=== PATIENT | female | born 1940 | race African-American/Black ===

== ENCOUNTER → 2020-04-16 09:32 | Outpatient (BNVA) | payer MEDICARE, SELFPAY | PROVIDERS: PCP Internal Medicine; Referring Provider Internal Medicine; Visit Provider Internal Medicine | DX: E89.0 Postprocedural hypothyroidism (principal); Z85.850 Personal history of malignant neoplasm of thyroid; E55.9 Vitamin D deficiency, unspecified; R91.8 Other nonspecific abnormal finding of lung field; M81.0 Age-related osteoporosis without current pathological fracture; E21.3 Hyperparathyroidism, unspecified; Z79.899 Other long term (current) drug therapy | CPT/HCPCS: Q3014 ==

== ENCOUNTER 2020-04-18 09:51 | Outpatient (REF) | payer MEDICARE, SELFPAY ==
[2020-04-18 16:31] LABS: Albumin Level 3.8 g/dL (3.5-5.0); Blood Urea Nitrogen 23 mg/dL (9-16); Calcium 8.8 mg/dL (8.4-10.2); Estimated Glomerular Filt Rate 50
[2020-04-18 16:47] LABS: Free T4 (Free Thyroxine) 0.92 ng/dL (0.71-1.85); Thyroid Stimulating Hormone 25.01 uIU/mL (0.32-4.0); Vitamin D 25-OH Total 23.3 ng/mL (>30)
[2020-04-20 11:26] LABS: Calcium (PTHI) 9.1 mg/dL (8.6-10.4); PTHI 83 pg/mL (14-64)
== END 2020-04-18 09:52 | disposition home or self-care (01) ==
LOC: HO.LAB 09:51
PROVIDERS: PCP Internal Medicine; Referring Provider Internal Medicine; Visit Provider Hospitalist
DX: E55.9 Vitamin D deficiency, unspecified (principal); E89.0 Postprocedural hypothyroidism; E21.3 Hyperparathyroidism, unspecified; M81.0 Age-related osteoporosis without current pathological fracture; J44.9 Chronic obstructive pulmonary disease, unspecified; R91.8 Other nonspecific abnormal finding of lung field; Z85.850 Personal history of malignant neoplasm of thyroid
CPT/HCPCS: 82040; 82306; 82310; 82565; 83970; 84439; 84443; 84520; Q3014

== ENCOUNTER 2020-04-19 14:12 | Outpatient (REF) | payer MEDICARE, SELFPAY ==
--- NOTE | 2020-04-19 14:12 | CT_ITS ---
EXAMINATION: CT HEAD WITHOUT CONTRAST CLINICAL INFORMATION: History of malignant neoplasm of the thyroid. COMPARISON: None. TECHNIQUE: Contiguous axial imaging was performed from the skull base to vertex without intravenous contrast. This CT examination was performed using dose optimization techniques as appropriate, variously including the following: * Automated exposure control * Adjustment of mA and/or kV according to patient size (this includes techniques or standardized protocols for targeted exams where dose is matched to indication/reason for exam; i.e. extremities or head) Use of iterative reconstruction technique DLP: 650 mGy-cm. FINDINGS: There is no evidence of acute intracranial hemorrhage or territorial infarction. No abnormal mass effect or midline shift is seen. Woodruff to white matter differentiation is well preserved. No extra-axial fluid collections are identified. No hydrocephalus. Proportional prominence of the ventricles and sulcal spaces is consistent with moderate volume loss. There is no abnormal attenuation within the brain parenchyma. The osseous structures and soft tissues are normal. Near complete opacification of the right maxillary sinus. Prominent left maxillary mucous retention cyst. The mastoid air cells and visualized portions of the paranasal sinuses are otherwise well aerated. CT/CT head/brain wo con IMPRESSION: No acute intracranial pathology. Cerebral volume loss. Bilateral maxillary sinus opacification.
== END 2020-04-19 14:13 | disposition home or self-care (01) ==
LOC: HO.CT 14:12
PROVIDERS: PCP Internal Medicine; Visit Provider Internal Medicine
DX: Z85.850 Personal history of malignant neoplasm of thyroid (principal)
CPT/HCPCS: 70450

== ENCOUNTER 2020-05-10 09:12 | Outpatient (REF) | payer MEDICARE, SELFPAY ==
--- NOTE | 2020-05-10 09:20 | CT_ITS ---
EXAMINATION: CT CHEST WITHOUT CONTRAST CLINICAL INFORMATION: 80-year-old female with history of pulmonary nodules. Other nonspecific abnormal finding of lung nesbitt. COMPARISON: PET-CT imaging from 05/12/2019. TECHNIQUE: Multidetector volumetric CT imaging of the chest was done. Axial MIP volume rendering provided. Sagittal and coronal reformatted images were obtained. This CT examination was performed using dose optimization techniques as appropriate, variously including the following: *Automated exposure control *Adjustment of mA and/or kV according to patient size (this includes techniques or standardized protocols for targeted exams where dose is matched to indication/reason for exam; i.e. extremities or head) *Use of iterative reconstruction technique DLP: 98 mGy-cm FINDINGS: LUNGS AND PLEURA: Mild centrilobular and paraseptal emphysema. Chronic subpleural reticular opacity of scarring at lung apices. Again noted are multiple bilateral groundglass and solid pulmonary nodules, better shown on the current thin slice 0.75 mm images than on the 2.5 mm thick images from the PET-CT imaging exam of 05/12/2019. Findings include a groundglass opacity in the posteromedial right upper lobe that currently measures approximately 1.1 x 1.4 cm (image 102, series 7), compared to 0.9 x 1.2 cm on 05/12/2019. Again, precise comparison with 05/12/2019 is limited by the differences in image slice thickness. A pleural-based nodule measuring up to 0.5 cm AP of the lateral right lower lobe is unchanged (image 292, series 7). The findings in the right middle lobe include a stable 0.3 cm solid, noncalcified nodule in the lateral segment (image 349, series 7). A spiculated left upper lobe nodule of 1.4 cm average diameter that causes retraction of the adjacent major fissure has a stable appearance compared to 05/12/2019. Immediately anterior to the spiculated nodule, there is a old irregular focus of mixed attenuation containing a 0.5 cm sized irregular solid component and surrounding groundglass component. Other groundglass and nodular opacities in the left lung remain similar in appearance compared to 05/12/2019, as well. No pleural effusion. CARDIOVASCULAR: The heart size is normal. Mild atherosclerotic calcification of the thoracic aorta without aneurysm. Pulmonary arteries are normal in size. No pericardial effusion. MEDIASTINUM AND LOWER NECK: Thyroid gland is surgically absent. The esophagus is unremarkable. No mediastinal mass. LYMPHATICS: No axillary or internal mammary lymphadenopathy. No pathologic sized mediastinal or hilar lymph nodes. UPPER ABDOMEN: The evaluation of solid and hollow viscera of the upper abdomen is limited on this noncontrast examination. There is atherosclerotic calcification of the visualized abdominal aorta. Gallbladder is surgically absent. Adrenal glands are unremarkable. There are a few bilateral renal calculi, largest on the right measuring 0.4 cm. No hydronephrosis. A 3.5 cm cortical cyst of the left kidney has a simple appearance on these noncontrast images. An old, stable fat-containing right-sided lumbar hernia is noted inferolateral to the right 12th rib. SKELETAL AND CHEST WALL: Bones are diffusely osteoporotic. Chronic, severe hyperkyphosis (and dextroscoliosis) of the thoracic spine. No aggressive osseous lesions. CT/CT chest wo con IMPRESSION: * Mild pulmonary emphysema. * Multiple solid, subsolid and groundglass nodular opacities are scattered throughout both lungs, and, overall, these have not significantly changed compared to 05/12/2019. The spiculated nodule of 1.4 cm average diameter in the posterior left upper lobe remains stable in size compared to 05/12/2019. Although the size and morphology of the nodule raise suspicion for malignancy, the 12 month stability suggests possibility of a benign lesion. * No lymphadenopathy within the chest. No pleural effusion. * There are a few small nonobstructing renal calculi. * There is an old fat-containing right lumbar hernia.
== END 2020-05-10 09:13 | disposition home or self-care (01) ==
LOC: HO.CT 09:12
PROVIDERS: PCP Internal Medicine; Visit Provider Hospitalist
DX: R91.8 Other nonspecific abnormal finding of lung field (principal)
CPT/HCPCS: 71250

== ENCOUNTER → 2020-06-07 11:54 | Outpatient (BNVA) | payer MEDICARE, SELFPAY | PROVIDERS: PCP Internal Medicine; Visit Provider Internal Medicine | DX: Z13.89 Encounter for screening for other disorder (principal) | CPT/HCPCS: Q3014 ==

== ENCOUNTER → 2020-06-19 14:53 | Outpatient (BNVA) | payer MEDICARE, SELFPAY | PROVIDERS: PCP Internal Medicine; Visit Provider Internal Medicine Cardiovascular Disease | DX: I50.30 Unspecified diastolic (congestive) heart failure (principal); I48.0 Paroxysmal atrial fibrillation | CPT/HCPCS: 93005; 99212 ==

== ENCOUNTER → 2020-06-25 13:22 | Outpatient (BNVA) | payer MEDICARE, SELFPAY | PROVIDERS: PCP Internal Medicine; Visit Provider Hospitalist | DX: R91.8 Other nonspecific abnormal finding of lung field (principal); J41.0 Simple chronic bronchitis | CPT/HCPCS: 99212 ==

== ENCOUNTER → 2020-08-30 12:21 | Outpatient (BNVA) | payer MEDICARE, SELFPAY | PROVIDERS: PCP Internal Medicine; Visit Provider Internal Medicine | DX: E89.0 Postprocedural hypothyroidism (principal); Z85.850 Personal history of malignant neoplasm of thyroid; E55.9 Vitamin D deficiency, unspecified; R91.8 Other nonspecific abnormal finding of lung field; M81.0 Age-related osteoporosis without current pathological fracture; E21.3 Hyperparathyroidism, unspecified | CPT/HCPCS: 99212 ==

== ENCOUNTER 2020-09-07 13:56 | Outpatient (REF) | payer MEDICARE, SELFPAY ==
[2020-09-07 15:17] LABS: Albumin Level 3.7 g/dL (3.5-5.0); Calcium 8.9 mg/dL (8.4-10.2); Phosphorus 3.8 mg/dL (2.7-4.5)
[2020-09-07 15:42] LABS: Free T4 (Free Thyroxine) 1.51 ng/dL (0.71-1.85); Thyroid Stimulating Hormone 0.09 uIU/mL (0.32-4.0)
[2020-09-10 13:43] LABS: Calcium (PTHI) 9.2 mg/dL (8.6-10.4); PTHI 78 pg/mL (14-64)
== END 2020-09-07 13:57 | disposition home or self-care (01) ==
LOC: HO.LAB 13:56
PROVIDERS: PCP Internal Medicine; Visit Provider Internal Medicine
DX: E21.3 Hyperparathyroidism, unspecified (principal); E55.9 Vitamin D deficiency, unspecified; E89.0 Postprocedural hypothyroidism
CPT/HCPCS: 36415; 82040; 82306; 82310; 83970; 84100; 84439; 84443

== ENCOUNTER → 2020-10-24 11:46 | Outpatient (BNVA) | payer MEDICARE, SELFPAY | PROVIDERS: PCP Internal Medicine; Visit Provider Internal Medicine | DX: E89.0 Postprocedural hypothyroidism (principal); E55.9 Vitamin D deficiency, unspecified; M81.0 Age-related osteoporosis without current pathological fracture; E21.3 Hyperparathyroidism, unspecified | CPT/HCPCS: Q3014 ==

== ENCOUNTER 2020-11-06 11:33 | Outpatient (REF) | payer MEDICARE, SELFPAY ==
[2020-11-06 13:20] LABS: Free T4 (Free Thyroxine) 1.48 ng/dL (0.71-1.85); Thyroid Stimulating Hormone 0.25 uIU/mL (0.32-4.0)
[2020-11-06 13:57] LABS: Alanine Aminotransferase 9 U/L (0-31); Albumin Level 3.5 g/dL (3.5-5.0); Alkaline Phosphatase 61 U/L (39-117); Anion Gap 11 (12-20); Aspartate Amino Transferase 18 U/L (5-31); Bilirubin Total 0.5 mg/dL (0.0-1.0); Blood Urea Nitrogen 20 mg/dL (9-16); Carbon Dioxide 26 mmol/L (22-29); Chloride 108 mmol/L (96-108); Estimated Glomerular Filt Rate 48; Glucose Random 76 mg/dL (60-115); Phosphorus 3.8 mg/dL (2.7-4.5); Potassium 4.4 mmol/L (3.3-5.1); Sodium 141 mmol/L (135-145); Total Protein 6.4 g/dL (6.5-8.0)
[2020-11-08 13:06] LABS: Calcium (PTHI) 8.8 mg/dL (8.6-10.4); PTHI 60 pg/mL (14-64)
== END 2020-11-06 11:34 | disposition home or self-care (01) ==
LOC: HO.LAB 11:33
PROVIDERS: PCP Internal Medicine; Visit Provider Internal Medicine
DX: E21.3 Hyperparathyroidism, unspecified (principal); E89.0 Postprocedural hypothyroidism; E55.9 Vitamin D deficiency, unspecified
CPT/HCPCS: 36415; 80053; 82306; 83970; 84100; 84439; 84443

== ENCOUNTER 2020-12-06 12:46 | Outpatient (REF) | payer MEDICARE, SELFPAY ==
--- NOTE | ~2020-12-06 | MM_ITS ---
EXAMINATION: BONE DENSITOMETRY CLINICAL INDICATION: Age-related osteoporosis without current pathological fracture. COMPARISON: Previous BD dated 12/10/2018 and baseline BD dated 10/13/2014. TECHNIQUE: Using a [employer] DXA System (software version: 13.1) manufactured by [employer], dual-energy x-ray absorptiometry was performed of the lumbar spine and left hip. The images are of good technical quality. Summary results are attached. FINDINGS: AP SPINE L1-L4: Current: BMD 0.451 g/cm2, Z-score -3.8, T-score -6.1, osteoporosis, 2.8% decrease from previous, 0.2% increase from baseline (<5% change is not significant). Prior: BMD 0.464 g/cm2. Baseline: BMD 0.450 g/cm2. LEFT FEMUR, NECK: Current: BMD 0.586 g/cm2, Z-score -0.8, T-score -3.2, osteoporosis. Prior: BMD 0.591 g/cm2. Baseline: BMD 0.626 g/cm2. LEFT FEMUR, TOTAL: Current: BMD 0.559 g/cm2, Z-score -1.2, T-score -3.6, osteoporosis, 4.0% decrease from previous, 10.6% decrease from baseline (<5% change is not significant). Prior: BMD 0.582 g/cm2. Baseline: BMD 0.625 g/cm2. IDENTIFIED RISK FACTORS: Menopause, height loss, osteoporosis. HISTORY OF FRACTURE: None listed. MEDICATIONS: Calcium supplements or multivitamin, vitamin D. MM/XR DEXA axial skeleton IMPRESSION: 1. DIAGNOSIS: Osteoporosis based on the lowest T-score value of -6.1 in the lumbar spine applying World Health Organization criteria. 2. 10-YEAR FRACTURE RISK PREDICTION, FRAX: Major osteoporotic fracture (clinical spine, forearm, hip or shoulder) 17.7%. Hip fracture 7.6%. 3. Treatment Recommendations: NOF guidelines recommend consideration for treatment in postmenopausal women and men age 50 and older presenting with the following: -A hip or vertebral (clinical or morphometric) fracture. -T-score less than or equal to -2.5 at the femoral neck or spine after appropriate evaluation to exclude secondary causes. -Low bone mass at the hip or spine and a 10-year fracture probability by FRAX of greater than or equal to 3% for hip fracture or greater than or equal to 20% for major osteoporotic fracture based on the [place] adapted WHO algorithm. 4. Other Recommendations: All treatment decisions require clinical judgment and consideration of individual patient factors, including patient preferences, comorbidities, previous drug use, risk factors not captured in the FRAX model (e.g. frailty, falls, vitamin D deficiency, increased bone turnover, interval significant decline in bone density) and possible under or overestimation of fracture risk by FRAX. Additional medical evaluation for secondary cause of low bone mineral density may be appropriate. FUTURE SCAN RECOMMENDATION: People with diagnosed cases of osteoporosis or at high risk for fracture should have regular bone mineral density tests. For patients eligible for Medicare, routine testing is allowed once every 2 years. The testing frequency can be increased to one year for patients who have rapidly progressing disease, those who are receiving or discontinuing medical therapy to restore bone mass, or have additional risk factors.
== END 2020-12-06 12:47 | disposition home or self-care (01) ==
LOC: HO.MAMMO 12:46
PROVIDERS: Visit Provider Internal Medicine
DX: Z13.820 Encounter for screening for osteoporosis (principal); M81.0 Age-related osteoporosis without current pathological fracture; Z79.899 Other long term (current) drug therapy
CPT/HCPCS: 77080

== ENCOUNTER 2020-12-26 | Outpatient (REF) | payer MEDICARE, SELFPAY | END 2020-12-26 00:01 | LOC: CF | PROVIDERS: Visit Provider Internal Medicine Cardiovascular Disease | DX: R91.8 Other nonspecific abnormal finding of lung field (principal); I48.91 Unspecified atrial fibrillation; I50.30 Unspecified diastolic (congestive) heart failure; Z79.899 Other long term (current) drug therapy; Z87.891 Personal history of nicotine dependence | CPT/HCPCS: 93005; 99212 ==

== ENCOUNTER → 2020-12-27 11:10 | Outpatient (BNVA) | payer MEDICARE, SELFPAY | PROVIDERS: PCP Internal Medicine; Visit Provider Internal Medicine | DX: Z13.89 Encounter for screening for other disorder (principal) | CPT/HCPCS: Q3014 ==

== ENCOUNTER 2021-01-04 11:36 | Outpatient (REF) | payer MEDICARE, SELFPAY ==
--- NOTE | ~2021-01-04 | CT_ITS ---
EXAMINATION: CT CHEST WITHOUT CONTRAST CLINICAL INFORMATION: Follow-up pulmonary nodules COMPARISON: Previous chest CT May 2020 and PET/CT May 2019 TECHNIQUE: Multidetector volumetric CT imaging of the chest was done. Axial MIP volume rendering provided. Sagittal and coronal reformatted images were obtained. This CT examination was performed using dose optimization techniques as appropriate, variously including the following: *Automated exposure control *Adjustment of mA and/or kV according to patient size (this includes techniques or standardized protocols for targeted exams where dose is matched to indication/reason for exam; i.e. extremities or head) *Use of iterative reconstruction technique DLP: 94 mGy-cm FINDINGS: LUNGS: There is biapical pleural parenchymal scarring. There is evidence of emphysema. The 1.5 cm spiculated apical posterior segment, left upper lobe nodule, axial image 157 series 6, does not appear appreciably changed. There is slight retraction of the adjacent left pleural fissure that is unchanged. There are innumerable bilateral upper lobe ground-glass nodules and solid small nodules. These do not appear appreciably changed. Largest ground-glass attenuation nodules measure approximately 1 cm. Largest more solid-appearing nodules measure 5 mm. MEDIASTINUM: The thyroid gland has been removed. There are small mediastinal lymph nodes that are stable. No enlarged lymph nodes are seen. The heart is upper normal in size. There is coronary artery calcification. The thoracic aorta is upper normal in size and calcified and tortuous. PLEURA: There is no pleural effusion. No pleural mass or thickening. AXILLA: No lymphadenopathy. UPPER ABDOMEN: There is a lumbar hernia that is partially visualized, probably unchanged from previous PET/CT scan. There is a small right renal cyst. OSSEOUS STRUCTURES: There is scoliosis and increased thoracic kyphosis. There are degenerative changes of the spine. CT/CT chest wo con IMPRESSION: Stable 1.5 cm spiculated left upper lobe nodule. Stable upper lung ground-glass attenuation and solid nodules. Emphysema.
== END 2021-01-04 11:37 | disposition home or self-care (01) ==
LOC: HO.CT 11:36
PROVIDERS: Visit Provider Hospitalist
DX: R91.8 Other nonspecific abnormal finding of lung field (principal)
CPT/HCPCS: 71250

== ENCOUNTER 2021-08-05 12:47 | Outpatient (REF) | payer MEDICARE, SELFPAY ==
[2021-08-05 13:48] LABS: Alanine Aminotransferase 12 U/L (0-31); Albumin Level 3.5 g/dL (3.5-5.0); Alkaline Phosphatase 64 U/L (39-117); Anion Gap 13 (12-20); Aspartate Amino Transferase 22 U/L (5-31); Bilirubin Total 0.3 mg/dL (0.0-1.0); Blood Urea Nitrogen 25 mg/dL (9-16); Calcium 9.1 mg/dL (8.4-10.2); Carbon Dioxide 24 mmol/L (22-29); Chloride 108 mmol/L (96-108); Estimated Glomerular Filt Rate 44; Glucose Random 92 mg/dL (60-115); Phosphorus 3.3 mg/dL (2.7-4.5); Potassium 4.3 mmol/L (3.3-5.1); Sodium 141 mmol/L (135-145); Total Protein 6.5 g/dL (6.5-8.0)
[2021-08-05 14:08] LABS: Free T4 (Free Thyroxine) 0.92 ng/dL (0.71-1.85); Thyroid Stimulating Hormone 10.25 uIU/mL (0.32-4.0); Vitamin D 25-OH Total 26.8 ng/mL (>30)
[2021-08-06 17:47] LABS: Calcium (PTHI) 8.8 mg/dL (8.6-10.4); PTHI 97 pg/mL (14-64)
[2021-08-08 15:25] LABS: Alkaline Phosphatase Bone 11.2 mcg/L (see note)
[2021-08-09 20:31] LABS: Triiodothyronine T3 Total 72 ng/dL (76-181)
== END 2021-08-05 12:48 | disposition home or self-care (01) ==
LOC: HO.LAB 12:47
PROVIDERS: PCP Internal Medicine; Visit Provider Internal Medicine
DX: M81.0 Age-related osteoporosis without current pathological fracture (principal); E55.9 Vitamin D deficiency, unspecified; Z85.850 Personal history of malignant neoplasm of thyroid
CPT/HCPCS: 36415; 80053; 82306; 83970; 84075; 84100; 84439; 84443; 84480

== ENCOUNTER → 2021-08-07 08:48 | Outpatient (BNVA) | payer MEDICARE, SELFPAY | PROVIDERS: PCP Internal Medicine; Visit Provider Internal Medicine | DX: M81.0 Age-related osteoporosis without current pathological fracture (principal); E55.9 Vitamin D deficiency, unspecified; E89.0 Postprocedural hypothyroidism; E21.3 Hyperparathyroidism, unspecified; Z85.850 Personal history of malignant neoplasm of thyroid | CPT/HCPCS: Q3014 ==

== ENCOUNTER → 2021-08-12 15:22 | Outpatient (BNVA) | payer MEDICARE, SELFPAY | PROVIDERS: PCP Internal Medicine; Visit Provider Hospitalist | DX: J41.0 Simple chronic bronchitis (principal); R91.8 Other nonspecific abnormal finding of lung field; Z85.850 Personal history of malignant neoplasm of thyroid; Z79.899 Other long term (current) drug therapy | CPT/HCPCS: 99212 ==

== ENCOUNTER → 2021-09-05 15:17 | Outpatient (BNVA) | payer OTHER, SELFPAY | PROVIDERS: PCP Internal Medicine; Referring Provider Internal Medicine; Visit Provider Nurse Practitioner Family | DX: I13.0 Hypertensive heart and chronic kidney disease with heart failure and stage 1 through stage 4 chronic kidney disease, or unspecified chronic kidney disease (principal); I50.30 Unspecified diastolic (congestive) heart failure; N18.9 Chronic kidney disease, unspecified; I48.0 Paroxysmal atrial fibrillation; E78.5 Hyperlipidemia, unspecified; E89.0 Postprocedural hypothyroidism; E55.9 Vitamin D deficiency, unspecified; M81.0 Age-related osteoporosis without current pathological fracture; Z87.891 Personal history of nicotine dependence; Z88.6 Allergy status to analgesic agent; Z88.8 Allergy status to other drugs, medicaments and biological substances; Z91.041 Radiographic dye allergy status; Z79.899 Other long term (current) drug therapy | CPT/HCPCS: 99212 ==

== ENCOUNTER 2021-09-29 01:01 | Emergency (ER) | payer OTHER, SELFPAY ==
--- NOTE | ~2021-09-29 | XR_ITS ---
EXAMINATION: XR ABDOMEN KUB CLINICAL INDICATION: Abdominal pain. Assess for constipation. COMPARISON: PET/CT 05/12/2019. TECHNIQUE: AP view of the abdomen. FINDINGS: Scattered bowel gas is noted in nondistended small and large bowel segments. A qualitative moderate colonic stool borderline is noted. Right upper quadrant cholecystectomy clips are visualized. No gross free intraperitoneal gas noted. No findings suspicious for urolithiasis. Dense abdominal aortic calcific atherosclerotic plaques. XR/XR KUB IMPRESSION: Moderate colonic stool burden. No specific evidence of intestinal obstruction.
[2021-09-29 01:21] VITALS: BP 184/96; PULSE 73; RESP 20; TEMP 37.1; O2SAT 95; BMI 21.5
[2021-09-29 02:29] VITALS: BP 176/84; PULSE 70; RESP 16; O2SAT 97
[2021-09-29 02:32] LABS: Basophils Absolute Auto 0.1 X10*3/uL (0.0-0.2); Basophils Percent Auto 0.7 % (0-2); Eosinophils Absolute Auto 0.8 X10*3/uL (0.0-0.4); Eosinophils Percent Auto 9.3 % (0-4); Hematocrit 42.1 % (37.0-47.0); Hemoglobin 13.7 g/dl (12.0-16.0); Imm Gran Abs Auto 0.02 X10*3/uL (0.00-0.03); Imm Gran Pct Auto 0.2 % (0.0-0.4); Lymphocytes Absolute Auto 2.5 X10*3/uL (1.2-4.9); Lymphocytes Percent Auto 29.9 % (20-40); Mean Corpuscular HGB Conc 32.5 g/dl (31.0-35.0); Mean Corpuscular Hemoglobin 28.9 pg (27.0-33.0); Mean Corpuscular Volume 88.8 fL (80.0-98.0); Mean Platelet Volume 10.9 fL (9.4-12.3); Monocytes Absolute Auto 0.8 X10*3/uL (0.1-1.2); Monocytes Percent Auto 9.1 % (2-11); Neutrophils Absolute Auto 4.2 x10*3/uL (2.0-8.3); Neutrophils Percent Auto 50.8 % (45-73); Platelet Count 197 X10*3/uL (160-400); Red Blood Count 4.74 X10*6/uL (4.20-5.50); Red Cell Distribution Width 13.6 % (11.0-16.0); White Blood Count 8.3 X10*3/uL (4.8-10.8)
[2021-09-29 02:33] LABS: MANUAL DIFF FLAG NO
--- NOTE | 2021-09-29 02:34 | PC.NURSE ---
art glass designerViky at bedside with MD for assessment.
--- NOTE | 2021-09-29 02:46 | PC.NURSE ---
Patient bladder scan: 74ml, MD aware.
[2021-09-29 02:53] LABS: Alanine Aminotransferase 10 U/L (0-31); Albumin Level 4.1 g/dL (3.5-5.0); Alkaline Phosphatase 70 U/L (39-117); Anion Gap 15 (12-20); Aspartate Amino Transferase 19 U/L (5-31); Bilirubin Total 0.5 mg/dL (0.0-1.0); Blood Urea Nitrogen 23 mg/dL (9-16); Calcium 9.7 mg/dL (8.4-10.2); Carbon Dioxide 26 mmol/L (22-29); Chloride 104 mmol/L (96-108); Creatinine Clr Calc Pharmacy 25.8; Estimated Glomerular Filt Rate 42; Glucose Random 99 mg/dL (60-115); Lipase 41 U/L (8-78); Potassium 4.6 mmol/L (3.3-5.1); Sodium 140 mmol/L (135-145); Total Protein 7.4 g/dL (6.5-8.0)
[2021-09-29 03:58] VITALS: BP 156/85; PULSE 70; RESP 20; O2SAT 97
--- NOTE | 2021-09-29 04:29 | ED.ABDPAIN ---
HPI - Abdominal Pain General Chief Complaint: Abdominal Pain Stated Complaint: abdominal pain Time Seen by Provider: 09/29/21 02:04 Source: patient, family (Son) and dean of [employer] services Mode of arrival: ambulatory History of Present Illness HPI narrative: 81-year-old female is brought in by her son with complaints mid lower abdominal discomfort that is sharp in nature and worsens with attempting to stand up straight and has not been associated with fever, chills, nausea, vomiting and patient states she has continued to pass flatus and have bowel movements. She does describe urinary pain and burning. Patient otherwise denies any shortness of breath, chest pain/palpitations. Related Data Home Medications Medication Instructions Recorded Confirmed albuterol sulfate 90 mcg/actuation 2 puff INHALATION Q6H PRN 03/08/20 09/06/21 aerosol inhaler albuterol sulfate mg INHALATION Q8H PRN 04/16/20 09/06/21 cholecalciferol (vitamin D3) 25 50 mcg PO DAILY tab 09/13/21 mcg (1,000 unit) tablet Previous Rx's Medication Instructions Recorded cetirizine 10 mg tablet (Zyrtec) 10 mg PO DAILY PRN 30 Days #30 tab 06/27/20 flecainide 50 mg tablet 50 mg PO Q12H 90 Days #180 tab 07/12/21 apixaban 2.5 mg tablet (Eliquis) 2.5 mg PO BID 90 Days #180 tab 08/06/21 furosemide 20 mg tablet 20 mg PO DAILY 90 Days #90 tab 08/06/21 metoprolol tartrate 50 mg tablet 50 mg PO BID 90 Days #180 tab 08/06/21 mirtazapine 15 mg tablet 15 mg PO BEDTIME 90 Days #90 tab 08/06/21 pravastatin 20 mg tablet 20 mg PO DAILY 90 Days #90 tab 08/06/21 calcium citrate 315 mg 2 tab PO BID 30 Days #120 tab 08/07/21 calcium-vitamin D3 6.25 mcg (250 unit) tablet levothyroxine 75 mcg tablet 75 mcg PO DAILY 30 Days #30 tab 08/07/21 fluticasone fur. 100 mcg-umeclid 1 ea INHALATION DAILY #60 ea 09/19/21 62.5 mcg-vilant 25 mcg inhalat.powder (Trelegy Ellipta) cephalexin 500 mg capsule 500 mg PO Q12H 5 Days #10 cap 09/29/21 Allergies Allergy/AdvReac Type Severity Reaction Status Date / Time aspirin Allergy Mild Rash Verified 08/12/21 15:33 Persantine Allergy Mild rash Verified 08/12/21 15:33 IV contrast Allergy Unknown Unknown Uncoded 09/05/21 15:40 Review of Systems Review of Systems Pertinent positives and negatives as stated in HPI 10 point review of systems is otherwise negative. [facility] Past Medical History Source: nursing notes reviewed Medical History (HFpEF) heart failure with preserved ejection fraction Afib Bite from dog CHF (congestive heart failure) CKD (chronic kidney disease) COPD (chronic obstructive pulmonary disease) History of thyroid cancer HLD (hyperlipidemia) HTN (hypertension) Hyperparathyroidism Osteoporosis Paroxysmal atrial fibrillation Postoperative hypothyroidism Pulmonary nodules Vitamin D deficiency Surgical History History of bladder surgery History of parathyroidectomy History of total thyroidectomy Family History Family History Father Hypertension Mother No problems noted. Social History Social History Alcohol intake: never Patient Tobacco Use Status: Former Tobacco user Years Smoked: 40 e-Cigarette/Vaping Use: Never Used Advance Directives: No service: No Current occupational status: retired and disabled Physical Exam ED Vital Signs: Vital Signs - 24 hr 09/29/21 01:21 09/29/21 02:29 09/29/21 03:58 Temperature 98.7 F Pulse Rate 73 70 70 Respiratory Rate 20 16 20 Blood Pressure 184/96 H 176/84 H 156/85 H Pulse Oximetry 95 97 97 09/29/21 05:49 Temperature 98.0 F Pulse Rate 70 Respiratory Rate 16 Blood Pressure 154/81 H Pulse Oximetry 97 BMI result Body Mass Index 21.5 VITAL SIGNS: Reviewed. GENERAL: Well developed, well nourished, in no acute distress. HEAD: Normocephalic/atraumatic EYES: PERRLA, EOMI EARS: Ext canals without abnormality OROPHARYNX: no oral lesions noted, posterior pharynx clear LUNGS: Normal breath sounds. No adventitious sounds or accessory muscle use. SpO2<95> CARDIOVASCULAR: Regular rate and rhythm without noted murmurs, no JVD or lower extremity edema. ABDOMEN: Soft, mid lower abdominal pain without rebound non-distended with bowel sounds. MUSCULOSKELETAL: No tenderness, deformities, or effusions noted on gross inspection. EXTREMITIES: No cyanosis, clubbing or edema. SKIN: Inspection of the skin reveals no rashes NEUROLOGIC: Alert and strength and sensation to light touch were grossly intact x 4. Course Course Course Narrative: 81-year-old female with history and clinical presentation suspicious for cystitis/UTI and felt to be less likely renal colic or diverticulitis. Review of all investigations without acute findings other than obvious UTI, patient received antibiotics as well as Tylenol and then discharged home in stable condition. MDM - Abdominal Pain Lab Data Result diagrams: 09/29/21 02:24 09/29/21 02:24 Labs: Lab Results 09/29/21 09/29/21 09/29/21 Range/Units 02:24 02:24 06:24 WBC 8.3 (4.8-10.8) X10*3/uL RBC 4.74 (4.20-5.50) X10*6/uL Hgb 13.7 (12.0-16.0) g/dl Hct 42.1 (37.0-47.0) % MCV 88.8 (80.0-98.0) fL MCH 28.9 (27.0-33.0) pg MCHC 32.5 (31.0-35.0) g/dl RDW 13.6 (11.0-16.0) % Plt Count 197 (160-400) X10*3/uL MPV 10.9 (9.4-12.3) fL Immature Gran % (Auto) 0.2 (0.0-0.4) % Neut % (Auto) 50.8 (45-73) % Lymph % (Auto) 29.9 (20-40) % [place] % (Auto) 9.1 (2-11) % Eos % (Auto) 9.3 H (0-4) % Baso % (Auto) 0.7 (0-2) % Lymph # (Auto) 2.5 (1.2-4.9) X10*3/uL [place] # (Auto) 0.8 (0.1-1.2) X10*3/uL Eos # (Auto) 0.8 H (0.0-0.4) X10*3/uL Baso # (Auto) 0.1 (0.0-0.2) X10*3/uL Abs Immat Gran (auto) 0.02 (0.00-0.03) X10*3/uL Absolute Neuts (auto) 4.2 (2.0-8.3) x10*3/uL Absolute Nucleated RBC 0.000 (0.0-0.012) X10*3/uL Nucleated RBC % (auto) 0.0 (0.0-0.2) /100WBC Sodium 140 (135-145) mmol/L Potassium 4.6 (3.3-5.1) mmol/L Chloride 104 (96-108) mmol/L Carbon Dioxide 26 (22-29) mmol/L Anion Gap 15 (12-20) BUN 23 H (9-16) mg/dL Creatinine 1.23 (0.5-1.4) mg/dL Estim Creat Clear Calc 25.8 Estimated GFR 42 Random Glucose 99 (60-115) mg/dL Calcium 9.7 D (8.4-10.2) mg/dL Total Bilirubin 0.5 (0.0-1.0) mg/dL AST 19 (5-31) U/L ALT 10 (0-31) U/L Alkaline Phosphatase 70 (39-117) U/L Total Protein 7.4 (6.5-8.0) g/dL Albumin 4.1 (3.5-5.0) g/dL Lipase 41 (8-78) U/L Urine Color YELLOW Urine Appearance CLEAR Urine pH 7.0 (5.0-8.0) Ur Specific Colp 1.015 (1.005-1.025) Urine Protein NEG (NEG-TRACE) MG/DL Urine Glucose (UA) NEG (NEG) MG/DL Urine Ketones NEG (NEG) MG/DL Urine Blood 3+ H (NEG) Urine Nitrite NEG (NEG) Ur Leukocyte Esterase 2+ H (NEG) Urine RBC 15-29 H (0) /HPF Urine WBC 10-14 H (0-4) /HPF Ur Squamous Epith Cells 1+ /LPF Calcium Phosphate Cryst TRACE /LPF Urine Bacteria 1+ /LPF Urine Mucus TRACE /LPF Discharge Plan Discharge Clinical Impression: Acute UTI Patient Disposition: Home, Self-Care Instructions: Urinary Tract Infection in Women (ED) Additional Instructions: 1. Reanude todos denilson medicamentos caseros seg?n lo prescrito. 2. Complete todo el curso de denilson antibi?ticos. 3. Seguimiento con wilson proveedor de atenci?n primaria el lunes por la ma?laura para alok reevaluaci?n y seguimiento del cultivo de orina. Regrese a la fred de emergencias si los s?ntomas empeoran. Prescriptions: New cephalexin 500 mg capsule 500 mg PO Q12H 5 Days Qty: 10 0RF No Action flecainide 50 mg tablet 50 mg PO Q12H 90 Days Qty: 180 0RF Rx Instructions: Please call and schedule cardiology follow-up for refills cholecalciferol (vitamin D3) 25 mcg (1,000 unit) tablet 50 mcg PO DAILY 0RF Trelegy Ellipta 100-62.5-25 mcg blister with device 1 ea inhalation DAILY Qty: 60 2RF cetirizine [Zyrtec] 10 mg tablet 10 mg PO DAILY PRN (Reason: allergy symptoms) 30 Days Qty: 30 0RF Eliquis 2.5 mg tablet 2.5 mg PO BID 90 Days Qty: 180 3RF furosemide 20 mg tablet 20 mg PO DAILY 90 Days Qty: 90 6RF metoprolol tartrate 50 mg tablet 50 mg PO BID 90 Days Qty: 180 1RF mirtazapine 15 mg tablet 15 mg PO BEDTIME 90 Days Qty: 90 0RF pravastatin 20 mg tablet 20 mg PO DAILY 90 Days Qty: 90 3RF albuterol sulfate 90 mcg/actuation HFA aerosol inhaler 2 puff inhalation Q6H PRN0RF levothyroxine 75 mcg tablet 75 mcg PO DAILY 30 Days Qty: 30 4RF calcium citrate-vitamin D3 315 mg-6.25 mcg (250 unit) tablet 2 tab PO BID 30 Days Qty: 120 11RF albuterol sulfate 2.5 mg /3 mL (0.083 %) solution for nebulization inhalation Q8H PRN0RF Referrals: Laura Hood MD [Primary Care Provider] - Print Language: [place]se
[2021-09-29] MEDS: 0.9 % Sodium Chloride 500 ML 999 ML IV (05:29)
[2021-09-29 05:49] VITALS: BP 154/81; PULSE 70; RESP 16; TEMP 36.7; O2SAT 97
[2021-09-29 06:30] LABS: Appearance Urine CLEAR; Color Urine YELLOW; Glucose Urine UA NEG (NEG); Leukocyte Esterase Urine 2+ (NEG); Nitrite Urine NEG (NEG); Specific Gravity - Urine 1.015 (1.005-1.025); UACC Culture Trigger YES; Urine Blood 3+ (NEG); Urine Ketones NEG (NEG); Urine Protein NEG (NEG-TRACE)
[2021-09-29 06:38] LABS: Bacteria Urine 1+ /LPF; Calcium Phosphate Crystals Ur TRACE /LPF; Mucus Urine TRACE /LPF; Squamous Epithelial Cell Urine 1+ /LPF
[2021-09-29 07:15] VITALS: BP 127/101; PULSE 62; RESP 12; O2SAT 100
[2021-09-29] MEDS: Acetaminophen 325 MG TABLET 975 MG PO (07:23)
[2021-09-29] MEDS: cephALEXin 500 MG CAPSULE PO (07:24)
== END 2021-09-29 08:32 | disposition home or self-care (01) ==
PROVIDERS: Emergency Provider Student in an Organized Health Care Education/Training Program; PCP Internal Medicine
DX: N39.0 Urinary tract infection, site not specified (principal); I11.0 Hypertensive heart disease with heart failure; I50.30 Unspecified diastolic (congestive) heart failure; I48.0 Paroxysmal atrial fibrillation; J44.9 Chronic obstructive pulmonary disease, unspecified
CPT/HCPCS: 36415; 74018; 80053; 81001; 83690; 85025; 87086; 96365; 99284; 99285

== ENCOUNTER 2021-11-11 11:49 | Outpatient (REF) | payer OTHER, SELFPAY ==
[2021-11-11 12:42] LABS: Alanine Aminotransferase 14 U/L (0-31); Albumin Level 3.9 g/dL (3.5-5.0); Alkaline Phosphatase 64 U/L (39-117); Anion Gap 13 (12-20); Aspartate Amino Transferase 19 U/L (5-31); Bilirubin Total 0.4 mg/dL (0.0-1.0); Blood Urea Nitrogen 24 mg/dL (9-16); Calcium 9.1 mg/dL (8.4-10.2); Carbon Dioxide 26 mmol/L (22-29); Chloride 106 mmol/L (96-108); Estimated Glomerular Filt Rate 44; Glucose Random 74 mg/dL (60-115); Phosphorus 4.2 mg/dL (2.7-4.5); Potassium 4.1 mmol/L (3.3-5.1); Sodium 141 mmol/L (135-145); Total Protein 7.1 g/dL (6.5-8.0)
[2021-11-11 13:03] LABS: Free T4 (Free Thyroxine) 1.41 ng/dL (0.71-1.85); Thyroid Stimulating Hormone 2.16 uIU/mL (0.32-4.0); Vitamin D 25-OH Total 28.2 ng/mL (>30)
[2021-11-12 14:16] LABS: Calcium (PTHI) 9.4 mg/dL (8.6-10.4); PTHI 80 pg/mL (16-77)
[2021-11-12 19:32] LABS: Thyroglobulin <0.1 ng/mL; Thyroglobulin Antibodies <1 IU/mL (< or = 1)
== END 2021-11-11 11:50 | disposition home or self-care (01) ==
LOC: HO.LAB 11:49
PROVIDERS: PCP Internal Medicine; Visit Provider Internal Medicine
DX: E21.3 Hyperparathyroidism, unspecified (principal); E55.9 Vitamin D deficiency, unspecified; Z85.850 Personal history of malignant neoplasm of thyroid
CPT/HCPCS: 36415; 80053; 82306; 83970; 84100; 84432; 84439; 84443; 86800

== ENCOUNTER → 2021-11-13 12:21 | Outpatient (BNVA) | payer OTHER, SELFPAY | PROVIDERS: PCP Internal Medicine; Visit Provider Internal Medicine | DX: E89.0 Postprocedural hypothyroidism (principal); M81.0 Age-related osteoporosis without current pathological fracture; E55.9 Vitamin D deficiency, unspecified; E21.3 Hyperparathyroidism, unspecified; Z85.850 Personal history of malignant neoplasm of thyroid; Z79.899 Other long term (current) drug therapy | CPT/HCPCS: Q3014 ==

== ENCOUNTER 2022-01-07 13:01 | Outpatient (REF) | payer OTHER, SELFPAY ==
--- NOTE | ~2022-01-07 | CT_ITS ---
EXAMINATION: CT CHEST WITHOUT CONTRAST CLINICAL INFORMATION: Other nonspecific abnormal findings of lung nesbitt. Follow-up pulmonary nodules. COMPARISON: CT chest 01/04/2021. TECHNIQUE: Multidetector volumetric CT imaging of the chest was done. Axial MIP volume rendering provided. Sagittal and coronal reformatted images were obtained. This CT examination was performed using dose optimization techniques as appropriate, variously including the following: *Automated exposure control *Adjustment of mA and/or kV according to patient size (this includes techniques or standardized protocols for targeted exams where dose is matched to indication/reason for exam; i.e. extremities or head) *Use of iterative reconstruction technique DLP: 103 mGy-cm FINDINGS: HEATER ROOM HELPER: Hyperinflated lungs. LUNGS: There is a barrel-shaped chest with hypoinflated lungs. There is minimal bilateral apical pleural thickening and parenchymal scarring. There is a spiculated nodule in the right lung apex with tenting of the superior major fissure. It measures 1.5 x 1.1 cm on axial image 109/9, suspicious. There is an adjacent ill-defined ground-glass opacity anterior to the dominant nodule measuring approximately 1 cm, similar to the previous study. There are several additional ill-defined opacities in the right upper lobe measuring 7 mm and less on axial image 136/9, 2 mm nodules right upper lobe subpleural and adjacent to the major fissure on axial image 134/9, 144/9 superior segment left lower lobe (axial image 181/9), anteriorly in the right upper lobe (axial image 207/9), new. There is no consolidation, bronchiectasis or bronchial wall thickening. Several subpleural-based nodular thickening right lower lobe, right upper lobe better visualized on 8 mm thickness are new. MEDIASTINUM: Heart size and the great vessels are normal caliber. There are coronary artery and aortic mitral valve calcifications. No pericardial effusion. The central trachea and the bronchi are widely patent. No abnormal-sized mediastinal or hilar lymph nodes are seen. Thyroid lobes are not visualized. Incidental finding of bilateral chronic maxillary sinus inflammatory changes/polyps or retention cyst. PLEURA AND CHEST WALL: There is no pleural effusion. No pleural mass or thickening. There is posterior upper abdominal/lumbar wall hernia containing intraperitoneal fat, unchanged to the previous study. AXILLAE: No lymphadenopathy. UPPER ABDOMEN: The visualized liver, spleen, pancreas and bilateral adrenal glands are unremarkable. The gallbladder has been surgically removed. OSSEOUS STRUCTURES: There is an exaggerated thoracic kyphosis, scoliosis with calcification of the anterior longitudinal ligament. No compressive fracture or lytic process is seen. There is diffuse osteopenia. CT/CT chest wo con IMPRESSION: Hyperinflated lungs with a barrel-shaped chest, likely COPD. There are several bilateral pulmonary nodules, most suspicious in the left upper lobe, but stable. There are small, new pulmonary nodules visualized. No change in the ground-glass density in the left upper lobe. No abnormal mediastinal or axillary adenopathy. No change in the right posterior abdominal/lumbar hernia. Fleischner guidelines were followed.
== END 2022-01-07 13:02 | disposition home or self-care (01) ==
LOC: HO.CT 13:01
PROVIDERS: PCP Internal Medicine; Visit Provider Hospitalist
DX: R91.8 Other nonspecific abnormal finding of lung field (principal)
CPT/HCPCS: 71250

== ENCOUNTER 2022-03-21 17:09 | Outpatient (REF) | payer OTHER, SELFPAY ==
[2022-03-21 18:02] LABS: Alanine Aminotransferase 11 U/L (0-31); Albumin Level 3.9 g/dL (3.5-5.0); Alkaline Phosphatase 68 U/L (39-117); Anion Gap 17 (12-20); Aspartate Amino Transferase 21 U/L (5-31); Bilirubin Total 0.4 mg/dL (0.0-1.0); Blood Urea Nitrogen 13 mg/dL (9-16); Calcium 8.9 mg/dL (8.4-10.2); Carbon Dioxide 24 mmol/L (22-29); Chloride 103 mmol/L (96-108); Estimated Glomerular Filt Rate 50; Glucose Random 117 mg/dL (60-115); Phosphorus 3.3 mg/dL (2.7-4.5); Potassium 3.8 mmol/L (3.3-5.1); Sodium 140 mmol/L (135-145); Total Protein 7.3 g/dL (6.5-8.0)
[2022-03-21 18:22] LABS: Free T4 (Free Thyroxine) 1.28 ng/dL (0.71-1.85); Thyroid Stimulating Hormone 2.05 uIU/mL (0.32-4.0); Vitamin D 25-OH Total 39.7 ng/mL (>30)
[2022-03-24 15:02] LABS: Calcium (PTHI) 8.7 mg/dL (8.6-10.4); PTHI 82 pg/mL (16-77)
[2022-03-24 17:11] LABS: Thyroglobulin <0.1 ng/mL; Thyroglobulin Antibodies <1 IU/mL (< or = 1)
[2022-03-26 20:31] LABS: Alkaline Phosphatase Bone 13.1 mcg/L (see note)
== END 2022-03-21 17:10 | disposition home or self-care (01) ==
LOC: HO.LAB 17:09
PROVIDERS: PCP Internal Medicine; Visit Provider Internal Medicine
DX: M81.0 Age-related osteoporosis without current pathological fracture (principal); E89.0 Postprocedural hypothyroidism; E55.9 Vitamin D deficiency, unspecified
CPT/HCPCS: 36415; 80053; 82306; 83970; 84075; 84100; 84432; 84439; 84443; 86800

== ENCOUNTER 2022-04-08 17:35 | Outpatient (REF) | payer OTHER, SELFPAY ==
[2022-04-15 05:07] LABS: N-Telopeptide 52 (see note); NTXCreaRU 147 mg/dL (20-275)
== END 2022-04-08 17:36 | disposition home or self-care (01) ==
LOC: HO.LNP 17:35
PROVIDERS: Visit Provider Internal Medicine
DX: M81.0 Age-related osteoporosis without current pathological fracture (principal)
CPT/HCPCS: 82523

== ENCOUNTER → 2022-04-30 10:00 | Outpatient (BNVA) | payer OTHER, SELFPAY | PROVIDERS: PCP Internal Medicine; Visit Provider Hospitalist | DX: Z23 Encounter for immunization (principal); J41.0 Simple chronic bronchitis; R91.8 Other nonspecific abnormal finding of lung field; Z85.850 Personal history of malignant neoplasm of thyroid | CPT/HCPCS: 90471; 90686; 99212 ==

== ENCOUNTER 2023-01-05 08:23 | Outpatient (AMB) | payer OTHER, SELFPAY ==
--- NOTE | 2023-01-05 08:24 | MHC.OFFVIS ---
Intake Intake Visit Reasons: Thyroid cancer Intake Note: Thyroid cancer follow up visit. Allergies aspirin Allergy (Mild, Verified 01/05/23 08:34) Rash dipyridamole [From Persantine] Allergy (Mild, Verified 01/05/23 08:34) Rash Iodinated Contrast Media [IV Contrast Dye] Allergy (Unknown, Verified 01/05/23 08:34) Unknown Medication List - Last Reconciled 01/05/23 by Ann Rojas, albuterol sulfate 90 mcg/actuation 2 puffs inhalation Q6H PRN albuterol sulfate 2.5 mg (3 mL) inhalation Q8H PRN albuterol sulfate 90 mcg/actuation 2 inhalations inhalation Q6H PRN 30 days apixaban (Eliquis) 2.5 mg PO BID 90 days calcium citrate-vitamin D3 315 mg-6.25 mcg (250 unit) 2 tabs PO BID 30 days cetirizine (Zyrtec) 10 mg PO DAILY PRN 30 days cholecalciferol (vitamin D3) 50 mcg PO DAILY cholecalciferol (vitamin D3) 50 mcg PO DAILY 30 days flecainide 50 mg PO Q12H furosemide 20 mg PO DAILY 90 days levothyroxine 75 mcg PO DAILY 30 days metoprolol tartrate 50 mg PO BID 90 days mirtazapine 15 mg PO BEDTIME 90 days pravastatin 20 mg PO DAILY 90 days Trelegy Ellipta 100-62.5-25 mcg ([id number]) 1 ea PO DAILY NS HPI HPI Comments History of Present Illness Details 82 YO Female with an extensive PMHx who is seen in F/U for NTMNG, Hyperparathyroidism and Osteoporosis. Of note, she is a very poor historian and the majority of history is gathered from chart review and from her Son in Law. They have been consistently poorly compliant with my recommendations. She was previously followed by Dr. Marquez, but was lost to F/U after 07/13/15. 1) NTMNG: She initially presented to see me due to Severe Osteoporosis and Hyperparathyroidism. I checked an US of the neck to assess for a parathyroid adenoma. This revealed a large 3.5 cm R sided thyroid nodule as well as multiple enlarged R cervical lymph nodes. She subsequently underwent a PET CT due to a pulmonary nodule. This revealed the R sided thyroid nodule to be intensely FDG avid with max SUV 11.6. She was also found to have multiple FDG avid cervical lymph nodes, most notably a 1.6 cm L cervical level 2 lymph node. She had multiple bilateral pulmonary nodules that were FDG avid as well as a bladder lesion. 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 She also underwent FNA biopsy at that time of the L cervical level 2 lymph node with cytology revealing just lymphocytes. Flow cytometry revealed normal appearing lymphocytes. She underwent a total thyroidectomy 11/09/2019 with removal of a hyperplastic L inferior parathyroid as well. Official surgical path revealed 0.1 cm focus of PTC. 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 No lymph nodes were excised. This was staged as [id number]. She was started on Levothyroxine 50 mcg PO daily, which was increased to 75 mcg PO daily. She was confused and began taking the 50 mcg dose again, and labs now show hypothyroidism. She takes this correctly and denies any symptoms of hyper or hypothyroidism. TSH checked 01/12/2020 was 16.38. She also had TG level of 0.6 and TG antibodies negative at that time. Her hospital course was complicated by AFib with RVR. She did have a prolonged hospital course due to this. She subsequently underwent a thyrogen stimulated I-131 whole body scan 02/24/2020. Labs 02/22/2020 with TSH 377, negative TG antibodies, and TG level of 0.3. The scan revealed faint uptake within the neck, as well as an intense focus of uptake within the face to the right of midline corresponding to likely the sphenoid or ethmoid sinus. CT of the head revealed this to be a mucus retention cyst. 2) Osteoporosis and Hyperparathyroidism: She has a known history of severe Osteoporosis, and had been on Fosamax for many years. This was stopped at an unknown date. It does appear she was diagnosed with Primary Hyperparathyroidism years ago, but did not complete her workup and was not referred for surgery. She did have labs completed 03/15/15 with Total Calcium of 10.2, no albumin checked, Ionized Calcium of 5.9, PTH 97 with Vitamin D 40.2. She was lost to F/U and then was referred to Rheumatology for her Osteoporosis. Labs were repeated 11/10/18 with Cr of 0.93, GFR of 58, Total Calcium 10.3 with Albumin 4.0, Vitamin D 42.7. No PTH was assessed. DEXA was checked 12/10/2018 which revealed severe Osteoporosis of the spine with T score of -6.0. Hips were in Osteoporotic range with T score of -3.4. No forearm BMD was checked. She was subsequently referred to Endocrinology. We repeated labs after her initial visit with results 05/04/19 PTH 63, Total Calcium 9.9, Albumin 3.7, Vitamin D 36.3, Ionized Calcium 5.8. Her 24 hour urine calcium and creatnine were WNL, and not consistent with FHH. She was referred for Parathyroidectomy and also underwent this 11/09/2019. She had removal of a L inferior hyperplastic parathyroid gland. Labs checked 01/12/2020 reveal Calcium WNL at 9.0 but PTH remains elevated at 86 with Vitamin D of 28.4. She is taking Vitamin D 1000 IU daily. She did remain on Fosamax, which was prescribed by her PCP. She stopped this as of April 2020. It is unclear if she is using daily prednisone currently, but it does appear she has used prednisone frequently in the past. She is also on full AC with Eliquis due to pAFib. Repeat labs reveal PTH is elevated, with low normal calcium. She presents today to review. She walks throughout the day, but does no scheduled exercise. Fracture history: Denies. Height loss: Does report height loss, but is unable to quantify. 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 , she did not breastfeed. She is unsure of when menopause was. History of Kidney stones: Denies. Denies family history of Osteoporosis or hip fracture. She is not UTD on dental cleanings, and has not seen a dentist in many years. I-131 whole body scan 02/24/2020: Imaging shows a focus of increased metabolic activity in the midline of the lower neck just slightly to the left of midline. This could represent some residual thyroid tissue or disease. Also there is a fairly intense focus of increased metabolic activity in the face just to the right of the midline anteriorly. This could be within the maxillary sinus or ethmoid sinus. There is activity demonstrated in the region of the stomach, bowel and bladder which is certainly within normal limits for by a distribution. Impression: Activity in the neck which is likely the result of residual thyroid tissue/disease. Activity in the face which is suspicious for metastatic disease. Correlation with CT with IV contrast would be helpful. DXA dated 12/06/2020: AP SPINE L1-L4: Current: BMD 0.451 g/cm2, Z-score -3.8, T-score -6.1, osteoporosis, 2.8% decrease from previous, 0.2% increase from baseline (<5% change is not significant). Prior: BMD 0.464 g/cm2. Baseline: BMD 0.450 g/cm2. LEFT FEMUR, NECK: Current: BMD 0.586 g/cm2, Z-score -0.8, T-score -3.2, osteoporosis. Prior: BMD 0.591 g/cm2. Baseline: BMD 0.626 g/cm2. LEFT FEMUR, TOTAL: Current: BMD 0.559 g/cm2, Z-score -1.2, T-score -3.6, osteoporosis, 4.0% decrease from previous, 10.6% decrease from baseline (<5% change is not significant). Prior: BMD 0.582 g/cm2. Baseline: BMD 0.625 g/cm2 PET CT 05/12/19: There is intensely increased FDG activity bilaterally in the palatine tonsils, but these appear symmetrically enlarged bilaterally on the CT images. The FDG activity is very homogeneous bilaterally, showing SUV Max 13.8 and a focus in the left side, slice 20/223. Bilateral FDG avid cervical level IIa and IIb lymph nodes are present, and most of these are not enlarged, but the most prominent is a lymph node in the left to a level showing SUV Max 6.2, slice 23/223 corresponding to a lymph node on the CT images that measures 1.6 x 0.9 cm in largest transverse dimensions. There are additional bilateral FDG avid cervical level 3 and 4 lymph nodes present, and all of these appear normal in size. There is almost complete opacification of the right maxillary sinus and a mucosal retention cyst replaces approximately one half the volume of the left maxillary sinus. There is no abnormal FDG activity on the left, the diffuse FDG activity is present of mild intensity in the right maxillary sinus, predominantly peripherally. There is an intensely FDG avid right thyroid nodule, showing SUV Max 11.6, slice 37/223. This corresponds to a hypodense nodule on the CT images that measures 3.3 x 2.9 cm in largest transverse dimensions, and approximately 2.7 cm cephalocaudad. This contains some punctate central calcifications. No other foci of abnormal FDG activity are present in the neck or visualized head. All the other activity in this region appears physiological. THORAX: Multiple pulmonary nodules are present. Most of these are small subcentimeter nodules, there is a dominant nodule which abuts the interlobar fissure in the left upper lobe which is mild FDG activity, SUV Max 2.3, slice 55/292, corresponding to a nodule on the CT images that measures 1.5 x 1.1 cm in largest transverse dimensions. 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 All of these additional nodules are too small to be characterized on the FDG PET images. There is by lateral apical scarring with no associated abnormal FDG activity. There is no pleural or pericardial fluid, or pneumothorax. There is no mediastinal, supraclavicular, or axillary lymphadenopathy. ABDOMEN AND PELVIS: No foci of abnormal FDG activity are present in the abdomen or pelvis. There is mild diffuse FDG activity throughout the gastrointestinal tract without a suspicious focal component. There is diverticulosis without evidence of diverticulitis. The hollow viscera are otherwise unremarkable. The liver and spleen are unremarkable. The gallbladder has been resected and there are metallic surgical clips in the gallbladder bed. There is a hypodense cyst laterally in the mid left kidney, and this is markedly FDG photopenic. The kidneys are otherwise unremarkable. The adrenal glands and pancreas are unremarkable. There is no retroperitoneal, mesenteric, pelvic or inguinal lymphadenopathy. There is some calcified uterine fibroids. There is a possible soft tissue mass measuring 2.0 x 1.8 cm in the posterior bladder wall that is not well delineated on these nondiagnostic CT images and is difficult to evaluate for FDG accumulation because of the intense activity within the bladder due to physiological excreted FDG activity. The pelvic organs are otherwise unremarkable. MUSCULOSKELETAL: No foci of abnormal FDG activity are present in the osseous structures. There is a severe thoracic kyphosis and some degenerative changes are present in the spine but no suspicious sclerotic or lytic lesions are visualized. VASCULAR: Diffuse vascular calcifications including coronary are noted. Labs: Laboratory Tests 11/11/21 11/11/21 12:00 12:00 Albumin 3.9 25-OH Vitamin D To tank 28.2 TSH 2.16 Free T4 1.41 PTH Intact 80 H Calcium (PTH Intac t) 9.4 Laboratory Tests 11/11/21 12:00 Creatinine 1.18 Estimated GFR 44 PFSH Medical History (HFpEF) heart failure with preserved ejection fraction Afib Bite from dog CHF (congestive heart failure) CKD (chronic kidney disease) COPD (chronic obstructive pulmonary disease) History of thyroid cancer HLD (hyperlipidemia) HTN (hypertension) Hyperparathyroidism Osteoporosis Paroxysmal atrial fibrillation Postoperative hypothyroidism Pulmonary nodules Vitamin D deficiency Surgical History History of bladder surgery History of parathyroidectomy History of total thyroidectomy Family History Father Hypertension Mother No problems noted. Social History Alcohol intake: never Patient Tobacco Use Status: Former Tobacco user Years Smoked: 40 e-Cigarette/Vaping Use: Never Used service: No Current occupational status: retired and disabled Assessment & Plan Assessment & Plan (1) History of thyroid cancer: Code(s): Z85.850 - Personal history of malignant neoplasm of thyroid Plan: Patient with 0.1 cm focus of PTC within the thyroid, now s/p total thyroidectomy, [id number]. She does have multiple PET positive cervical lymph nodes, as well as pulmonary nodules. She has not undergone I131 remnant ablation at this point. Her I131 WBS did reveal uptake within the central neck, as well as within the face. Her stimulated TG levels remain low. I do not suspect recurrence of thyroid cancer, or mets at this time. CT revealed the uptake within the face to be a mucus retention cyst. I do not anticipate I131 remnant ablation will be necessary, given that this is JONATHAN low risk of recurrence, and remnant ablation is not recommended. TSH goal is 0.5-2.0. TSH is slightly above goal, but given the difficulties we have had controlling her TSH and also her AFIB we will continue with levothyroxine 75 mcg PO daily. She will repeat labs now to reassess. All of her questions were answered. She is in agreement with this plan of care. I spent 20 minutes in reviewing the record, seeing the patient and documenting in the medical record, including 5 minutes on the phone with the Patient. (2) Postoperative hypothyroidism: Code(s): E89.0 - Postprocedural hypothyroidism Plan: Will repeat levels now and adjust as indicated. (3) Osteoporosis: Code(s): M81.0 - Age-related osteoporosis without current pathological fracture Qualifiers: Osteoporosis type: unspecified Presence of current pathological fracture: unspecified Qualified Code(s): M81.0 - Age-related osteoporosis without current pathological fracture Plan: Patient with severe Osteoporosis secondary to hyperparathyroidism, AC and also prior steroid use. She does require treatment at this time. Her only option is Prolia given her CKD. Will repeat levels now and then start Prolia. Will also check DXA as she is due. We reviewed that she is high risk for a fracture and reviewed fall precautions. (4) Vitamin D deficiency: Code(s): E55.9 - Vitamin D deficiency, unspecified Plan: Will repeat levels now. (5) Hyperparathyroidism: Code(s): E21.3 - Hyperparathyroidism, unspecified Plan: Patient with hyperparathyroidism that has led to severe Osteoporosis. She did undergo a single gland parathyroidectomy. Will repeat levels now. Orders: Orders Free T4 (Free Thyroxine) Today Z85.850 - Personal history of malignant neoplasm of thyroid Thyroid Stimulating Hormone Today Z85.850 - Personal history of malignant neoplasm of thyroid Thyroglobulin Tumor Marker Today Z85.850 - Personal history of malignant neoplasm of thyroid Comprehensive Met. Panel Today M81.0 - Age-related osteoporosis without current pathological fracture Phosphorus Today M81.0 - Age-related osteoporosis without current pathological fracture PTHI Today M81.0 - Age-related osteoporosis without current pathological fracture Vitamin D 25-OH Total Today E55.9 - Vitamin D deficiency, unspecified Collagen Crosslinks NTX Today M81.0 - Age-related osteoporosis without current pathological fracture XR DEXA appendicular skeleton Today M81.0 - Age-related osteoporosis without current pathological fracture XR DEXA axial skeleton Today M81.0 - Age-related osteoporosis without current pathological fracture Telehealth Telehealth Location of provider rendering services: practice address Location of patient: address on file Patient Identification confirmed using: Name, : Yes Telehealth method: voice only Patient verbally consented to treatment: Yes Patient verbally consented to billing insurance company: Yes Patient informed of any privacy concerns related to visit: Yes Coding Level of Care Code Tele Est Pt Level 3 (25095) Diagnoses History of thyroid cancer Z85.850 Postoperative hypothyroidism E89.0 Osteoporosis M81.0 Osteoporosis type: unspecified Presence of current pathological fracture: unspecified Vitamin D deficiency E55.9 Hyperparathyroidism E21.3
== END 2023-01-05 09:45 | disposition home or self-care (01) ==
LOC: HO.ENCR 08:24
PROVIDERS: PCP Internal Medicine; Visit Provider Internal Medicine
DX: Z85.850 Personal history of malignant neoplasm of thyroid (principal); E89.0 Postprocedural hypothyroidism; M81.0 Age-related osteoporosis without current pathological fracture; E55.9 Vitamin D deficiency, unspecified; E21.3 Hyperparathyroidism, unspecified
CPT/HCPCS: 99443

== ENCOUNTER → 2023-01-05 08:23 | Outpatient (BNVA) | payer OTHER, SELFPAY | PROVIDERS: PCP Internal Medicine; Visit Provider Internal Medicine ==

== ENCOUNTER 2023-01-08 07:22 | Outpatient (AMB) | payer OTHER, SELFPAY ==
[2023-01-08 07:25] VITALS: PULSE 68; O2SAT 96; BMI 24.0
--- NOTE | 2023-01-08 07:25 | MHC.PC.OV ---
Vital Signs 01/08/23 07:25 Height 4 ft 10 in Weight 115 lb BMI 24.0 Blood Pressure Location Lt brachial Position Sitting Pulse 68 Pulse Source Pulse Oximeter Pulse Oximetry (%) 96 Oxygen Delivery Method Room Air Intake Visit Reasons: Annual PE Allergies aspirin Allergy (Mild, Verified 01/08/23 07:40) Rash dipyridamole [From Persantine] Allergy (Mild, Verified 01/08/23 07:40) Rash Iodinated Contrast Media [IV Contrast Dye] Allergy (Unknown, Verified 01/08/23 07:40) Unknown Medication List - Last Reconciled 01/08/23 by Qi Salinas, KIRSTIN albuterol sulfate 2.5 mg (3 mL) inhalation Q8H PRN albuterol sulfate 90 mcg/actuation 2 inhalations inhalation Q6H PRN 30 days apixaban (Eliquis) 2.5 mg PO BID 90 days calcium citrate-vitamin D3 315 mg-6.25 mcg (250 unit) 2 tabs PO BID 30 days cetirizine (Zyrtec) 10 mg PO DAILY PRN 30 days cholecalciferol (vitamin D3) 50 mcg PO DAILY 30 days flecainide 50 mg PO Q12H furosemide 20 mg PO DAILY 90 days levothyroxine 75 mcg PO DAILY 30 days metoprolol tartrate 50 mg PO BID 90 days mirtazapine 15 mg PO BEDTIME 90 days pravastatin 20 mg PO DAILY 90 days Trelegy Ellipta 100-62.5-25 mcg (swhsnfqeucg-kraavfdun-whkiwaib) 1 ea PO DAILY NS Tobacco use date assessed: 01/08/23 Fall risk assessment: 1 Fall in past year Last assessed Fall Risk: 01/08/23 Dental Screening Dental Screen Date: 01/08/23 Did you have a dental visit in the last 12 months?: No Did you have a dental problem in the last 6 months where you did not have access to dental care?: No Was dental information given to patient?: No HPI HPI Comments History of Present Illness Details 82-year-old female past history significant for COPD, paroxysmal AFib, failure with preserved EF, vitamin-D deficiency osteoporosis, hyperparathyroidism, history of thyroid cancer. Review of the notes patient currently following with Dr. Soto endocrinology, at this time is not believed patient has reoccurence of her thyroid CA and is to continue on 75mcg of levothyroxine and have repeat labs completed. Fasting lipid panel added to CMP, TSH labs ordered by Dr. Soto eye exam: recommended every couple of years. Patient up to date on recommended immunizations. [facility] Medical History (HFpEF) heart failure with preserved ejection fraction Afib Bite from dog CHF (congestive heart failure) CKD (chronic kidney disease) COPD (chronic obstructive pulmonary disease) History of thyroid cancer HLD (hyperlipidemia) HTN (hypertension) Hyperparathyroidism Osteoporosis Paroxysmal atrial fibrillation Postoperative hypothyroidism Pulmonary nodules Vitamin D deficiency Surgical History History of bladder surgery History of parathyroidectomy History of total thyroidectomy Family History Father Hypertension Mother No problems noted. Social History Housing: Apartment Alcohol intake: never Patient Tobacco Use Status: Former Tobacco user Tobacco use type: Cigarette Years Smoked: 40 e-Cigarette/Vaping Use: Never Used Second Hand Smoke Exposure: No service: No Current occupational status: retired and disabled Cognitive needs: No Hearing needs: No Vision needs: Yes Questionnaire PHQ-9 Over the last 2 weeks, how often have you been bothered by any of the following problems? 1. Little interest or pleasure in doing things: not at all 2. Feeling down, depressed, or hopeless: not at all 3. Trouble falling or staying asleep, or sleeping too much: not at all 4. Feeling tired or having little energy: not at all 5. Poor appetite or overeating: not at all 6. Feeling bad about yourself - or that you are a failure or have let yourself or your family down: not at all 7. Trouble concentrating on things, such as reading the newspaper or watching television: not at all 8. Moving or speaking so slowly that other people could have noticed. Or the opposite - being so fidgety or restless that you have been moving around a lot more than usual: not at all 9. Thoughts that you would be better off or of hurting yourself in some way: not at all Total score: 0 Depression Screening Interpretation: Negative Source: Developed by Drs. Tyler Dash, Germaine Núñez, Jean Paul Lopez and colleagues, with an educational stephanie from [email or web address]. Thrive Questionnaire Date Thrive assessed: 01/08/23 I am a: Parent/Caregiver What is your living situation today?: I have a steady place to live Within the past 12 months, did the food you bought not last and you didn't have the money to get more?: Never true Within the past 12 months, did you worry whether your food would run out before you got money to buy more?: Never true Do you have trouble paying for medicines?: No Do you have trouble getting transportation to medical appointments?: No Do you have trouble paying your heating and electricity bill?: No Do you have trouble taking care of your child, family member or friend?: No Do you have trouble with day-to-day activities such as bathing, preparing meals, shopping, managing finances, etc.?: No Are you currently unemployed and looking for a job?: No Are you interested in more education?: No Currently or been in a relationship where the following occur: no concerns reported AUDIT C Alcohol Use Questionnaire (AUDIT-C) 1. How often do you have a drink containing alcohol?: Never Total Score: 0 NIYAH-7 AMB Questionnaire NIYAH-7 Date NIYAH - 7 assessed: 01/08/23 Feeling nervous, anxious, or on edge: 0 = Not at all Not being able to stop or control worryin = Not at all Worrying too much about different things: 0 = Not at all Trouble relaxin = Not at all Being so restless that it is hard to sit still: 0 = Not at all Becoming easily annoyed or irritable: 0 = Not at all Feeling afraid as if something awful might happen: 0 = Not at all Total NIYAH-7 score (0-4 normal; 5-9 mild; 10-14 moderate; 15-21 severe): 0 Source: Developed by Germaine Blanco Kurt Kroenke and colleagues, with an educational stephanie from [email or web address]. NIYAH-7 Assessment Billing NIYAH-7 Assessment Tool: NIYAH-7 Assessment 20209 Review of Systems Const Denies chills, Denies fatigue, Denies fever(s) and Denies poor appetite Eyes Denies no additional complaints ENT Reports Normal hearing present Card Denies chest pain, Denies syncope, Denies rapid heart rate and Denies dyspnea Resp Denies cough and Denies dyspnea GI Denies change in stool character, Denies constipation, Denies diarrhea, Denies nausea and Denies vomiting Denies urinary frequency, Denies dysuria and Denies urinary urgency Neuro Reports Normal hearing present, Denies confusion and Denies syncope Psych Denies confusion Endo Denies fatigue Physical exam (Primary Care) Vital Signs: Last Vital Signs Pulse 68 01/08/23 07:25 Pulse Ox 96 01/08/23 07:25 Oxygen Delivery Method Room Air 01/08/23 07:25 BMI result Body Mass Index 24.0 Tobacco/Smoking Status: Tobacco use Status Tobacco use date assessed 01/08/23 01/08/23 07:32 Patient Tobacco Use Status Former Tobacco user 01/08/23 07:32 Tobacco use type Cigarette 01/08/23 07:32 e-Cigarette/Vaping Use Never Used 01/08/23 07:32 PHQ-9: PHQ-9 Score PHQ-9: Total score 0 01/08/23 07:32 Depression Screening Interpretation: Negative Thrive Assessment: Date of Thrive Assessment Date Thrive assessed 01/08/23 01/08/23 07:32 Currently or been in a relationship where the following occur: no concerns reported Const General: No confusion Orientation/consciousness: No confusion HENMT Head: Yes normocephalic and Yes atraumatic Ears: external ears normal and TM's normal bilaterally General nose exam: Normal external nose present and Normal nasal mucous membranes and turbinates present Face and sinus: Yes normal facial exam and Yes sinuses nontender Mouth: moist mucous membranes Throat: Yes tonsils normal Eyes Conjunctivae: conjunctivae normal Sclerae: sclerae normal Pupils: Equal, round and reactive pupils present and Pupils normal by confrontation EOM: EOMs intact bilaterally Direct Ophthalmoscopy: normal light reflex Neck Neck: Yes no lymphadenopathy and Yes supple Thyroid: Thyroid normal Chest Chest palpation & inspection: normal inspection of the chest Resp Effort & Inspection: normal respiratory effort Auscultation: clear to auscultation bilaterally, no crackles, no rhonchi and no wheezes Cardio Rate: regular rate Rhythm: regular rhythm Peripheral pulses: radial pulses present and dorsalis pedis present GI Inspection: Yes normal to inspection Palpation (GI): Soft to palpation, nontender and No hepatosplenomegaly present Auscultation: normoactive bowel sounds Skin General skin exam: no rashes or lesions noted Neuro General: No confusion Cranial nerves: Yes Equal, round and reactive pupils present and Yes Normal hearing present Cognition (Neuro): normal cognition Gait exam (Neuro): Normal gait present Motor exam (neuro): 5/5 motor strength present throughout Deep tendon reflexes (DTR's): Right brachioradialis reflex intensity grade: 2+, Left brachioradialis reflex intensity grade: 2+, Right patellar reflex intensity grade: 2+ and Left patellar reflex intensity grade: 2+ Extrem General: No edema Assessment and Plan Assessment & Plan (1) Physical exam, annual: Code(s): Z00.00 - Encounter for general adult medical examination without abnormal findings Plan: Follow up in 1 year (2) Postoperative hypothyroidism: Code(s): E89.0 - Postprocedural hypothyroidism Plan: Continue on levothyroxine 75mcg daily Continue to follow with endocrinology. (3) Hyperparathyroidism: Code(s): E21.3 - Hyperparathyroidism, unspecified (4) Paroxysmal atrial fibrillation: Code(s): I48.0 - Paroxysmal atrial fibrillation Plan: Continue on eliguis 2.5mg id bid for anticougulation and metoprolol 50mg bid for rate control. (5) COPD (chronic obstructive pulmonary disease): Code(s): J44.9 - Chronic obstructive pulmonary disease, unspecified Qualifiers: COPD type: chronic bronchitis Chronic bronchitis type: simple Qualified Code(s): J41.0 - Simple chronic bronchitis Plan: Continue on current inhalers. Plan Follow up in 6 months. Orders: Orders Lipid Panel Today Z13.220 - Encounter for screening for lipoid disorders Coding Level of Care Code Est Pt Prev Care >65y(28160) Diagnoses Physical exam, annual Z00.00 Postoperative hypothyroidism E89.0 Hyperparathyroidism E21.3 Paroxysmal atrial fibrillation I48.0 COPD (chronic obstructive pulmonary disease) J41.0 COPD type: chronic bronchitis Chronic bronchitis type: simple Additional Codes PHQ-9 - 18060 - PHQ-9 Billing: Y ([id number]) NIYAH-7 Assessment Billing - NIYAH-7 Assessment Tool: NIYAH-7 Assessment 29545 ([id number])
== END 2023-01-08 07:51 | disposition home or self-care (01) ==
PROVIDERS: PCP Internal Medicine; Visit Provider Nurse Practitioner Family
DX: Z00.00 Encounter for general adult medical examination without abnormal findings (principal); E21.3 Hyperparathyroidism, unspecified; I48.0 Paroxysmal atrial fibrillation; J41.0 Simple chronic bronchitis; E89.0 Postprocedural hypothyroidism
CPT/HCPCS: 99397

== ENCOUNTER 2023-01-08 07:59 | Outpatient (REF) | payer OTHER, SELFPAY ==
[2023-01-08 10:56] LABS: Alanine Aminotransferase 12 U/L (0-31); Albumin Level 3.5 g/dL (3.5-5.0); Alkaline Phosphatase 72 U/L (39-117); Anion Gap 13 (12-20); Aspartate Amino Transferase 21 U/L (5-31); Bilirubin Total 0.3 mg/dL (0.0-1.0); Blood Urea Nitrogen 17 mg/dL (9-16); Calcium 9.4 mg/dL (8.4-10.2); Carbon Dioxide 23 mmol/L (22-29); Chloride 109 mmol/L (96-108); Cholesterol 239 mg/dL; Estimated Glomerular Filt Rate 46; Glucose Random 74 mg/dL (60-115); HDL Cholesterol 73 mg/dL; LDL Cholesterol Calculated 145 mg/dl; Phosphorus 3.9 mg/dL (2.7-4.5); Potassium 4.3 mmol/L (3.3-5.1); Sodium 141 mmol/L (135-145); Total Protein 7.2 g/dL (6.5-8.0); Triglycerides 106 mg/dL
[2023-01-08 11:04] LABS: Thyroid Stimulating Hormone 2.45 uIU/mL (0.32-4.0); Vitamin D 25-OH Total 41.1 ng/mL (>30)
[2023-01-09 19:38] LABS: Calcium (PTHI) 8.9 mg/dL (8.6-10.4); PTHI 48 pg/mL (16-77)
== END 2023-01-08 08:00 | disposition home or self-care (01) ==
LOC: HO.LAB 07:59
PROVIDERS: Absent Provider Nurse Practitioner Family; PCP Internal Medicine; Visit Provider Internal Medicine
DX: Z13.220 Encounter for screening for lipoid disorders (principal); M81.0 Age-related osteoporosis without current pathological fracture; E55.9 Vitamin D deficiency, unspecified; Z85.850 Personal history of malignant neoplasm of thyroid; Z13.29 Encounter for screening for other suspected endocrine disorder
CPT/HCPCS: 36415; 80053; 80061; 82306; 83970; 84100; 84432; 84439; 84443; 86800

== ENCOUNTER 2023-01-30 07:58 | Outpatient (AMB) | payer OTHER, SELFPAY ==
--- NOTE | 2023-01-30 08:22 | AM.OFFVISNUR ---
Intake Intake Visit Reasons: Prolia Inj Allergies aspirin Allergy (Mild, Verified 01/08/23 07:40) Rash dipyridamole [From Persantine] Allergy (Mild, Verified 01/08/23 07:40) Rash Iodinated Contrast Media [IV Contrast Dye] Allergy (Unknown, Verified 01/08/23 07:40) Unknown Office Meds Prolia Performing Provider: Ann Rojas DO Administered by: Bhavin Dove RN on 01/30/23 08:23 Dose Route Admin Location Lot Number Expiration Date [facility] [employer] 60 mg subcut L arm [id number] 05/31/23 AMGEN Coding Diagnoses Assessment & Plan Assessment & Plan Orders: Orders AMB Denosumab Injection Patient Supplied Today M81.0 - Age-related osteoporosis without current pathological fracture
== END 2023-01-30 08:15 | disposition home or self-care (01) ==
PROVIDERS: PCP Internal Medicine; Visit Provider Internal Medicine
DX: M81.0 Age-related osteoporosis without current pathological fracture (principal)

== ENCOUNTER → 2023-01-30 07:58 | Outpatient (BNVA) | payer OTHER, SELFPAY | PROVIDERS: PCP Internal Medicine; Visit Provider Internal Medicine | DX: M81.0 Age-related osteoporosis without current pathological fracture (principal) | CPT/HCPCS: 96372; J0897 ==

== ENCOUNTER 2023-01-30 09:51 | Outpatient (REF) | payer OTHER, SELFPAY ==
[2023-02-05 15:48] LABS: N-Telopeptide 45 (see note); NTXCreaRU 52 mg/dL (20-275)
== END 2023-01-30 09:52 | disposition home or self-care (01) ==
LOC: HO.LNP 09:51
PROVIDERS: Visit Provider Internal Medicine
DX: M81.0 Age-related osteoporosis without current pathological fracture (principal)
CPT/HCPCS: 82523

== ENCOUNTER 2023-03-10 07:52 | Outpatient (REF) | payer SELFPAY | END 2023-03-10 07:53 | disposition home or self-care (01) | LOC: HO.MAMMO 07:52 | PROVIDERS: PCP Internal Medicine; Visit Provider Internal Medicine | DX: Z13.89 Encounter for screening for other disorder (principal) ==

== ENCOUNTER 2023-07-06 09:50 | Outpatient (AMB) | payer MEDICARE, SELFPAY ==
[2023-07-06 10:06] VITALS: BP 124/70; PULSE 67; O2SAT 95; BMI 21.9
--- NOTE | 2023-07-06 10:06 | MHC.OFFVIS ---
Intake Vital Signs 07/06/23 10:06 Height 4 ft 10 in Weight 105 lb BMI 21.9 BP 124/70 Blood Pressure Location Rt brachial Position Sitting Pulse 67 Pulse Source Pulse Oximeter Pulse Oximetry (%) 95 Oxygen Delivery Method Room Air Intake Visit Reasons: COPD Surgical Dental Assistant Required: No Allergies aspirin Allergy (Mild, Verified 07/06/23 10:09) Rash dipyridamole [From Persantine] Allergy (Mild, Verified 07/06/23 10:09) Rash Iodinated Contrast Media [IV Contrast Dye] Allergy (Unknown, Verified 07/06/23 10:09) Unknown HPI HPI Comments History of Present Illness Details The patient is a 83-year-old woman with a known history of COPD. She was a former smoker. She has been noticing worsening respiratory symptoms with ongoing shortness of breath and cough. She only has a short-acting beta agonist that she uses numerous times a day. Her family becomes concerned because they feel that she is over using her rescue medication. She also has a nebulizer machine although does not have any medicine for. She was admitted last time to [facility]. There she did have a CT scan of the chest demonstrating a spiculated nodular density of concern. She also had emphysematous changes. She did follow-up with thoracic surgery at some point in did have a PET scan ordered. Apparently the PET scan department has been trying to schedule them an appointment and [facility] have not been able to do so. Therefore, we given the numbers for them to call and make arrangements for the PET scan as if this is very important. She already had pulmonary function studies on August and she will be following up with thoracic surgery. She did have a PET scan demonstrating significant FDG activity in the thyroid gland in addition to cervical lymphadenopathy with avid activity. She also had multiple pulmonary nodules some smaller than the accuracy of the PET scan and others for larger with some it activity. Cannot rule out metastatic disease. The patient did have a biopsy of her thyroid gland was positive for malignancy. She will follow-up with her resource paraprofessional about this. She does not know the results. I did talk to her family about it. Explained to them that I am concerned that indeed the findings on the CT scan of the chest and PET scan could all be all related to the thyroid. At this point the patient will be following up with endocrinology and then subsequently Oncology. Will have to follow closely this pulmonary nodules. In the meantime the patient did not start her respiratory inhaler. Will have her start trerely. 01/06/2020 the patient has a telephone visit. Overall she is doing well from a respiratory status. She understands she also has pulmonary nodules over following. She continues use the trelegy inhaler. Has not required a short-acting beta agonist. She understands that will following the nodules but patient has not had her CT scan just yet. Initially she was not leaving the house because of the COVID-19 infections. At this point the patient needs to have her CT scan of the chest to make sure that the nodules are not getting any worse. Specially with a history of thyroid cancer. 04/18/2020 the patient has a telephone visit today. Overall the patient has been doing well. She denies any coughing or weight loss or night sweats. We did review her previous CT scans of the chest demonstrating multiple pulmonary nodules. Also had a PET scan demonstrating some mild FDG activity. We did discuss the imaging studies back in the spring and then again in the summer. The patient had not gotten a repeat CT scan. Partly because of the COVID-19 infections. However, she is finally scheduled to have a CT scan of the chest tomorrow. I did spe ak to her grandson. After the CT scan I will talk to them about the results. If the nodules have gotten bigger will need other concerning findings then went to talk about further interventions. Hopefully that is not the case. 06/25/2020 the patient is here for pulmonary follow-up visit. Overall she is doing better. She has been walking better and she is eating better and she is actually not using a wheelchair for the 1st time in well. She states she is feels better after her thyroid medication was changed. In the meantime will monitoring closely her pulmonary nodules. Her last CT scan of the chest was done recently and was personally by me. She does have a intermediate size pulmonary nodule in the left upper lobe which is concerning in appearance was as subsolid component. She has had a PET scan in the past. Demonstrating mild FDG activity. At this point the nodule has not significantly changed from last year. However, the appearance of it is indeed a little concerning. Therefore we had repeat a CT scan in 6 months. If they area still abnormal or any change in his appearance consider bronchoscopy to at least assess the airways and to potentially perform a diagnostic intervention. In the meantime she is going to continue with current respiratory therapy which appears to be effective for her. 08/12/2021 the patient is here for a pulmonary follow-up visit. Overall the patient has been doing better. Apparently she did get back from [place] and she left her medications there therefore she was without her respiratory medications for a week or more. Her respiratory status became significantly worse and she had to be taken to the hospital. Patient was given prednisone and ultimately she was able to get her Trelegy inhaler. He was also issues with her nebulizer. But apparently she does have a nebulizer available. I will make sure she has the medication available at home to be able to treat herself she develops any significant congestion. In the meantime the patient did have a CT scan of the chest lost over the summer of 2020 demonstrating a 1.5 cm spiculated nodule in addition to other subsolid nodular densities that need follow-up. The CT scan demonstrated stability of the nodular densities. Therefore will plan to repeat the CT scan a year from her last 1 which will be in December 2021. Will follow-up after the CT scan. If the patient develops any worsening symptoms prior to that she is to call the office because we may want to look at does density sooner rather than later if that is the case. She is following closely with Endocrinology. Seems to be doing well in remission from her thyroid cancer. Now has significant osteoporosis therefore needs to be very careful with systemic or even inhaled steroids. Currently she is taking a small dose of inhaled steroids with her Trelegy which will continue in view of her recent exacerbation. 04/30/2022 the patient is here for pulmonary follow-up visit. He has been lost to follow-up. She had a CT scan back in December that was supposed to follow-up then. She does have concerning findings including a 1.5 cm spiculated left upper lobe nodular density as well as the other changes stated previously. The patient is high risk with a history of smoking. We did review her CT scan from December 2021 demonstrating again the 1.5 cm spiculated lesion. With her history although this is not changing go ahead and presented at tumor conference. The patient has continued to use her respiratory therapy. she denies any significant shortness of breath or any worsening cough symptoms. Her appetite is good per the patient. She denies any night sweats or weight loss. 07/06/2023 the patient is here for a pulmonary follow-up visit. The patient overall has been doing well. No significant weight loss or night sweats. Her appetite continues to be well. She continues on the Trelegy inhaler that appears to be affecting beneficial. She also has a rescue inhaler that she is she does not require. She did have a CT scan of the chest back in December 2022 demonstrating a 1.5 spiculated lesion which appears to be concerning in appearance. However, has not really changed in size which is reassuring. Will go ahead and repeat the imaging study at this time based on the concerning appearance. I did talk to the family that if the nodule were to increase in size or worsening in appearance that they can consider a diagnostic intervention. I did talk to the patient as well about it. She seems to be interested in pursuing a diagnostic intervention if the nodule changes or becomes concerning. Currently she is living with her grandson. It appears that she is currently sleeping on a sofa because they only have a 1 bedroom apartment. I think it is reasonable specially if she is part of the least that she gets the room specially with her history of COPD and heart failure that she should have a bed that she can position to provide the most support.. [facility] Medical History (HFpEF) heart failure with preserved ejection fraction Afib Bite from dog CHF (congestive heart failure) CKD (chronic kidney disease) COPD (chronic obstructive pulmonary disease) History of thyroid cancer HLD (hyperlipidemia) HTN (hypertension) Hyperparathyroidism Osteoporosis Paroxysmal atrial fibrillation Postoperative hypothyroidism Pulmonary nodules Vitamin D deficiency Surgical History History of bladder surgery History of parathyroidectomy History of total thyroidectomy Family History Father Hypertension Mother No problems noted. Social History Housing: Apartment Alcohol intake: never Patient Tobacco Use Status: Former Tobacco user Tobacco use type: Cigarette Years Smoked: 40 e-Cigarette/Vaping Use: Never Used Second Hand Smoke Exposure: No service: No Current occupational status: retired and disabled Cognitive needs: No Hearing needs: No Vision needs: Yes Review of Systems Const Denies night sweats ENT Denies change in voice, Denies lip swelling, Denies mouth pain, Reports nasal congestion, Reports nasal discharge and Denies tongue swelling Card Denies chest pain and Reports dyspnea Resp Reports cough, Reports dyspnea and Reports wheezing GI Denies abdominal pain Musc Denies no additional complaints Neuro Denies Neuro-related abnormal movements Psych Denies no additional complaints Malcolm/Lymph Denies easy bleeding and Denies lymphadenopathy Aller/Immun Denies lip swelling, Denies tongue swelling and Reports wheezing Physical Exam Vital Signs: Last Vital Signs Pulse 67 07/06/23 10:06 BP 124/70 07/06/23 10:06 Pulse Ox 95 07/06/23 10:06 Oxygen Delivery Method Room Air 07/06/23 10:06 BMI result Body Mass Index 21.9 Const General: alert Neck Neck: Yes normal visual inspection, Yes full ROM and Yes no lymphadenopathy Chest Chest palpation & inspection: normal inspection of the chest Resp Auscultation: diminished lung sounds Cardio Rate: regular rate Rhythm: regular rhythm Heart sounds: S1 normal heart sound present and S2 normal heart sound present GI Palpation (GI): Soft to palpation and nontender Auscultation: normal bowel sounds Skin General skin exam: rashes and/or lesions noted Immunizations pneumoc 20-aliza conj-dip cr(PF) 0.5 mL IM syringe Performing Provider: Josh Colby MD Performing Location: [facility] Administered by: Josh Colby MD on 07/06/23 12:59 Dose Route Admin Location Dispensed Lot Number Expiration Date [facility] Loaders 0.5 mL IM Right Deltoid 0.5 mL [id number] 07/05/24 4488-0214-28 [employer] VIS Given Date VIS Provided VIS Publication Date 07/06/23 Single Vaccine 21 Eligibility Eligibility Date Funding Source Not [facility] Eligible 07/06/23 Private Assessment & Plan Assessment & Plan (1) History of thyroid cancer: Code(s): Z85.850 - Personal history of malignant neoplasm of thyroid (2) Pulmonary nodules: Comment: MOLLY subsolid nodule. Irregular appearance. 1.5 spiculated nodule MOLLY Code(s): R91.8 - Other nonspecific abnormal finding of lung field Plan: CT scan of the chest to be completed tomorrow. We will discuss the findings after I have a chance to review them. (3) COPD (chronic obstructive pulmonary disease): Code(s): J44.9 - Chronic obstructive pulmonary disease, unspecified Qualifiers: COPD type: chronic bronchitis Chronic bronchitis type: simple Qualified Code(s): J41.0 - Simple chronic bronchitis Plan Continue Trelegy short-acting beta agonist as needed repeat CT chest now nebulized therapy as needed follow-up in 6 months Orders: Orders Pneumococcal 20 Immunization Today R91.8 - Other nonspecific abnormal finding of lung field, Z23 - Encounter for immunization CT chest wo IV con Today R91.8 - Other nonspecific abnormal finding of lung field Coding Level of Care Code Est Pt Level 4 (59155) Diagnoses History of thyroid cancer Z85.850 Pulmonary nodules R91.8 Simple chronic bronchitis J41.0 COPD type: chronic bronchitis Chronic bronchitis type: simple Time Spent (min) 17
== END 2023-07-06 10:30 | disposition home or self-care (01) ==
PROVIDERS: PCP Internal Medicine; Visit Provider Hospitalist
DX: Z85.850 Personal history of malignant neoplasm of thyroid (principal); R91.8 Other nonspecific abnormal finding of lung field; J41.0 Simple chronic bronchitis; Z23 Encounter for immunization
CPT/HCPCS: 99214

== ENCOUNTER → 2023-07-06 09:50 | Outpatient (BNVA) | payer MEDICARE, MEDICAID, SELFPAY | PROVIDERS: PCP Internal Medicine; Visit Provider Hospitalist | DX: J41.0 Simple chronic bronchitis (principal); R91.8 Other nonspecific abnormal finding of lung field; Z85.850 Personal history of malignant neoplasm of thyroid; Z23 Encounter for immunization | CPT/HCPCS: 90471; 90677; 99212 ==

== ENCOUNTER 2023-07-24 10:14 | Outpatient (REF) | payer MEDICARE, MEDICAID, SELFPAY ==
[2023-07-24 11:48] LABS: Free T4 (Free Thyroxine) 1.21 ng/dL (0.71-1.85); Thyroid Stimulating Hormone 1.22 uIU/mL (0.32-4.0)
[2023-07-28 03:44] LABS: Thyroglobulin Antibody <1 IU/mL (<=1); Thyroglobulin Level <0.1 ng/mL
== END 2023-07-24 10:15 | disposition home or self-care (01) ==
LOC: HO.LAB 10:14
PROVIDERS: PCP Internal Medicine; Visit Provider Internal Medicine Endocrinology, Diabetes & Metabolism
DX: Z85.850 Personal history of malignant neoplasm of thyroid (principal)
CPT/HCPCS: 36415; 84432; 84439; 84443; 86800

== ENCOUNTER 2023-07-27 08:18 | Outpatient (AMB) | payer MEDICARE, MEDICAID, SELFPAY ==
[2023-07-27 08:20] VITALS: BP 144/82; PULSE 79; BMI 24.1
--- NOTE | 2023-07-27 08:20 | MHC.OFFVIS ---
Intake Vital Signs 07/27/23 08:20 Height 4 ft 10 in Weight 115 lb 8.356 oz BMI 24.1 BP 144/82 H Blood Pressure Location Lt brachial Position Sitting Pulse 79 Pulse Source Pulse Oximeter Intake Visit Reasons: Thyroid cancer-confirmed Intake Note: Patient presents today for Thyroid Cancer follow up, last seen by Dr. Soto on 01/05/2023. 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 Coordinator Required: No Accompanied by: Grand Child Allergies aspirin Allergy (Mild, Verified 07/27/23 08:25) Rash dipyridamole [From Persantine] Allergy (Mild, Verified 07/27/23 08:25) Rash Iodinated Contrast Media [IV Contrast Dye] Allergy (Unknown, Verified 07/27/23 08:25) Unknown Medication List - Last Reconciled 07/27/23 by Tyler Garcia MD albuterol sulfate 2.5 mg (3 mL) inhalation Q8H PRN albuterol sulfate 90 mcg/actuation 2 inhalations inhalation Q6H PRN 30 days apixaban (Eliquis) 2.5 mg PO BID 90 days calcium citrate-vitamin D3 315 mg-6.25 mcg (250 unit) 2 tabs PO BID 30 days cetirizine (Zyrtec) 10 mg PO DAILY PRN 30 days cholecalciferol (vitamin D3) 50 mcg PO DAILY 30 days denosumab 60 mg subcut [id number] flecainide 50 mg PO Q12H furosemide 20 mg PO DAILY 90 days levothyroxine 75 mcg PO DAILY metoprolol tartrate 50 mg PO BID 90 days mirtazapine 15 mg PO BEDTIME 90 days Trelegy Ellipta 100-62.5-25 mcg ([id number]) 1 ea PO DAILY NS HPI HPI Comments History of Present Illness Details 83 YO Female with an extensive PMHx who is 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 The patient last saw Dr. Soto on 01/05/2023 Of note, she is a very poor historian and the majority of history is gathered from chart review and from her Son in Law. They have been consistently poorly compliant with my recommendations. She was previously followed by Dr. Marquez, but was lost to F/U after 07/13/15. 1) NTMNG: She initially presented to see me due to Severe Osteoporosis and Hyperparathyroidism. I checked an US of the neck to assess for a parathyroid adenoma. This revealed a large 3.5 cm R sided thyroid nodule as well as multiple enlarged R cervical lymph nodes. She subsequently underwent a PET CT due to a pulmonary nodule. This revealed the R sided thyroid nodule to be intensely FDG avid with max SUV 11.6. She was also found to have multiple FDG avid cervical lymph nodes, most notably a 1.6 cm L cervical level 2 lymph node. She had multiple bilateral pulmonary nodules that were FDG avid as well as a bladder lesion. 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 She also underwent FNA biopsy at that time of the L cervical level 2 lymph node with cytology revealing just lymphocytes. Flow cytometry revealed normal appearing lymphocytes. She underwent a total thyroidectomy 11/09/2019 with removal of a hyperplastic L inferior parathyroid as well. Official surgical path revealed 0.1 cm focus of PTC. 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 No lymph nodes were excised. This was staged as [id number]. She was started on Levothyroxine 50 mcg PO daily, which was increased to 75 mcg PO daily. She was confused and began taking the 50 mcg dose again, and labs now show hypothyroidism. She takes this correctly and denies any symptoms of hyper or hypothyroidism. TSH checked 01/12/2020 was 16.38. She also had TG level of 0.6 and TG antibodies negative at that time. Her hospital course was complicated by AFib with RVR. She did have a prolonged hospital course due to this. She subsequently underwent a thyrogen stimulated I-131 whole body scan 02/24/2020. Labs 02/22/2020 with TSH 377, negative TG antibodies, and TG level of 0.3. The scan revealed faint uptake within the neck, as well as an intense focus of uptake within the face to the right of midline corresponding to likely the sphenoid or ethmoid sinus. CT of the head revealed this to be a mucus retention cyst. 2) Osteoporosis and Hyperparathyroidism: She has a known history of severe Osteoporosis, and had been on Fosamax for many years. This was stopped at an unknown date. It does appear she was diagnosed with Primary Hyperparathyroidism years ago, but did not complete her workup and was not referred for surgery. She did have labs completed 03/15/15 with Total Calcium of 10.2, no albumin checked, Ionized Calcium of 5.9, PTH 97 with Vitamin D 40.2. She was lost to F/U and then was referred to Rheumatology for her Osteoporosis. Labs were repeated 11/10/18 with Cr of 0.93, GFR of 58, Total Calcium 10.3 with Albumin 4.0, Vitamin D 42.7. No PTH was assessed. DEXA was checked 12/10/2018 which revealed severe Osteoporosis of the spine with T score of -6.0. Hips were in Osteoporotic range with T score of -3.4. No forearm BMD was checked. She was subsequently referred to Endocrinology. We repeated labs after her initial visit with results 05/04/19 PTH 63, Total Calcium 9.9, Albumin 3.7, Vitamin D 36.3, Ionized Calcium 5.8. Her 24 hour urine calcium and creatnine were WNL, and not consistent with FHH. She was referred for Parathyroidectomy and also underwent this 11/09/2019. She had removal of a L inferior hyperplastic parathyroid gland. Labs checked 01/12/2020 reveal Calcium WNL at 9.0 but PTH remains elevated at 86 with Vitamin D of 28.4. She is taking Vitamin D 1000 IU daily. She did remain on Fosamax, which was prescribed by her PCP. She stopped this as of April 2020. It is unclear if she is using daily prednisone currently, but it does appear she has used prednisone frequently in the past. She is also on full AC with Eliquis due to pAFib. Repeat labs reveal PTH is elevated, with low normal calcium. She presents today to review. She walks throughout the day, but does no scheduled exercise. Fracture history: Denies. Height loss: Does report height loss, but is unable to quantify. HIM CODER history: Menarche was age 15. , she did not breastfeed. She is unsure of when menopause was. History of Kidney stones: Denies. Denies family history of Osteoporosis or hip fracture. She is not UTD on dental cleanings, and has not seen a dentist in many years. I-131 whole body scan 02/24/2020: Imaging shows a focus of increased metabolic activity in the midline of the lower neck just slightly to the left of midline. This could represent some residual thyroid tissue or disease. Also there is a fairly intense focus of increased metabolic activity in the face just to the right of the midline anteriorly. This could be within the maxillary sinus or ethmoid sinus. There is activity demonstrated in the region of the stomach, bowel and bladder which is certainly within normal limits for by a distribution. Impression: Activity in the neck which is likely the result of residual thyroid tissue/disease. Activity in the face which is suspicious for metastatic disease. Correlation with CT with IV contrast would be helpful. DXA dated 12/06/2020: AP SPINE L1-L4: Current: BMD 0.451 g/cm2, Z-score -3.8, T-score -6.1, osteoporosis, 2.8% decrease from previous, 0.2% increase from baseline (<5% change is not significant). Prior: BMD 0.464 g/cm2. Baseline: BMD 0.450 g/cm2. LEFT FEMUR, NECK: Current: BMD 0.586 g/cm2, Z-score -0.8, T-score -3.2, osteoporosis. Prior: BMD 0.591 g/cm2. Baseline: BMD 0.626 g/cm2. LEFT FEMUR, TOTAL: Current: BMD 0.559 g/cm2, Z-score -1.2, T-score -3.6, osteoporosis, 4.0% decrease from previous, 10.6% decrease from baseline (<5% change is not significant). Prior: BMD 0.582 g/cm2. Baseline: BMD 0.625 g/cm2 PET CT 05/12/19: There is intensely increased FDG activity bilaterally in the palatine tonsils, but these appear symmetrically enlarged bilaterally on the CT images. The FDG activity is very homogeneous bilaterally, showing SUV Max 13.8 and a focus in the left side, slice 20/223. Bilateral FDG avid cervical level IIa and IIb lymph nodes are present, and most of these are not enlarged, but the most prominent is a lymph node in the left to a level showing SUV Max 6.2, slice 23/223 corresponding to a lymph node on the CT images that measures 1.6 x 0.9 cm in largest transverse dimensions. There are additional bilateral FDG avid cervical level 3 and 4 lymph nodes present, and all of these appear normal in size. There is almost complete opacification of the right maxillary sinus and a mucosal retention cyst replaces approximately one half the volume of the left maxillary sinus. There is no abnormal FDG activity on the left, the diffuse FDG activity is present of mild intensity in the right maxillary sinus, predominantly peripherally. There is an intensely FDG avid right thyroid nodule, showing SUV Max 11.6, slice 37/223. This corresponds to a hypodense nodule on the CT images that measures 3.3 x 2.9 cm in largest transverse dimensions, and approximately 2.7 cm cephalocaudad. This contains some punctate central calcifications. No other foci of abnormal FDG activity are present in the neck or visualized head. All the other activity in this region appears physiological. THORAX: Multiple pulmonary nodules are present. Most of these are small subcentimeter nodules, there is a dominant nodule which abuts the interlobar fissure in the left upper lobe which is mild FDG activity, SUV Max 2.3, slice 55/292, corresponding to a nodule on the CT images that measures 1.5 x 1.1 cm in largest transverse dimensions. Master Certified Rv Technician of additional small nodules visualized include: A 0.3 cm nodule laterally in the left upper lobe, slice 80/292; a pleural-based 0.5 cm lateral right lower lobe nodule, slice 86/292; a 0.3 cm nodule posteriorly in the left upper lobe abutting the major interlobar fissure, slice 60/292; a 0.3 cm nodule abutting the major interlobar fissure in the right upper lobe, slice 56/292; and to adjacent nodules posteriorly in the right upper lobe measuring 0.8 cm and 0.3 cm in slice 53/292 and an additional 0.3 cm nodule posteriorly in the right upper lobe, slice 51/292. All of these additional nodules are too small to be characterized on the FDG PET images. There is by lateral apical scarring with no associated abnormal FDG activity. There is no pleural or pericardial fluid, or pneumothorax. There is no mediastinal, supraclavicular, or axillary lymphadenopathy. ABDOMEN AND PELVIS: No foci of abnormal FDG activity are present in the abdomen or pelvis. There is mild diffuse FDG activity throughout the gastrointestinal tract without a suspicious focal component. There is diverticulosis without evidence of diverticulitis. The hollow viscera are otherwise unremarkable. The liver and spleen are unremarkable. The gallbladder has been resected and there are metallic surgical clips in the gallbladder bed. There is a hypodense cyst laterally in the mid left kidney, and this is markedly FDG photopenic. The kidneys are otherwise unremarkable. The adrenal glands and pancreas are unremarkable. There is no retroperitoneal, mesenteric, pelvic or inguinal lymphadenopathy. There is some calcified uterine fibroids. There is a possible soft tissue mass measuring 2.0 x 1.8 cm in the posterior bladder wall that is not well delineated on these nondiagnostic CT images and is difficult to evaluate for FDG accumulation because of the intense activity within the bladder due to physiological excreted FDG activity. The pelvic organs are otherwise unremarkable. MUSCULOSKELETAL: No foci of abnormal FDG activity are present in the osseous structures. There is a severe thoracic kyphosis and some degenerative changes are present in the spine but no suspicious sclerotic or lytic lesions are visualized. VASCULAR: Diffuse vascular calcifications including coronary are noted. Labs: Laboratory Tests 11/11/21 11/11/21 12:00 12:00 Albumin 3.9 25-OH Vitamin D To tank 28.2 TSH 2.16 Free T4 1.41 PTH Intact 80 H Calcium (PTH Intac t) 9.4 Laboratory Tests 11/11/21 12:00 Creatinine 1.18 Estimated GFR 44 PFSH Medical History (HFpEF) heart failure with preserved ejection fraction Afib Bite from dog CHF (congestive heart failure) CKD (chronic kidney disease) COPD (chronic obstructive pulmonary disease) History of thyroid cancer HLD (hyperlipidemia) HTN (hypertension) Hyperparathyroidism Osteoporosis Paroxysmal atrial fibrillation Postoperative hypothyroidism Pulmonary nodules Vitamin D deficiency Surgical History History of parathyroidectomy History of total thyroidectomy History of bladder surgery Family History Father Hypertension Mother No problems noted. Social History Housing: Apartment Alcohol intake: never Patient Tobacco Use Status: Former Tobacco user Tobacco use type: Cigarette Years Smoked: 40 e-Cigarette/Vaping Use: Never Used Second Hand Smoke Exposure: No service: No Current occupational status: retired and disabled Cognitive needs: No Hearing needs: No Vision needs: Yes Physical Exam Vital Signs: Last Vital Signs Pulse 79 07/27/23 08:20 BP 144/82 H 07/27/23 08:20 BMI result Body Mass Index 24.1 Const Other: Healed scar status post thyroidectomy. There is no cervical adenopathy palpated Assessment & Plan Assessment & Plan (1) History of thyroid cancer: Code(s): Z85.850 - Personal history of malignant neoplasm of thyroid Plan: This is a 83-year-old female with a history of 0.1 cm focus of PTC. 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 No lymph nodes were excised. This was staged as [id number]. She is currently being replaced on levothyroxine 75 mcg q.d.. She appears to be clinically biochemically euthyroid. Plan is to wait to thyroglobulin level and continue the current dose levothyroxine (2) Osteoporosis: Code(s): M81.0 - Age-related osteoporosis without current pathological fracture Qualifiers: Osteoporosis type: unspecified Presence of current pathological fracture: unspecified Qualified Code(s): M81.0 - Age-related osteoporosis without current pathological fracture Plan: Secondary workup was negative except for hyperparathyroidism status post parathyroidectomy. Patient is currently on calcium, vitamin-D and Prolia q.6 months Will check basic metabolic panel with calcium and then subsequently patient will receive Prolia injection in 1 week's time Orders: Orders Albumin Level Today M81.0 - Age-related osteoporosis without current pathological fracture Basic Metabolic Panel Today M81.0 - Age-related osteoporosis without current pathological fracture Calcium Today M81.0 - Age-related osteoporosis without current pathological fracture Coding Level of Care Code Est Pt Level 3 (72432) Diagnoses History of thyroid cancer Z85.850 Osteoporosis, unspecified osteoporosis type, unspecified pathological fracture presence M81.0 Osteoporosis type: unspecified Presence of current pathological fracture: unspecified
== END 2023-07-27 08:56 | disposition home or self-care (01) ==
PROVIDERS: PCP Internal Medicine; Visit Provider Internal Medicine Endocrinology, Diabetes & Metabolism
DX: Z85.850 Personal history of malignant neoplasm of thyroid (principal); M81.0 Age-related osteoporosis without current pathological fracture
CPT/HCPCS: 99213

== ENCOUNTER 2023-07-27 08:18 | Outpatient (REF) | payer MEDICARE, MEDICAID, SELFPAY ==
[2023-07-27 10:47] LABS: Albumin Level 3.6 g/dL (3.5-5.0); Anion Gap 11 (12-20); Blood Urea Nitrogen 23 mg/dL (9-16); Calcium 9.1 mg/dL (8.4-10.2); Carbon Dioxide 25 mmol/L (22-29); Chloride 109 mmol/L (96-108); Estimated Glomerular Filt Rate 51; Glucose Random 79 mg/dL (60-115); Potassium 4.3 mmol/L (3.3-5.1); Sodium 141 mmol/L (135-145)
== END 2023-07-27 08:19 | disposition home or self-care (01) ==
LOC: HO.LAB 08:18
PROVIDERS: PCP Internal Medicine; Visit Provider Internal Medicine Endocrinology, Diabetes & Metabolism
DX: M81.0 Age-related osteoporosis without current pathological fracture (principal)
CPT/HCPCS: 36415; 80048; 82040; 99212

== ENCOUNTER 2023-07-30 08:32 | Outpatient (AMB) | payer MEDICARE, SELFPAY ==
--- NOTE | 2023-07-30 09:30 | AM.OFFVISNUR ---
Intake Intake Visit Reasons: Prolia Inj Allergies aspirin Allergy (Mild, Verified 07/27/23 08:25) Rash dipyridamole [From Persantine] Allergy (Mild, Verified 07/27/23 08:25) Rash Iodinated Contrast Media [IV Contrast Dye] Allergy (Unknown, Verified 07/27/23 08:25) Unknown Office Meds Prolia 60 mg/mL subcutaneous syringe Performing Provider: Tyler Garcia MD Performing Location: [facility] [place] Endocrinology Administered by: Salma Colby LPN on 07/30/23 09:30 Dose Route Admin Location Dispensed Lot Number Expiration Date ND Sales Support Associate 60 mg subcut Left upper arm 1 mL [id number] 11/28/25 [facility] Coding Assessment & Plan Assessment & Plan Orders: Orders AMB Denosumab Injection Patient Supplied Today M81.0 - Age-related osteoporosis without current pathological fracture
== END 2023-07-30 09:10 | disposition home or self-care (01) ==
PROVIDERS: PCP Internal Medicine; Visit Provider Internal Medicine Endocrinology, Diabetes & Metabolism
DX: M81.0 Age-related osteoporosis without current pathological fracture (principal)

== ENCOUNTER → 2023-07-30 08:32 | Outpatient (BNVA) | payer MEDICARE, MEDICAID, SELFPAY | PROVIDERS: PCP Internal Medicine; Visit Provider Internal Medicine Endocrinology, Diabetes & Metabolism | DX: M81.0 Age-related osteoporosis without current pathological fracture (principal) | CPT/HCPCS: 96372; J0897 ==

== ENCOUNTER 2023-08-18 08:50 | Outpatient (REF) | payer MEDICARE, MEDICAID, SELFPAY ==
--- NOTE | ~2023-08-18 | CT_ITS ---
EXAMINATION: CT CHEST WITHOUT CONTRAST CLINICAL INFORMATION: Follow-up pulmonary nodules. COMPARISON: Prior chest CT examinations, most recently 01/07/2022. TECHNIQUE: Multidetector volumetric CT imaging of the chest was done. Axial MIP volume rendering provided. Sagittal and coronal reformatted images were obtained. This CT examination was performed using dose optimization techniques as appropriate, variously including the following: *Automated exposure control *Adjustment of mA and/or kV according to patient size (this includes techniques or standardized protocols for targeted exams where dose is matched to indication/reason for exam; i.e. extremities or head) *Use of iterative reconstruction technique DLP: 91 mGy-cm FINDINGS: ARMATURE WINDER: There is a marked upper thoracic dextroscoliosis. The lungs are well-expanded and grossly clear. LUNGS: There is biapical pleural and parenchymal scarring. Again, there are scattered groundglass opacities, with an upper lobe predominance. These are relatively stable from 01/07/2022. Multiple bilateral pulmonary solid and groundglass nodules are seen. One of the largest right upper lobe nodules is a 1.0 cm groundglass nodule situated within the posterior segment (7:145). This is increased from a maximal prior diameter of 8 mm on 01/07/2022 (7:126). Within the lateral segment of the right middle lobe, a dominant 5 mm noncalcified nodule is seen (7:326). This has increased from a diameter of 4 mm on 01/07/2022 (7:338). At the medial right base (7:351), a dominant 5 mm noncalcified nodule is seen, new or increased from prior. Within the apicoposterior segment of the left lower lobe, a 1.8 x 1.5 cm spiculated nodule is seen. This is increased from dimensions of 1.7 x 1.2 cm on 01/07/2022 (7:112). There are adjacent spiculated 1.4 cm and 0.7 cm satellite nodules, which are also more prominent than was seen previously. Within the anterior segment of the left upper lobe (7:201), an increased 6 cm groundglass nodule is seen. Within the lateral lingula (7:206), there are adjacent 4 mm and 3 mm subpleural nodules, which remain relatively stable from prior. There is no generalized small airway thickening. The central airways appear patent. MEDIASTINUM: The thyroid gland is not visualized with certainty. There is no thoracic aortic aneurysm. There are mild atherosclerotic calcifications of the great vessel origins and thoracic aorta. No mediastinal or hilar lymphadenopathy is seen. CORONARY ARTERY CALCIFICATION: Mild. PLEURA: There is no pleural effusion. No pleural mass or thickening. AXILLA: No lymphadenopathy. UPPER ABDOMEN: The adrenal glands are unremarkable. Incompletely characterized simple appearing left renal cysts are noted. OSSEOUS STRUCTURES: There is a marked thoracic kyphoscoliosis. There is multi-level thoracic spondylosis, with an appearance suggesting possible DISH (diffuse idiopathic skeletal hyperostosis). No acute or aggressive osseous finding is noted. CT/CT chest wo IV con IMPRESSION: 1. Multiple pulmonary nodules are redemonstrated, the most concerning an increased 1.8 cm spiculated nodule in the apicoposterior segment of the left lower lobe. There are further bilateral solid and groundglass nodules, which also show mild interim increase. These could be more fully evaluated with PET/CT, if clinically indicated. 2. There are persistent bilateral upper lobe groundglass opacities, which are likely infectious or inflammatory in etiology. Recommend clinical correlation and continued attention on imaging follow-up. 3. No thoracic lymphadenopathy or pleural effusion is seen. 4. 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 There is a marked thoracic kyphoscoliosis. No acute or aggressive osseous finding is seen.
== END 2023-08-18 08:51 | disposition home or self-care (01) ==
LOC: HO.CT 08:50
PROVIDERS: PCP Internal Medicine; Visit Provider Hospitalist
DX: R91.8 Other nonspecific abnormal finding of lung field (principal)
CPT/HCPCS: 71250

== ENCOUNTER 2023-10-20 15:01 | Outpatient (AMB) | payer MEDICARE, MEDICAID, SELFPAY ==
--- NOTE | 2023-10-20 15:04 | MHC.PC.OV ---
Vital Signs 10/20/23 15:06 Height 4 ft 10 in Weight 116 lb 8 oz BMI 24.3 BP 132/80 Blood Pressure Location Lt brachial Position Sitting Pulse 64 Pulse Source Pulse Oximeter Pulse Oximetry (%) 94 Oxygen Delivery Method Room Air Intake Visit Reasons: Med visit Intake Note: Patient is here to follow up on Med review. Relationship Manager Required: Yes Relationship Manager Language: Oil Gas And Pipe Tester Name: Dominick (miesha) Information Interpreted: non-clinical & clinical Wine Steward: Present Accompanied by: sundeep hayden Allergies aspirin Allergy (Mild, Verified 10/20/23 15:06) Rash dipyridamole [From Persantine] Allergy (Mild, Verified 10/20/23 15:06) Rash Iodinated Contrast Media [IV Contrast Dye] Allergy (Unknown, Verified 10/20/23 15:06) Unknown Tobacco use date assessed: 10/20/23 Fall risk assessment: No Falls in past year Last assessed Fall Risk: 10/20/23 Dental Screening Dental Screen Date: 10/20/23 Did you have a dental visit in the last 12 months?: No Did you have a dental problem in the last 6 months where you did not have access to dental care?: No Was dental information given to patient?: No HPI Med visit HPI Details 83-year-old female presents to the office to discuss her medical condition. I am filling in for her provider who has not available today. She is accompanied on this visit by her son, son-in-law. Son-in-law is translating. Patient is compliant with medications and reporting no side effects. She needs assistance with bathing but able to dress on her own. She is not demonstrating any symptoms of confusion, has good appetite. Poor sleep habits. Able to talk on the phone and maintain conversations. [facility] Medical History (HFpEF) heart failure with preserved ejection fraction Afib Bite from dog CHF (congestive heart failure) CKD (chronic kidney disease) COPD (chronic obstructive pulmonary disease) History of thyroid cancer HLD (hyperlipidemia) HTN (hypertension) Hyperparathyroidism Osteoporosis Paroxysmal atrial fibrillation Postoperative hypothyroidism Pulmonary nodules Vitamin D deficiency Surgical History History of parathyroidectomy History of total thyroidectomy History of bladder surgery Family History Father Hypertension Mother No problems noted. Social History Housing: Apartment Alcohol intake: never Patient Tobacco Use Status: Former Tobacco user Tobacco use type: Cigarette Years Smoked: 40 e-Cigarette/Vaping Use: Never Used Second Hand Smoke Exposure: No service: No Current occupational status: retired and disabled Cognitive needs: No Hearing needs: No Vision needs: Yes Questionnaire PHQ-9 Over the last 2 weeks, how often have you been bothered by any of the following problems? 1. Little interest or pleasure in doing things: not at all 2. Feeling down, depressed, or hopeless: not at all 3. Trouble falling or staying asleep, or sleeping too much: not at all 4. Feeling tired or having little energy: not at all 5. Poor appetite or overeating: not at all 6. Feeling bad about yourself - or that you are a failure or have let yourself or your family down: not at all 7. Trouble concentrating on things, such as reading the newspaper or watching television: not at all 8. Moving or speaking so slowly that other people could have noticed. Or the opposite - being so fidgety or restless that you have been moving around a lot more than usual: not at all 9. Thoughts that you would be better off or of hurting yourself in some way: not at all Total score: 0 Depression Screening Interpretation: Negative Depression Screening Done: Yes Source: Developed by Drs. Tyler Dash, Germaine Núñez, Jean Paul Lopez and colleagues, with an educational stephanie from [employer]. Thrive Questionnaire Date Thrive assessed: 10/20/23 I am a: Patient What is your living situation today?: I have a steady place to live Within the past 12 months, did the food you bought not last and you didn't have the money to get more?: Never true Within the past 12 months, did you worry whether your food would run out before you got money to buy more?: Never true Do you have trouble paying for medicines?: No Do you have trouble getting transportation to medical appointments?: No Do you have trouble paying your heating and electricity bill?: No Do you have trouble taking care of your child, family member or friend?: No Do you have trouble with day-to-day activities such as bathing, preparing meals, shopping, managing finances, etc.?: No Are you currently unemployed and looking for a job?: No Are you interested in more education?: No Currently or been in a relationship where the following occur: no concerns reported THRIVE Score: 0 AUDIT C Alcohol Use Questionnaire (AUDIT-C) 1. How often do you have a drink containing alcohol?: Never Total Score: 0 NIYAH-7 AMB Questionnaire NIYAH-7 Date NIYAH - 7 assessed: 10/20/23 Feeling nervous, anxious, or on edge: 0 = Not at all Not being able to stop or control worryin = Not at all Worrying too much about different things: 0 = Not at all Trouble relaxin = Not at all Being so restless that it is hard to sit still: 0 = Not at all Becoming easily annoyed or irritable: 0 = Not at all Feeling afraid as if something awful might happen: 0 = Not at all Total NIYAH-7 score (0-4 normal; 5-9 mild; 10-14 moderate; 15-21 severe): 0 Source: Developed by Drs. Tyler Dash, Germaine Núñez, Jean Paul Lopez and colleagues, with an educational stephanie from [employer]. Physical exam (Primary Care) Vital Signs: Last Vital Signs Pulse 64 10/20/23 15:06 BP 132/80 10/20/23 15:06 Pulse Ox 94 10/20/23 15:06 Oxygen Delivery Method Room Air 10/20/23 15:06 BMI result Body Mass Index 24.3 Tobacco/Smoking Status: Tobacco use Status Tobacco use date assessed 10/20/23 10/20/23 15:16 Patient Tobacco Use Status Former Tobacco user 10/20/23 15:16 Tobacco use type Cigarette 10/20/23 15:16 e-Cigarette/Vaping Use Never Used 10/20/23 15:16 PHQ-9: PHQ-9 Score PHQ-9: Total score 0 10/20/23 15:16 Depression Screening Interpretation: Negative Thrive Assessment: Date of Thrive Assessment Date Thrive assessed 10/20/23 10/20/23 15:16 Currently or been in a relationship where the following occur: no concerns reported Const General: cooperative and healthy appearing Nutritional Appearance: well nourished Orientation/consciousness: patient oriented x3 Limitations: no limitations HENMT Head: Yes normal to inspection Eyes General: appearance normal, both eyes and all related structures Neck Neck: Yes normal visual inspection Chest Chest palpation & inspection: normal palpation of entire chest wall Resp Effort & Inspection: normal respiratory effort Back/Spine/Pelvis Other: Kyphosis Neuro General: patient oriented x3 Assessment and Plan Assessment & Plan (1) COPD (chronic obstructive pulmonary disease): Code(s): J44.9 - Chronic obstructive pulmonary disease, unspecified Qualifiers: COPD type: chronic bronchitis Chronic bronchitis type: simple Qualified Code(s): J41.0 - Simple chronic bronchitis Plan: Condition is stable. Continue current medications. (2) Paroxysmal atrial fibrillation: Code(s): I48.0 - Paroxysmal atrial fibrillation Plan: Continue current medications. Orders: Orders Thyroid Stimulating Hormone Today I50.30 - Unspecified diastolic (congestive) heart failure, M81.0 - Age-related osteoporosis without current pathological fracture Basic Metabolic Panel Today I50.30 - Unspecified diastolic (congestive) heart failure, M81.0 - Age-related osteoporosis without current pathological fracture Complete Blood Count no Diff Today I50.30 - Unspecified diastolic (congestive) heart failure, M81.0 - Age-related osteoporosis without current pathological fracture Lipid Panel Today I50.30 - Unspecified diastolic (congestive) heart failure, M81.0 - Age-related osteoporosis without current pathological fracture Liver Panel Today I50.30 - Unspecified diastolic (congestive) heart failure, M81.0 - Age-related osteoporosis without current pathological fracture UA and rflx microscopic Today I50.30 - Unspecified diastolic (congestive) heart failure, M81.0 - Age-related osteoporosis without current pathological fracture Medications: Refilled metoprolol tartrate 50 mg PO BID 90 days 180 tabs 1RF levothyroxine 75 mcg PO DAILY 30 tabs 3RF E21.3 - Hyperparathyroidism, unspecified albuterol sulfate 2.5 mg (3 mL) inhalation Q8H PRN 180 mL 0RF for wheezing J41.0 - Simple chronic bronchitis mirtazapine 15 mg PO BEDTIME 90 days 90 tabs 0RF denosumab 60 mg subcut [id number] 1 mL 2RF cholecalciferol (vitamin D3) 50 mcg PO DAILY 30 days 30 caps 11RF calcium citrate-vitamin D3 315 mg-6.25 mcg (250 unit) 2 tabs PO BID 30 days 120 tabs 11RF apixaban (Eliquis) 2.5 mg PO BID 90 days 180 tabs 3RF Coding Level of Care Code Est Pt Level 4 (20909) Diagnoses Simple chronic bronchitis J41.0 COPD type: chronic bronchitis Chronic bronchitis type: simple Paroxysmal atrial fibrillation I48.0
[2023-10-20 15:06] VITALS: BP 132/80; PULSE 64; O2SAT 94; BMI 24.3
== END 2023-10-20 15:48 | disposition home or self-care (01) ==
PROVIDERS: PCP Internal Medicine; Visit Provider Internal Medicine
DX: J41.0 Simple chronic bronchitis (principal); I48.0 Paroxysmal atrial fibrillation
CPT/HCPCS: 99214

== ENCOUNTER 2024-01-20 09:19 | Outpatient (REF) | payer MEDICARE, MEDICAID, SELFPAY ==
[2024-01-20 12:42] LABS: Albumin Level 3.8 g/dL (3.5-5.0); Anion Gap 13 (12-20); Blood Urea Nitrogen 22 mg/dL (9-16); Calcium 9.6 mg/dL (8.4-10.2); Carbon Dioxide 26 mmol/L (22-29); Chloride 107 mmol/L (96-108); Estimated Glomerular Filt Rate 54; Glucose Random 82 mg/dL (60-115); Potassium 4.2 mmol/L (3.3-5.1); Sodium 142 mmol/L (135-145)
== END 2024-01-20 09:20 | disposition home or self-care (01) ==
LOC: HO.LAB 09:19
PROVIDERS: PCP Internal Medicine; Visit Provider Internal Medicine Endocrinology, Diabetes & Metabolism
DX: M81.0 Age-related osteoporosis without current pathological fracture (principal)
CPT/HCPCS: 36415; 80048; 82040

== ENCOUNTER 2024-01-28 15:13 | Outpatient (AMB) | payer MEDICARE, MEDICAID, SELFPAY ==
[2024-01-28 15:19] VITALS: BP 122/68; PULSE 72; BMI 25.8
--- NOTE | 2024-01-28 15:19 | A.OFFVIS_ITS ---
Vital Signs 01/28/24 15:19 Height 4 ft 10 in Weight 123 lb 7.342 oz BMI 25.8 BP 122/68 Blood Pressure Location Rt brachial Position Sitting Pulse 72 Pulse Source Pulse Oximeter Intake Visit Reasons: f/u thyroid cancer/ osteoporosis Intake Note: Patient presents today for a follow-up on Thyroid Cancer & Osteoporosis: Sawmill Hand Required: Yes Sawmill Hand Language: Sound Effects Supervisor Services: Sawmill Hand Present Sawmill Hand Name: LANIE Bland/SAMMIE Orozco Accompanied by: Grand Child Allergies aspirin Allergy (Mild, Verified 10/20/23 15:06) Rash dipyridamole [From Persantine] Allergy (Mild, Verified 10/20/23 15:06) Rash Iodinated Contrast Media [IV Contrast Dye] Allergy (Unknown, Verified 10/20/23 15:06) Unknown Medication List - Last Reconciled 01/28/24 by Tyler Garcia MD albuterol sulfate 2.5 mg (3 mL) inhalation Q8H PRN albuterol sulfate 90 mcg/actuation 2 inhalations inhalation Q6H PRN 30 days apixaban (Eliquis) 2.5 mg PO BID 90 days calcium citrate-vitamin D3 315 mg-6.25 mcg (250 unit) 2 tabs PO BID 30 days cholecalciferol (vitamin D3) 50 mcg PO DAILY 30 days denosumab 60 mg subcut [id number] 100-62.5-25 mcg (Trelegy Ellipta) 1 ea PO DAILY furosemide 20 mg PO DAILY 90 days levothyroxine 75 mcg PO DAILY metoprolol tartrate 50 mg PO BID 90 days mirtazapine 15 mg PO BEDTIME 90 days HPI Comments Details: 83 YO Female with an extensive PMHx who is 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 Of note, she is a very poor historian and the majority of history is gathered from chart review and from her Son in Law. They have been consistently poorly compliant with my recommendations. She was previously followed by Dr. Marquez, but was lost to F/U after 07/13/15. 1) NTMNG: She initially presented to see me due to Severe Osteoporosis and Hyperparathyroidism. I checked an US of the neck to assess for a parathyroid adenoma. This revealed a large 3.5 cm R sided thyroid nodule as well as multiple enlarged R cervical lymph nodes. She subsequently underwent a PET CT due to a pulmonary nodule. This revealed the R sided thyroid nodule to be intensely FDG avid with max SUV 11.6. She was also found to have multiple FDG avid cervical lymph nodes, most notably a 1.6 cm L cervical level 2 lymph node. She had multiple bilateral pulmonary nodules that were FDG avid as well as a bladder lesion. 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 She also underwent FNA biopsy at that time of the L cervical level 2 lymph node with cytology revealing just lymphocytes. Flow cytometry revealed normal appearing lymphocytes. She underwent a total thyroidectomy 11/09/2019 with removal of a hyperplastic L inferior parathyroid as well. Official surgical path revealed 0.1 cm focus of PTC. 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 No lymph nodes were excised. This was staged as [id number]. She was started on Levothyroxine 50 mcg PO daily, which was increased to 75 mcg PO daily. She was confused and began taking the 50 mcg dose again, and labs now show hypothyroidism. She takes this correctly and denies any symptoms of hyper or hypothyroidism. TSH checked 01/12/2020 was 16.38. She also had TG level of 0.6 and TG antibodies negative at that time. Her hospital course was complicated by AFib with RVR. She did have a prolonged hospital course due to this. She subsequently underwent a thyrogen stimulated I-131 whole body scan 02/24/2020. Labs 02/22/2020 with TSH 377, negative TG antibodies, and TG level of 0.3. The scan revealed faint uptake within the neck, as well as an intense focus of uptake within the face to the right of midline corresponding to likely the sphenoid or ethmoid sinus. CT of the head revealed this to be a mucus retention cyst. 2) Osteoporosis and Hyperparathyroidism: She has a known history of severe Osteoporosis, and had been on Fosamax for many years. This was stopped at an unknown date. It does appear she was diagnosed with Primary Hyperparathyroidism years ago, but did not complete her workup and was not referred for surgery. She did have labs completed 03/15/15 with Total Calcium of 10.2, no albumin checked, Ionized Calcium of 5.9, PTH 97 with Vitamin D 40.2. She was lost to F/U and then was referred to Rheumatology for her Osteoporosis. Labs were repeated 11/10/18 with Cr of 0.93, GFR of 58, Total Calcium 10.3 with Albumin 4.0, Vitamin D 42.7. No PTH was assessed. DEXA was checked 12/10/2018 which revealed severe Osteoporosis of the spine with T score of -6.0. Hips were in Osteoporotic range with T score of -3.4. No forearm BMD was checked. She was subsequently referred to Endocrinology. We repeated labs after her initial visit with results 05/04/19 PTH 63, Total Calcium 9.9, Albumin 3.7, Vitamin D 36.3, Ionized Calcium 5.8. Her 24 hour urine calcium and creatnine were WNL, and not consistent with FHH. She was referred for Parathyroidectomy and also underwent this 11/09/2019. She had removal of a L inferior hyperplastic parathyroid gland. Labs checked 01/12/2020 reveal Calcium WNL at 9.0 but PTH remains elevated at 86 with Vitamin D of 28.4. She is taking Vitamin D 1000 IU daily. She did remain on Fosamax, which was prescribed by her PCP. She stopped this as of April 2020. It is unclear if she is using daily prednisone currently, but it does appear she has used prednisone frequently in the past. She is also on full AC with Eliquis due to pAFib. Repeat labs reveal PTH is elevated, with low normal calcium. She presents today to review. She walks throughout the day, but does no scheduled exercise. Fracture history: Denies. Height loss: Does report height loss, but is unable to quantify. SBA UNDERWRITER history: Menarche was age 15. , she did not breastfeed. She is unsure of when menopause was. History of Kidney stones: Denies. Denies family history of Osteoporosis or hip fracture. She is not UTD on dental cleanings, and has not seen a dentist in many years. I-131 whole body scan 02/24/2020: Imaging shows a focus of increased metabolic activity in the midline of the lower neck just slightly to the left of midline. This could represent some residual thyroid tissue or disease. Also there is a fairly intense focus of increased metabolic activity in the face just to the right of the midline anteriorly. This could be within the maxillary sinus or ethmoid sinus. There is activity demonstrated in the region of the stomach, bowel and bladder which is certainly within normal limits for by a distribution. Impression: Activity in the neck which is likely the result of residual thyroid tissue/disease. Activity in the face which is suspicious for metastatic disease. Correlation with CT with IV contrast would be helpful. DXA dated 12/06/2020: AP SPINE L1-L4: Current: BMD 0.451 g/cm2, Z-score -3.8, T-score -6.1, osteoporosis, 2.8% decrease from previous, 0.2% increase from baseline (<5% change is not significant). Prior: BMD 0.464 g/cm2. Baseline: BMD 0.450 g/cm2. LEFT FEMUR, NECK: Current: BMD 0.586 g/cm2, Z-score -0.8, T-score -3.2, osteoporosis. Prior: BMD 0.591 g/cm2. Baseline: BMD 0.626 g/cm2. LEFT FEMUR, TOTAL: Current: BMD 0.559 g/cm2, Z-score -1.2, T-score -3.6, osteoporosis, 4.0% decrease from previous, 10.6% decrease from baseline (<5% change is not significant). Prior: BMD 0.582 g/cm2. Baseline: BMD 0.625 g/cm2 PET CT 05/12/19: There is intensely increased FDG activity bilaterally in the palatine tonsils, but these appear symmetrically enlarged bilaterally on the CT images. The FDG activity is very homogeneous bilaterally, showing SUV Max 13.8 and a focus in the left side, slice 20/223. Bilateral FDG avid cervical level IIa and IIb lymph nodes are present, and most of these are not enlarged, but the most prominent is a lymph node in the left to a level showing SUV Max 6.2, slice 23/223 corresponding to a lymph node on the CT images that measures 1.6 x 0.9 cm in largest transverse dimensions. There are additional bilateral FDG avid cervical level 3 and 4 lymph nodes present, and all of these appear normal in size. There is almost complete opacification of the right maxillary sinus and a mucosal retention cyst replaces approximately one half the volume of the left maxillary sinus. There is no abnormal FDG activity on the left, the diffuse FDG activity is present of mild intensity in the right maxillary sinus, predominantly peripherally. There is an intensely FDG avid right thyroid nodule, showing SUV Max 11.6, slice 37/223. This corresponds to a hypodense nodule on the CT images that measures 3.3 x 2.9 cm in largest transverse dimensions, and approximately 2.7 cm cephalocaudad. This contains some punctate central calcifications. No other foci of abnormal FDG activity are present in the neck or visualized head. All the other activity in this region appears physiological. THORAX: Multiple pulmonary nodules are present. Most of these are small subcentimeter nodules, there is a dominant nodule which abuts the interlobar fissure in the left upper lobe which is mild FDG activity, SUV Max 2.3, slice 55/292, corresponding to a nodule on the CT images that measures 1.5 x 1.1 cm in largest transverse dimensions. Emotional Support Teacher of additional small nodules visualized include: A 0.3 cm nodule laterally in the left upper lobe, slice 80/292; a pleural-based 0.5 cm lateral right lower lobe nodule, slice 86/292; a 0.3 cm nodule posteriorly in the left upper lobe abutting the major interlobar fissure, slice 60/292; a 0.3 cm nodule abutting the major interlobar fissure in the right upper lobe, slice 56/292; and to adjacent nodules posteriorly in the right upper lobe measuring 0.8 cm and 0.3 cm in slice 53/292 and an additional 0.3 cm nodule posteriorly in the right upper lobe, slice 51/292. All of these additional nodules are too small to be characterized on the FDG PET images. There is by lateral apical scarring with no associated abnormal FDG activity. There is no pleural or pericardial fluid, or pneumothorax. There is no mediastinal, supraclavicular, or axillary lymphadenopathy. ABDOMEN AND PELVIS: No foci of abnormal FDG activity are present in the abdomen or pelvis. There is mild diffuse FDG activity throughout the gastrointestinal tract without a suspicious focal component. There is diverticulosis without evidence of diverticulitis. The hollow viscera are otherwise unremarkable. The liver and spleen are unremarkable. The gallbladder has been resected and there are metallic surgical clips in the gallbladder bed. There is a hypodense cyst laterally in the mid left kidney, and this is markedly FDG photopenic. The kidneys are otherwise unremarkable. The adrenal glands and pancreas are unremarkable. There is no retroperitoneal, mesenteric, pelvic or inguinal lymphadenopathy. There is some calcified uterine fibroids. There is a possible soft tissue mass measuring 2.0 x 1.8 cm in the posterior bladder wall that is not well delineated on these nondiagnostic CT images and is difficult to evaluate for FDG accumulation because of the intense activity within the bladder due to physiological excreted FDG activity. The pelvic organs are otherwise unremarkable. MUSCULOSKELETAL: No foci of abnormal FDG activity are present in the osseous structures. There is a severe thoracic kyphosis and some degenerative changes are present in the spine but no suspicious sclerotic or lytic lesions are visualized. VASCULAR: Diffuse vascular calcifications including coronary are noted. Labs: Laboratory Tests 11/11/21 11/11/21 12:00 12:00 Albumin 3.9 25-OH Vitamin D Total 28.2 TSH 2.16 Free T4 1.41 PTH Intact 80 H Calcium (PTH Intact) 9.4 Laboratory Tests 11/11/21 12:00 Creatinine 1.18 Estimated GFR 44 Currently due for Prolia injection osteoporosis today . On Prolia X 2 yrs as well as calcium and vitamin D. No fx . On 75 ug of levothyroxine [facility] Medical History (HFpEF) heart failure with preserved ejection fraction Afib Bite from dog CHF (congestive heart failure) CKD (chronic kidney disease) COPD (chronic obstructive pulmonary disease) History of thyroid cancer HLD (hyperlipidemia) HTN (hypertension) Hyperparathyroidism Osteoporosis Paroxysmal atrial fibrillation Postoperative hypothyroidism Pulmonary nodules Vitamin D deficiency Surgical History History of parathyroidectomy History of total thyroidectomy History of bladder surgery Family History Father Hypertension Mother No problems noted. Social History Housing: Apartment Alcohol intake: never Patient Tobacco Use Status: Former Tobacco user Tobacco use type: Cigarette Years Smoked: 40 e-Cigarette/Vaping Use: Never Used Second Hand Smoke Exposure: No service: No Current occupational status: retired and disabled Cognitive needs: No Hearing needs: No Vision needs: Yes Physical Exam Vital Signs: Last Vital Signs Pulse 72 01/28/24 15:19 BP 122/68 01/28/24 15:19 BMI result Body Mass Index 25.8 Const Other: Healed scar status post thyroidectomy. There is no cervical adenopathy palpated Office Meds Prolia 60 mg/mL subcutaneous syringe Performing Provider: Tyler Garcia MD Performing Location: [facility] [place] Endocrinology Administered by: Myah Stiles RN on 01/28/24 15:29 Dose Route Admin Location Dispensed Lot Number Expiration Date NDC Accountant Helper 60 mg subcut right upper arm 1 mL [id number] 04/30/26 76764-967-10 [employer] Comments: Interpreted by Minor Steele LMT. Consent form signed. Pt tolerated injection well. No problems with previous injections. Assessment & Plan Assessment & Plan (1) History of thyroid cancer: Code(s): Z85.850 - Personal history of malignant neoplasm of thyroid Category: Medical Plan: This is a 83-year-old female with a history of 0.1 cm focus of PTC. 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 No lymph nodes were excised. This was staged as [id number]. She is currently being replaced on levothyroxine 75 mcg q.d.. She appears to be clinically euthyroid.. Thyroglobulins undetectable Plan is to check TSH and free T4 adjust levothyroxine accordingly (2) Osteoporosis: Code(s): M81.0 - Age-related osteoporosis without current pathological fracture Category: Medical Qualifiers: Osteoporosis type: unspecified Presence of current pathological fracture: unspecified Qualified Code(s): M81.0 - Age-related osteoporosis wit hout current pathological fracture Plan: Secondary workup was negative except for hyperparathyroidism status post parathyroidectomy. Patient is currently on calcium, vitamin-D and Prolia q.6 months Plan is to administer the Prolia today Orders: Orders AMB Denosumab Injection Practice Supplied Today M81.0 - Age-related osteoporosis without current pathological fracture Coding Level of Care Code Est Pt Level 3 (91568) Diagnoses History of thyroid cancer Z85.850 Osteoporosis, unspecified osteoporosis type, unspecified pathological fracture presence M81.0 Osteoporosis type: unspecified Presence of current pathological fracture: unspecified
== END 2024-01-28 15:33 | disposition home or self-care (01) ==
PROVIDERS: PCP Internal Medicine; Visit Provider Internal Medicine Endocrinology, Diabetes & Metabolism
DX: Z85.850 Personal history of malignant neoplasm of thyroid (principal); M81.0 Age-related osteoporosis without current pathological fracture
CPT/HCPCS: 99213

== ENCOUNTER → 2024-01-28 15:13 | Outpatient (BNVA) | payer MEDICARE, MEDICAID, SELFPAY | PROVIDERS: PCP Internal Medicine; Visit Provider Internal Medicine Endocrinology, Diabetes & Metabolism | DX: M81.0 Age-related osteoporosis without current pathological fracture (principal); Z85.850 Personal history of malignant neoplasm of thyroid; Z79.899 Other long term (current) drug therapy | CPT/HCPCS: 96372; 99212; J0897 ==

== ENCOUNTER 2024-04-12 10:00 | Outpatient (AMB) | payer MEDICARE, MEDICAID, SELFPAY ==
[2024-04-12 10:03] VITALS: BP 120/66; PULSE 75; O2SAT 97; BMI 25.8
--- NOTE | 2024-04-12 10:03 | MHC.OFFVIS ---
Vital Signs 04/12/24 10:03 Height 4 ft 10 in Weight 123 lb 7.342 oz BMI 25.8 BP 120/66 Blood Pressure Location Lt brachial Position Sitting Pulse 75 Pulse Source Pulse Oximeter Pulse Oximetry (%) 97 Oxygen Delivery Method Room Air Intake Visit Reasons: copd Steel Analyst: Steel Analyst offered & declined Allergies aspirin Allergy (Mild, Verified 04/12/24 10:10) Rash dipyridamole [From Persantine] Allergy (Mild, Verified 04/12/24 10:10) Rash Iodinated Contrast Media [IV Contrast Dye] Allergy (Unknown, Verified 04/12/24 10:10) Unknown Medication List - Last Reconciled 04/12/24 by Ann Maldonado LPN albuterol sulfate 2.5 mg (3 mL) inhalation Q8H PRN albuterol sulfate 90 mcg/actuation 2 inhalations inhalation Q6H PRN 30 days apixaban (Eliquis) 2.5 mg PO BID 90 days calcium citrate-vitamin D3 315 mg-6.25 mcg (250 unit) 2 tabs PO BID 30 days cholecalciferol (vitamin D3) 50 mcg PO DAILY 30 days denosumab 60 mg subcut [id number] ghtbepywxfx-xgxgiklga-foohmcaf 100-62.5-25 mcg (Trelegy Ellipta) 1 ea PO DAILY furosemide 20 mg PO DAILY 90 days levothyroxine 75 mcg PO DAILY metoprolol tartrate 50 mg PO BID 90 days mirtazapine 15 mg PO BEDTIME 90 days HPI Comments Details: The patient is a 83-year-old woman with a known history of COPD. She was a former smoker. She has been noticing worsening respiratory symptoms with ongoing shortness of breath and cough. She only has a short-acting beta agonist that she uses numerous times a day. Her family becomes concerned because they feel that she is over using her rescue medication. She also has a nebulizer machine although does not have any medicine for. She was admitted last time to [facility]. There she did have a CT scan of the chest demonstrating a spiculated nodular density of concern. She also had emphysematous changes. She did follow-up with thoracic surgery at some point in did have a PET scan ordered. Apparently the PET scan department has been trying to schedule them an appointment and [facility] have not been able to do so. Therefore, we given the numbers for them to call and make arrangements for the PET scan as if this is very important. She already had pulmonary function studies on August and she will be following up with thoracic surgery. She did have a PET scan demonstrating significant FDG activity in the thyroid gland in addition to cervical lymphadenopathy with avid activity. She also had multiple pulmonary nodules some smaller than the accuracy of the PET scan and others for larger with some it activity. Cannot rule out metastatic disease. The patient did have a biopsy of her thyroid gland was positive for malignancy. She will follow-up with her quality cloth tester about this. She does not know the results. I did talk to her family about it. Explained to them that I am concerned that indeed the findings on the CT scan of the chest and PET scan could all be all related to the thyroid. At this point the patient will be following up with endocrinology and then subsequently Oncology. Will have to follow closely this pulmonary nodules. In the meantime the patient did not start her respiratory inhaler. Will have her start trerely. 01/06/2020 the patient has a telephone visit. Overall she is doing well from a respiratory status. She understands she also has pulmonary nodules over following. She continues use the trelegy inhaler. Has not required a short-acting beta agonist. She understands that will following the nodules but patient has not had her CT scan just yet. Initially she was not leaving the house because of the COVID-19 infections. At this point the patient needs to have her CT scan of the chest to make sure that the nodules are not getting any worse. Specially with a history of thyroid cancer. 04/18/2020 the patient has a telephone visit today. Overall the patient has been doing well. She denies any coughing or weight loss or night sweats. We did review her previous CT scans of the chest demonstrating multiple pulmonary nodules. Also had a PET scan demonstrating some mild FDG activity. We did discuss the imaging studies back in the spring and then again in the summer. The patient had not gotten a repeat CT scan. Partly because of the COVID-19 infections. However, she is finally scheduled to have a CT scan of the chest tomorrow. I did spe ak to her grandson. After the CT scan I will talk to them about the results. If the nodules have gotten bigger will need other concerning findings then went to talk about further interventions. Hopefully that is not the case. 06/25/2020 the patient is here for pulmonary follow-up visit. Overall she is doing better. She has been walking better and she is eating better and she is actually not using a wheelchair for the 1st time in well. She states she is feels better after her thyroid medication was changed. In the meantime will monitoring closely her pulmonary nodules. Her last CT scan of the chest was done recently and was personally by me. She does have a intermediate size pulmonary nodule in the left upper lobe which is concerning in appearance was as subsolid component. She has had a PET scan in the past. Demonstrating mild FDG activity. At this point the nodule has not significantly changed from last year. However, the appearance of it is indeed a little concerning. Therefore we had repeat a CT scan in 6 months. If they area still abnormal or any change in his appearance consider bronchoscopy to at least assess the airways and to potentially perform a diagnostic intervention. In the meantime she is going to continue with current respiratory therapy which appears to be effective for her. 08/12/2021 the patient is here for a pulmonary follow-up visit. Overall the patient has been doing better. Apparently she did get back from [place] and she left her medications there therefore she was without her respiratory medications for a week or more. Her respiratory status became significantly worse and she had to be taken to the hospital. Patient was given prednisone and ultimately she was able to get her Trelegy inhaler. He was also issues with her nebulizer. But apparently she does have a nebulizer available. I will make sure she has the medication available at home to be able to treat herself she develops any significant congestion. In the meantime the patient did have a CT scan of the chest lost over the summer of 2020 demonstrating a 1.5 cm spiculated nodule in addition to other subsolid nodular densities that need follow-up. The CT scan demonstrated stability of the nodular densities. Therefore will plan to repeat the CT scan a year from her last 1 which will be in December 2021. Will follow-up after the CT scan. If the patient develops any worsening symptoms prior to that she is to call the office because we may want to look at does density sooner rather than later if that is the case. She is following closely with Endocrinology. Seems to be doing well in remission from her thyroid cancer. Now has significant osteoporosis therefore needs to be very careful with systemic or even inhaled steroids. Currently she is taking a small dose of inhaled steroids with her Trelegy which will continue in view of her recent exacerbation. 04/30/2022 the patient is here for pulmonary follow-up visit. He has been lost to follow-up. She had a CT scan back in December that was supposed to follow-up then. She does have concerning findings including a 1.5 cm spiculated left upper lobe nodular density as well as the other changes stated previously. The patient is high risk with a history of smoking. We did review her CT scan from December 2021 demonstrating again the 1.5 cm spiculated lesion. With her history although this is not changing go ahead and presented at tumor conference. The patient has continued to use her respiratory therapy. she denies any significant shortness of breath or any worsening cough symptoms. Her appetite is good per the patient. She denies any night sweats or weight loss. 07/06/2023 the patient is here for a pulmonary follow-up visit. The patient overall has been doing well. No significant weight loss or night sweats. Her appetite continues to be well. She continues on the Trelegy inhaler that appears to be affecting beneficial. She also has a rescue inhaler that she is she does not require. She did have a CT scan of the chest back in December 2022 demonstrating a 1.5 spiculated lesion which appears to be concerning in appearance. However, has not really changed in size which is reassuring. Will go ahead and repeat the imaging study at this time based on the concerning appearance. I did talk to the family that if the nodule were to increase in size or worsening in appearance that they can consider a diagnostic intervention. I did talk to the patient as well about it. She seems to be interested in pursuing a diagnostic intervention if the nodule changes or becomes concerning. Currently she is living with her grandson. It appears that she is currently sleeping on a sofa because they only have a 1 bedroom apartment. I think it is reasonable specially if she is part of the least that she gets the room specially with her history of COPD and heart failure that she should have a bed that she can position to provide the most support.. 04/12/2024 the patient is here for a pulmonary follow-up visit. She was lost to follow-up for a period of time. The last time we spoke was back in July which she had a CT scan ordered. The CT scan was considered abnormal with a 1.8 cm spiculated nodule and we did go ahead and relay the information to the family in order a an urgent PET scan to better address the area. Now she is presenting after recent follow-up and has sensation at [facility]. She had a COPD exacerbation. She did not have her nebulized medication at home. I will make sure to send her nebulized medication and also will go ahead and increase her Trelegy to the higher dose of 200 mcg. In the meantime explained to them the concerns about this 1.8 cm spiculated lesion. She did not have a PET scan because apparently did not have insurance at the time. Will go ahead and reorder the PET scan urgently since this is a concern. She does have a history of thyroid cancer already. The patient will follow-up after the PET scan. If she has not issues prior to that she will call for an earlier assessment. [facility] Medical History (HFpEF) heart failure with preserved ejection fraction Afib Bite from dog CHF (congestive heart failure) CKD (chronic kidney disease) COPD (chronic obstructive pulmonary disease) History of thyroid cancer HLD (hyperlipidemia) HTN (hypertension) Hyperparathyroidism Osteoporosis Paroxysmal atrial fibrillation Postoperative hypothyroidism Pulmonary nodules Vitamin D deficiency Surgical History History of parathyroidectomy History of total thyroidectomy History of bladder surgery Family History Father Hypertension Mother No problems noted. Social History (Updated 04/12/24 @ 10:11 by Ann Maldonado LPN) Housing: Apartment Alcohol intake: never Patient Tobacco Use Status: Former Tobacco user Tobacco use type: Cigarette Years Smoked: 40 e-Cigarette/Vaping Use: Never Used Second Hand Smoke Exposure: No service: No Current occupational status: retired and disabled Cognitive needs: No Hearing needs: No Vision needs: Yes Review of Systems Const Denies night sweats ENT Denies change in voice, Denies lip swelling, Denies mouth pain, Reports nasal congestion, Reports nasal discharge and Denies tongue swelling Card Denies chest pain and Reports dyspnea Resp Reports cough, Reports dyspnea and Reports wheezing GI Denies abdominal pain Musc Denies no additional complaints Neuro Denies Neuro-related abnormal movements Psych Denies no additional complaints Malcolm/Lymph Denies easy bleeding and Denies lymphadenopathy Aller/Immun Denies lip swelling, Denies tongue swelling and Reports wheezing Physical Exam Vital Signs: Last Vital Signs Pulse 75 04/12/24 10:03 BP 120/66 04/12/24 10:03 Pulse Ox 97 04/12/24 10:03 Oxygen Delivery Method Room Air 04/12/24 10:03 BMI result Body Mass Index 25.8 Const General: alert Neck Neck: Yes normal visual inspection, Yes full ROM and Yes no lymphadenopathy Chest Chest palpation & inspection: normal inspection of the chest Resp Auscultation: diminished lung sounds Cardio Rate: regular rate Rhythm: regular rhythm Heart sounds: S1 normal heart sound present and S2 normal heart sound present GI Palpation (GI): Soft to palpation and nontender Auscultation: normal bowel sounds Skin General skin exam: rashes and/or lesions noted Results Reviewed Results Reviewed: personally reviewed CT chest with 1.8 spiculated pulmonary nodule Assessment & Plan Assessment & Plan (1) History of thyroid cancer: Code(s): Z85.850 - Personal history of malignant neoplasm of thyroid Category: Medical (2) Pulmonary nodules: Comment: MOLLY subsolid nodule. Irregular appearance. 1.5 spiculated nodule MOLLY Code(s): R91.8 - Other nonspecific abnormal finding of lung field Category: Medical Plan: CT scan of the chest to be completed tomorrow. We will discuss the findings after I have a chance to review them. (3) COPD (chronic obstructive pulmonary disease): Code(s): J44.9 - Chronic obstructive pulmonary disease, unspecified Category: Medical Qualifiers: COPD type: chronic bronchitis Chronic bronchitis type: simple Qualified Code(s): J41.0 - Simple chronic bronchitis Plan Continue Trelegy increase 100->200 short-acting beta agonist as needed PET scan now nebulized therapy as needed follow-up in 2 Orders: Orders PET CT fusion skull to thigh Today R91.1 - Solitary pulmonary nodule Medications: New albuterol sulfate 2.5 mg (3 mL) inhalation Q6H 30 days PRN 180 mL 11RF shortness of breath or wheezing xqbbiuuarmx-uipgzismm-gecgncnw 200-62.5-25 mcg (Trelegy Ellipta) 1 inh inhalation DAILY 30 days 60 ea 12RF Discontinued ubjvwgracwp-lpnvfozki-tngbcdla 100-62.5-25 mcg (Trelegy Ellipta) Discontinued Reason: Doctor's Order 1 ea PO DAILY 60 ea 0RF Coding Level of Care Code Est Pt Level 5 (46319) Diagnoses History of thyroid cancer Z85.850 Pulmonary nodules R91.8 Simple chronic bronchitis J41.0 COPD type: chronic bronchitis Chronic bronchitis type: simple Time Spent (min) 30
== END 2024-04-12 10:28 | disposition home or self-care (01) ==
PROVIDERS: PCP Internal Medicine; Visit Provider Hospitalist
DX: J41.0 Simple chronic bronchitis (principal); R91.8 Other nonspecific abnormal finding of lung field; Z85.850 Personal history of malignant neoplasm of thyroid
CPT/HCPCS: 99214

== ENCOUNTER → 2024-04-12 10:00 | Outpatient (BNVA) | payer MEDICARE, MEDICAID, SELFPAY | PROVIDERS: PCP Internal Medicine; Visit Provider Hospitalist | DX: R91.8 Other nonspecific abnormal finding of lung field (principal); J41.0 Simple chronic bronchitis; Z85.850 Personal history of malignant neoplasm of thyroid | CPT/HCPCS: 99212 ==

== ENCOUNTER 2024-06-06 10:02 | Outpatient (AMB) | payer MEDICARE, MEDICAID, SELFPAY ==
[2024-06-06 10:05] VITALS: BP 126/64; PULSE 68; O2SAT 97; BMI 25.6
--- NOTE | 2024-06-06 10:05 | MHC.OFFVIS ---
Vital Signs 06/06/24 10:05 Height 4 ft 10 in Weight 122 lb 5.705 oz BMI 25.6 BP 126/64 Blood Pressure Location Rt brachial Position Sitting Pulse 68 Pulse Source Pulse Oximeter Pulse Oximetry (%) 97 Oxygen Delivery Method Room Air Intake Visit Reasons: COPD Allergies aspirin Allergy (Mild, Verified 06/06/24 10:09) Rash dipyridamole [From Persantine] Allergy (Mild, Verified 06/06/24 10:09) Rash Iodinated Contrast Media [IV Contrast Dye] Allergy (Unknown, Verified 06/06/24 10:09) Unknown HPI Comments Details: The patient is a 84-year-old woman with a known history of COPD. She was a former smoker. She has been noticing worsening respiratory symptoms with ongoing shortness of breath and cough. She only has a short-acting beta agonist that she uses numerous times a day. Her family becomes concerned because they feel that she is over using her rescue medication. She also has a nebulizer machine although does not have any medicine for. She was admitted last time to [facility]. There she did have a CT scan of the chest demonstrating a spiculated nodular density of concern. She also had emphysematous changes. She did follow-up with thoracic surgery at some point in did have a PET scan ordered. Apparently the PET scan department has been trying to schedule them an appointment and [facility] have not been able to do so. Therefore, we given the numbers for them to call and make arrangements for the PET scan as if this is very important. She already had pulmonary function studies on August and she will be following up with thoracic surgery. She did have a PET scan demonstrating significant FDG activity in the thyroid gland in addition to cervical lymphadenopathy with avid activity. She also had multiple pulmonary nodules some smaller than the accuracy of the PET scan and others for larger with some it activity. Cannot rule out metastatic disease. The patient did have a biopsy of her thyroid gland was positive for malignancy. 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 She does not know the results. I did talk to her family about it. Explained to them that I am concerned that indeed the findings on the CT scan of the chest and PET scan could all be all related to the thyroid. At this point the patient will be following up with endocrinology and then subsequently Oncology. Will have to follow closely this pulmonary nodules. In the meantime the patient did not start her respiratory inhaler. Will have her start trerely. 01/06/2020 the patient has a telephone visit. Overall she is doing well from a respiratory status. She understands she also has pulmonary nodules over following. She continues use the trelegy inhaler. Has not required a short-acting beta agonist. She understands that will following the nodules but patient has not had her CT scan just yet. Initially she was not leaving the house because of the COVID-19 infections. At this point the patient needs to have her CT scan of the chest to make sure that the nodules are not getting any worse. Specially with a history of thyroid cancer. 04/18/2020 the patient has a telephone visit today. Overall the patient has been doing well. She denies any coughing or weight loss or night sweats. We did review her previous CT scans of the chest demonstrating multiple pulmonary nodules. Also had a PET scan demonstrating some mild FDG activity. We did discuss the imaging studies back in the spring and then again in the summer. The patient had not gotten a repeat CT scan. Partly because of the COVID-19 infections. However, she is finally scheduled to have a CT scan of the chest tomorrow. I did spe ak to her grandson. After the CT scan I will talk to them about the results. If the nodules have gotten bigger will need other concerning findings then went to talk about further interventions. Hopefully that is not the case. 06/25/2020 the patient is here for pulmonary follow-up visit. Overall she is doing better. She has been walking better and she is eating better and she is actually not using a wheelchair for the 1st time in well. She states she is feels better after her thyroid medication was changed. In the meantime will monitoring closely her pulmonary nodules. Her last CT scan of the chest was done recently and was personally by me. She does have a intermediate size pulmonary nodule in the left upper lobe which is concerning in appearance was as subsolid component. She has had a PET scan in the past. Demonstrating mild FDG activity. At this point the nodule has not significantly changed from last year. However, the appearance of it is indeed a little concerning. Therefore we had repeat a CT scan in 6 months. If they area still abnormal or any change in his appearance consider bronchoscopy to at least assess the airways and to potentially perform a diagnostic intervention. In the meantime she is going to continue with current respiratory therapy which appears to be effective for her. 08/12/2021 the patient is here for a pulmonary follow-up visit. Overall the patient has been doing better. Apparently she did get back from [place] and she left her medications there therefore she was without her respiratory medications for a week or more. Her respiratory status became significantly worse and she had to be taken to the hospital. Patient was given prednisone and ultimately she was able to get her Trelegy inhaler. He was also issues with her nebulizer. But apparently she does have a nebulizer available. I will make sure she has the medication available at home to be able to treat herself she develops any significant congestion. In the meantime the patient did have a CT scan of the chest lost over the summer of 2020 demonstrating a 1.5 cm spiculated nodule in addition to other subsolid nodular densities that need follow-up. The CT scan demonstrated stability of the nodular densities. Therefore will plan to repeat the CT scan a year from her last 1 which will be in December 2021. Will follow-up after the CT scan. If the patient develops any worsening symptoms prior to that she is to call the office because we may want to look at does density sooner rather than later if that is the case. She is following closely with Endocrinology. Seems to be doing well in remission from her thyroid cancer. Now has significant osteoporosis therefore needs to be very careful with systemic or even inhaled steroids. Currently she is taking a small dose of inhaled steroids with her Trelegy which will continue in view of her recent exacerbation. 04/30/2022 the patient is here for pulmonary follow-up visit. He has been lost to follow-up. She had a CT scan back in December that was supposed to follow-up then. She does have concerning findings including a 1.5 cm spiculated left upper lobe nodular density as well as the other changes stated previously. The patient is high risk with a history of smoking. We did review her CT scan from December 2021 demonstrating again the 1.5 cm spiculated lesion. With her history although this is not changing go ahead and presented at tumor conference. The patient has continued to use her respiratory therapy. she denies any significant shortness of breath or any worsening cough symptoms. Her appetite is good per the patient. She denies any night sweats or weight loss. 07/06/2023 the patient is here for a pulmonary follow-up visit. The patient overall has been doing well. No significant weight loss or night sweats. Her appetite continues to be well. She continues on the Trelegy inhaler that appears to be affecting beneficial. She also has a rescue inhaler that she is she does not require. She did have a CT scan of the chest back in December 2022 demonstrating a 1.5 spiculated lesion which appears to be concerning in appearance. However, has not really changed in size which is reassuring. Will go ahead and repeat the imaging study at this time based on the concerning appearance. I did talk to the family that if the nodule were to increase in size or worsening in appearance that they can consider a diagnostic intervention. I did talk to the patient as well about it. She seems to be interested in pursuing a diagnostic intervention if the nodule changes or becomes concerning. Currently she is living with her grandson. It appears that she is currently sleeping on a sofa because they only have a 1 bedroom apartment. I think it is reasonable specially if she is part of the least that she gets the room specially with her history of COPD and heart failure that she should have a bed that she can position to provide the most support.. 04/12/2024 the patient is here for a pulmonary follow-up visit. She was lost to follow-up for a period of time. The last time we spoke was back in July which she had a CT scan ordered. The CT scan was considered abnormal with a 1.8 cm spiculated nodule and we did go ahead and relay the information to the family in order a an urgent PET scan to better address the area. Now she is presenting after recent follow-up and has sensation at [facility]. She had a COPD exacerbation. She did not have her nebulized medication at home. I will make sure to send her nebulized medication and also will go ahead and increase her Trelegy to the higher dose of 200 mcg. In the meantime explained to them the concerns about this 1.8 cm spiculated lesion. She did not have a PET scan because apparently did not have insurance at the time. Will go ahead and reorder the PET scan urgently since this is a concern. She does have a history of thyroid cancer already. The patient will follow-up after the PET scan. If she has not issues prior to that she will call for an earlier assessment. 06/06/2024 the patient is here for a pulmonary follow-up visit. Overall she is doing okay. Denies any significant weight loss or night sweats. Denies any worsening cough. She is taking her respiratory medications as prescribed with good effect. She did have the abnormal finding of 1.8 cm spiculated lesion in the left upper lobe. She did get the PET scan and we did review it. It appeared that the larger nodular density in the left upper lobe had an FDG activity of 2.5 which is just on low threshold of abnormal. This is a nonspecific hypomanic buttock process. The patient has other densities which are with less FDG. Likely inflammatory or infectious. That is likely malignant although still in differential. We did talk about different options as far as CT-guided biopsy versus bronchoscopy. The family and the patient were agreeable to a bronchoscopy to rule out infections in addition to assess for smoldering cancer. [facility] Medical History (HFpEF) heart failure with preserved ejection fraction Afib Bite from dog CHF (congestive heart failure) CKD (chronic kidney disease) COPD (chronic obstructive pulmonary disease) History of thyroid cancer HLD (hyperlipidemia) HTN (hypertension) Hyperparathyroidism Osteoporosis Paroxysmal atrial fibrillation Postoperative hypothyroidism Pulmonary nodules Vitamin D deficiency Surgical History History of parathyroidectomy History of total thyroidectomy History of bladder surgery Family History Father Hypertension Mother No problems noted. Social History Housing: Apartment Alcohol intake: never Patient Tobacco Use Status: Former Tobacco user Tobacco use type: Cigarette Years Smoked: 40 e-Cigarette/Vaping Use: Never Used Second Hand Smoke Exposure: No service: No Current occupational status: retired and disabled Cognitive needs: No Hearing needs: No Vision needs: Yes Review of Systems Const Denies night sweats ENT Denies change in voice, Denies lip swelling, Denies mouth pain, Reports nasal congestion, Reports nasal discharge and Denies tongue swelling Card Denies chest pain and Reports dyspnea Resp Reports cough, Reports dyspnea and Reports wheezing GI Denies abdominal pain Reports difficulty voiding Musc Denies no additional complaints Neuro Denies Neuro-related abnormal movements Psych Denies no additional complaints Malcolm/Lymph Denies easy bleeding and Denies lymphadenopathy Aller/Immun Denies lip swelling, Denies tongue swelling and Reports wheezing Physical Exam Vital Signs: Last Vital Signs Pulse 68 06/06/24 10:05 BP 126/64 06/06/24 10:05 Pulse Ox 97 06/06/24 10:05 Oxygen Delivery Method Room Air 06/06/24 10:05 BMI result Body Mass Index 25.6 Const General: alert Neck Neck: Yes normal visual inspection, Yes full ROM and Yes no lymphadenopathy Chest Chest palpation & inspection: normal inspection of the chest Resp Auscultation: diminished lung sounds Cardio Rate: regular rate Rhythm: regular rhythm Heart sounds: S1 normal heart sound present and S2 normal heart sound present GI Palpation (GI): Soft to palpation and nontender Auscultation: normal bowel sounds Skin General skin exam: rashes and/or lesions noted Results Reviewed Results Reviewed: personally reviewed CT chest with 1.8 spiculated pulmonary nodule Assessment & Plan Assessment & Plan (1) History of thyroid cancer: Code(s): Z85.850 - Personal history of malignant neoplasm of thyroid Category: Medical (2) Pulmonary nodules: Comment: MOLLY subsolid nodule. Irregular appearance. 1.5 spiculated nodule MOLLY Code(s): R91.8 - Other nonspecific abnormal finding of lung field Category: Medical Plan: CT scan of the chest to be completed tomorrow. We will discuss the findings after I have a chance to review them. (3) COPD (chronic obstructive pulmonary disease): Code(s): J44.9 - Chronic obstructive pulmonary disease, unspecified Category: Medical Qualifiers: COPD type: chronic bronchitis Chronic bronchitis type: simple Qualified Code(s): J41.0 - Simple chronic bronchitis Plan Continue Trelegy increase 100->200 short-acting beta agonist as needed plan for bronchosocopy to assess the MOLLY spiculated nodule nebulized therapy as needed follow-up in 2 months Orders: Orders UA and rflx microscopic Today R30.0 - Dysuria Coding Level of Care Code Est Pt Level 5 (56734) Diagnoses History of thyroid cancer Z85.850 Pulmonary nodules R91.8 Simple chronic bronchitis J41.0 COPD type: chronic bronchitis Chronic bronchitis type: simple Time Spent (min) 20
== END 2024-06-06 10:35 | disposition home or self-care (01) ==
PROVIDERS: PCP Internal Medicine; Visit Provider Hospitalist
DX: J41.0 Simple chronic bronchitis (principal); R91.8 Other nonspecific abnormal finding of lung field; Z85.850 Personal history of malignant neoplasm of thyroid
CPT/HCPCS: 99214

== ENCOUNTER → 2024-06-06 10:02 | Outpatient (BNVA) | payer MEDICARE, MEDICAID, SELFPAY | PROVIDERS: PCP Internal Medicine; Visit Provider Hospitalist | DX: R91.1 Solitary pulmonary nodule (principal); J41.0 Simple chronic bronchitis; Z85.850 Personal history of malignant neoplasm of thyroid | CPT/HCPCS: 99212 ==

== ENCOUNTER 2024-06-14 12:06 | Outpatient (REF) | payer MEDICARE, MEDICAID, SELFPAY ==
[2024-06-14 13:35] LABS: Calcium 9.2 mg/dL (8.4-10.2)
[2024-06-14 13:57] LABS: Free T4 (Free Thyroxine) 1.33 ng/dL (0.71-1.85); Thyroid Stimulating Hormone 4.31 uIU/mL (0.32-4.0)
== END 2024-06-14 12:07 | disposition home or self-care (01) ==
LOC: HO.LAB 12:06
PROVIDERS: Absent Provider Internal Medicine Endocrinology, Diabetes & Metabolism; PCP Internal Medicine; Visit Provider Hospitalist
DX: E89.0 Postprocedural hypothyroidism (principal); M81.0 Age-related osteoporosis without current pathological fracture
CPT/HCPCS: 36415; 82310; 84439; 84443

== ENCOUNTER 2024-06-20 12:02 | Day surgery (SDC) | payer MEDICARE, MEDICAID, SELFPAY ==
[2024-06-20] VITALS (8 sets, daily range): BP systolic 101–160; BP diastolic 61–82; PULSE 58–74; RESP 14–16; TEMP 36.1–36.8; O2SAT 96–98; BMI 23.4
--- NOTE | ~2024-06-20 | FL_ITS ---
EXAMINATION: FLUOROSCOPY GUIDANCE FOR NEEDLE PLACEMENT CLINICAL INFORMATION: fiberoptic bronchoscopy COMPARISON: None available. TECHNIQUE: Single digital image obtained in the OR. FINDINGS: Fluoroscopy guidance was provided to Dr. Colby in the OR for left lung intervention/biopsy. FLUOROSCOPY TIME: 0.0 minutes. DOSE AREA PRODUCT: 0.021 uGy-m2 (microgray-meter squared) FL/FL guidance in OR IMPRESSION: Fluoroscopy guidance was provided to referring physician during chest intervention. Electronically signed by: Nik Orodnez MD 06/21/2024 08:42 AM [facility]
--- NOTE | 2024-06-20 12:11 | MHC.SHP ---
Pre-Procedural Eval Section A - 24 Hr Update-Section A only Date of Service: 06/20/24 The patient is an INPATIENT: No Changes since office visit: No Cold of Flu in the past 2 weeks, No New Medical Problems, No Changes in Medication and No Patient answered all questions The patient has been examined within 24 hours of the surgical procedure. The History & Physical has been completed within 30 days and I have reviewed it.: Yes Section B - Complete if H&P > 30 days Chief Complaint: Other nonspecific abnormal finding of lung field Allergies: Allergies Allergy/AdvReac Type Severity Reaction Status Date / Time aspirin Allergy Mild Rash Verified 06/06/24 10:09 dipyridamole Allergy Mild Rash Verified 06/06/24 10:09 [From Persantine] Iodinated Contrast Media Allergy Unknown Unknown Verified 06/06/24 10:09 [IV Contrast Dye] Plan I have reviewed the history and physical and performed a pertinent physical examination on my patient. No changes have occurred unless specified. Time Spent With Patient Time: Total time managing care of this patient today ____ minutes.
--- OUTSIDE RECORDS SUMMARY | 2024-06-20 12:52 | XMS_ITS | Continuity of Care Document ---
Author Organization [facility] ter Address [address] [place] [address]- Care Team Providers Care Inventory Checker Name Role Phone Redd Valiente MD, Laura Damon Primary Care Physician [phone] [place] [facility] [place]): 06/18/24 - 06/19/[address] [address]- Encounter Diagnosis Medication management(Final) - 06/19/24 Elbow pain(Final) - 06/19/24 Discharge Disposition: A-D/C Home Attending Physician: Thierry Hernandez MD Admitting Physician: Thierry Hernandez MD Referring Physician: Not on Staff, Referring MD Encounter Type: Disch ES Allergies, Adverse Reactions, Alerts Substance Criticality Severity Reaction Reaction Severity Status Contrast Dye hives all over Ac tive aspirin hives full body Acti ve Persantine unknown Active bacitracin Allergic dermatitis Active Immunizations Given and Recorded Vaccine Date Status Refusal Reason SARS-CoV-2 (COVID-19) mRNA-1273 vaccine 10/30/20 R ecorded SARS-CoV-2 (COVID-19) mRNA-1273 vaccine 10/01/20 R ecorded influenza virus vaccine, inactivated 04/20/18 Jeffery rded influenza virus vaccine, inactivated 06/22/15 Jeffery rded pneumococcal 13-valent vaccine 04/30/17 Given pneumococcal 23-valent vaccine 07/05/15 Given tetanus/diphtheria/pertussis, acel(Tdap) 07/04/15 Given Problem List Condition Confirmation Course Effective Dates Status Health St atus Informant Afib Confirmed Active Chronic kidney disease (CKD), stage III (moderate) Confirmed Active CHF (congestive heart failure) Confirmed Active History of Clostridium difficile Confirmed Active HLD (hyperlipidemia) Confirmed Active HTN (hypertension) Confirmed Active Osteoporosis Confirmed Active Overweight Confirmed Active Paroxysmal atrial fibrillation Confirmed Active Paroxysmal atrial fibrillation with RVR Confirmed Active *[id number] are Partner Rainer Sun Confirmed Active Results Radiology Reports * Exam Date Time Procedure Performing Provider Status 06/19/24 1:54 AM Elbow Min 3 Views Left Ora Nazario; Auth (Verified) Notes: (Elbow Min 3 Views Left) Reason For Exam: Pain RESULT: Elbow Min 3 Views Left Elbow Min 3 Views Left, 3 views Hx of Present Illness: Pt reporting her grandson woke her up to take her night metoprolol but she got confused and took levothryoxine instead, she took her morning dose this am, she did not take her metoprolol, pt denies sx at this time, stated felt nausea while on the ambulan; Reason: Pain; Clinical Question(s): Fracture COMPARISON: None. FINDINGS: There is no evidence of acute fracture-dislocation. Mild osteoarthritic changes with mild spurring. No joint effusion. IMPRESSION: There is no evidence of acute fracture or dislocation. WSN: [id number] Ordering Physician: Adrian Brooke Dictated By: Betina Roman MD Dictated Date/Time: 06/19/24 6:25 am Reviewed By: Betina Roman MD Signed By: Betina Roman MD Signed Date/Time: 06/19/24 6:25 am Transcribed By: KARIME Transcribed Date/Time: 06/19/24 6:23 am Vital Signs Most recent to oldest [Reference Range]: 1 2 3 Height 154.1 cm (06/18/24 11:16 PM) 154.1 cm (06/18/24 10:57 PM) Weight 55.4 kg (06/18/24 11:16 PM) 55.4 kg (06/18/24 10:57 PM) Oxygen Saturation [94-100 %] 99 % (06/19/24 4:46 AM) 98 % (06/19/24 1:14 AM) 98 % (06/19/24 12:26 AM) Pulse Rate [55-90 bpm] 64 bpm (06/19/24 4:46 AM) 65 bpm (06/19/24 1:14 AM) 67 bpm (06/19/24 12:26 AM) Body Mass Index [18.5-24.99 kg/m2] 23.33 kg/m2 (06/18/24 10:57 PM) Blood Pressure [90-138/55-84 mm Hg] 142/75mm Hg *H* (06/19/24 4:46 AM) 118/70mm Hg (06/19/24 1:14 AM) 128/81mm Hg (06/19/24 12:26 AM) Respiratory Rate [16-30 br/min] 18 br/min (06/19/24 4:46 AM) 17 br/min (06/19/24 1:14 AM) 18 br/min (06/19/24 12:26 AM) Temperature [96.8-100.4 DegF] 97.9 DegF (06/19/24 4:46 AM) 98.2 DegF (06/19/24 12:26 AM) 98.2 DegF (06/18/24 10:57 PM) Mode of Delivery (Oxygen) Room air (06/19/24 4:46 AM) Room air (06/19/24 1:14 AM) Room air (06/19/24 12:26 AM) Blood pressure sites Arm, right (06/19/24 4:46 AM) Arm, right (06/19/24 1:14 AM) Arm, right (06/19/24 12:26 AM) Temperature Route Oral (06/19/24 4:46 AM) Oral (06/19/24 12:26 AM) Oral (06/18/24 10:57 PM) Dry Weight 55.4 kg (06/18/24 11:16 PM) 55.4 kg (06/18/24 10:57 PM) Weight Obtained Via Patient/family state d (06/18/24 10:57 PM) Dry Weight Obtained Via Patient/family s tated (06/18/24 10:57 PM) Social History Social History Type Response Smoking Status Former smoker entered on: 04/30/17 Sex Sex Representation Female (finding) EKG study * Event Display: EKG Authored Date: [id number] * Event Display: ECG 12-Lead Authored Date: [id number] Please click on pdf link to open report * Event Display: ECG 12-Lead Authored Date: [id number] Ventricular Rate: 66 BPM Atrial Rate: 66 BPM P-R Interval: 110 ms QRS Duration: 64 ms Q-T Interval: 416 ms QTC Calculation(Bazett): 436 ms P [place]: 100 degrees R [place]: -11 degrees T [place]: 8 degrees Sinus rhythm with short MS Nonspecific ST abnormality Abnormal ECG When compared with ECG of 28-Mar-2024 03:08, MS interval has decreased Confirmed by Darian Kraft ([id number]) on 06/19/2024 10:57:55 AM [place]: Darian Kraft Note * Adrian Brooke MD: PERFORM Event Display: Patient Education Leaflets Authored Date: [id number] Mechanical Fall ?? [id number] Despu??s de alok ca??da Hoy sufri?? alok ca??da. Quiz??s se resbal??, tropez?? o perdi?? el equilibrio. Si la ca??da se juma?? a un desvanecimiento o a alok convulsi??n, es posible que necesite otras pruebas. Es normal que sienta los m??sculos y la espalda tensos y doloridos al d??a siguiente, incluso si nose lesionaron. Recuerde que todas las partes del cuerpo est??n conectadas, as?? que aunque hoy le duela alok ash, ma??laura podr??a doler otra. Adem??s, las lesiones producen inflamaci??n. La inflamaci??n hace que los m??sculos se tensen y duelan m??s. Al principio puede agravarse, scar poco a poco mejorar?? en los d??as siguientes. Avise al proveedor de atenci??n m??dica si el dolor se agudiza. Incluso si no tiene alok lesi??n evidente en la keesha, podr??a tener alok conmoci??n cerebral por abhijeet sacudido repentinamente la keesha hacia adelante, hacia atr??s o hacia los costados cuando se bird??. Pueden ocurrir conmociones cerebrales e incluso sangrado, en especial si tuvo alok lesi??n reciente o si usa medicamentos anticoagulantes. Es com??n que tenga dolor de keesha leve y se sienta cansado e incluso con n??useas o mareos.?? Cuidados en el hogar ??? Descanse hoy y podr?? reanudar denilson actividades habituales cuando vuelva a sentirse veto. ??? Si se lesion?? en la ca??da, siga las recomendaciones de wilson proveedor de atenci??n m??dica para atender la herida. ??? Al principio, no intente estirar los puntos sensibles. Si tiene alok distensi??n muscular, estirarse podr??a empeorarla. Los masajes pueden ayudar a relajar los m??sculos sin estirarlos. ??? Use alok compresa fr??a o de hielo en las zonas doloridas silverio 10??a??20??minutos por vez, con la frecuencia que se sienta c??modo. Puede ayudar a reducir la inflamaci??n, la hinchaz??n y el dolor. ??? Tenga presente que si tiene raspaduras, por lo general sanan en unos 10??d??as. Mientras tanto, mant??ngalas limpias. De todos modos, a veces pueden infectarse a pesar de recibir el cuidado adecuado. Vigile cualquier indicio de que est?? empezando alok infecci??n (por ejemplo, calor, enrojecimiento o hinchaz??n). ?? Medicamentos ??? Hable con wilson proveedor de atenci??n m??dica antes de usar medicamentos nuevos, especialmente si tiene otros problemas de nina o si nikkie otros medicamentos. ??? Si necesita algo parael dolor, use paracetamol o ibuprofeno, a menos que le hayan recetado otro analg??sico.??Hable con wilson proveedor de atenci??n m??dica antes de usar estos medicamentos en los siguientes casos: o Tiene alok enfermedad hep??andrei o renal cr??skylar. o Alguna vez tuvo alok ??lcera estomacal o hemorragia gastrointestinal. o Est?? tomando anticoagulantes. ??? Tenga cuidado si le recetan analg??sicos, narc??ticos o medicamentos para el espasmo muscular. Le pueden producir somnolencia y mareos. Adem??s, pueden afectar wilson coordinaci??n, denilson reflejos y wilson sentido de la realidad. Mientras use estos medicamentos, no conduzca ni rubina trabajos en los que pueda lastimarse. ?? Prevenci??n de ca??orellana ??? Repare, quite o sustituya lo que sea que haya causado la ca??da. ??? Mantenga wilson hogar seguro despejando los pasillos de objetos que puedan hacer que tropiece. ??? Use almohadillas antideslizantes debajo de las alfombras. No use tapetes ni alfombras lidia??os. ??? No camine por zonas que no est??n suficientemente iluminadas. ??? No se pare sobre santiago ni escaleras inestables. ??? Tenga cuidado cuando se estire para alcanzar algo muy alto o al mirar hacia arriba. Estaposici??n puede ocasionar p??rdida del equilibrio. ??? Aseg??rese de que el calzado le quede veto, que tenga suelas antideslizantes y que est?? en buenas condiciones. ??? Tenga cuidado cuando suba o baje los cordones de la vereda y cuando camine en veredas desparejas. ??? Si le sherita mantener el equilibrio, analice la posibilidad de usar un sophia??n o un caminador. ??? Mant??ngase jenkins activo comopueda. El ejercicio mejorar?? wilson equilibrio, flexibilidad, fortaleza y resistencia. Todos estos factores intervienen en la prevenci??n de las ca??orellana. ??? Si tiene mascotas, f??vamshi d??nde est??n antes de ponerse de pie o caminar para no tropezar con ellas. ??? Limite el consumo de alcohol. El alcohol puede causar problemas de equilibrio y aumentar el riesgo de sufrir ca??orellana. ??? Use luces nocturnas. ??? H??gase revisar ojos para asegurarse de que ve veto, incluso si ya usa anteojos.? Visitas de control Asista a los controles con wilson proveedor de atenci??n m??dica seg??n le hayan indicado. Si se realiz?? alok radiograf??a o alok tomograf??a computarizada, le informar??n si existe alg??n cambio en la lectura, especialmente si afecta el tratamiento. ?? Cu??ndo llamar al 911 Llame al 911 si ocurre algo de lo siguiente: ??? Dificultad para respirar ??? Confusi??n ??? Dificultades para despertarse ??? Desmayos o p??rdida del conocimiento ??? Frecuencia card??padmini r??pida o muy lenta ??? Convulsiones ??? Dificultad para expresarse o para rose, debilidad en un brazo o alok pierna ??? Dificultad para caminar o hablar, p??rdida del equilibrio, entumecimiento o debilidad en unlado del cuerpo, par??lisis facial ?? Cu??ndo buscar atenci??n m??dica Llame a wilson proveedor de atenci??n m??dica de inmediato??ante cualquiera de los siguientes s??ntomas: ??? Ca??orellana constantes, incluso las que no tienen alok causa aparente ??? Mareos ??? Dolor de keesha intenso ??? Omari en el v??alma o en las heces (de color negruzco o rojizo) ?? Last Reviewed Date: 2019 ?? [id number] [employer]. Todos los derechos reservados. Esta informaci??n no pretende sustituir la atenci??n m??dica profesional. S??lo wilson m??dico puede diagnosticar y tratar un problema de nina. ?? Patient Care team information Care Team Personnel Name: Devin Romero RN Position: S RN Member Role: Primary Care Nurse Name: Darian Carrera RN Position: S RN Member Role: Primary Care Nurse Name: Marisol Emery RN Position: S RN Member Role: Primary Care Nurse Name: Clare Mercado RN Position: S RN Member Role: Primary Care Nurse Name: Laura Hood MD Position: Reference Physician Member Role: PCP Address: [address] [facility] [address] [place] [address]- Telecom: Name: Cynthia Mercado LPN Position: [facility] RN Member Role: Primary Care Nurse Name: Daysi Núñez RN Position: [facility] Hospital Soft Top Installer Member Role: Primary Care Nurse Name: Sundar Gunter RN Position: [facility] RN Member Role: Primary Care Nurse Name: Nathalie Combs RN Position: [facility] RN Member Role: Primary Care Nurse Care Team Related Persons Name: CUELLARFLASH Allen Name: THERESA SILVA Name: KEON MACK Insurance Providers Guarantor name: ELIE EPPS MediGain Plan Information #: 2 Payer: [employer] Member Number: [id number] Policy Number: NA Group Number: NA Health Plan Information #: 1 Payer: MEDICARE PART B OUTPT Member Number: [id number] Policy Number: NA Group Number: NA
--- NOTE | 2024-06-20 13:16 | HO.ANESPROP2 ---
HPI - Anesthesia Eval Consult details Narrative: for bronchoscpy PMFSH Active Problems Active Problems: All Active Problems Dysuria (Acute) COPD (chronic obstructive pulmonary disease) (Acute) Bite from dog (Acute) Paroxysmal atrial fibrillation (Acute) (HFpEF) heart failure with preserved ejection fraction (Acute) Vitamin D deficiency (Acute) Pulmonary nodules (Acute) Osteoporosis (Acute) Hyperparathyroidism (Acute) Postoperative hypothyroidism (Acute) History of thyroid cancer (Acute) Past Medical History Medical History Bite from dog Paroxysmal atrial fibrillation (HFpEF) heart failure with preserved ejection fraction COPD (chronic obstructive pulmonary disease) CKD (chronic kidney disease) HLD (hyperlipidemia) HTN (hypertension) Afib CHF (congestive heart failure) Vitamin D deficiency Pulmonary nodules Osteoporosis Hyperparathyroidism Postoperative hypothyroidism History of thyroid cancer Family History Family History Father Hypertension Mother No problems noted. Family history of problems with anesthesia: No Surgical History Surgical History History of parathyroidectomy History of total thyroidectomy History of bladder surgery History of Problems with Anesthesia: Yes Social History Social History Housing: Apartment Alcohol intake: never Patient Tobacco Use Status: Former Tobacco user Tobacco use type: Cigarette Years Smoked: 40 e-Cigarette/Vaping Use: Never Used Second Hand Smoke Exposure: No Advance Directives: No Advance Directives Information Provided: Yes service: No Current occupational status: retired and disabled Cognitive needs: No Hearing needs: No Vision needs: Yes Meds Allergies Allergy/AdvReac Type Severity Reaction Status Date / Time aspirin Allergy Mild Rash Verified 06/20/24 13:04 dipyridamole Allergy Mild Rash Verified 06/20/24 13:04 [From Persantine] Iodinated Contrast Media Allergy Unknown Unknown Verified 06/20/24 13:04 [IV Contrast Dye] Exam Airway Mallampati Class: II TM Dist: >3cm Neck ROM: Limited Heart: afib Lungs: cta Assessment and Plan Assessment Anesthesia Assessment: Anesthesia Plan Discussed Final Anesthetic Review Family History of Problems with Anesthesia: No History of Problems with Anesthesia: Yes NPO: Yes ASA Class: III Final Preanesthetic Review: No Changes in Pt Med Stat, Meds/Allgs Chart Reviewed, Consent Obtained/Reviewed and Anes Risks/Benef Reviewed Patient Risk: Intermediate Procedure Risk: Low Anesthetic Plan Anesthetic Plan: GA Disposition: Standard PACU
[2024-06-20] MEDS: Lactated Ringers 1,000 ML 80 ML IVCONT (13:31)
--- NOTE | 2024-06-20 15:51 | P.BOP_ITS ---
Brief Operative Note Date of Service: 06/20/24 Pre-op diagnosis: pulmonary nodule Post-op diagnosis: other (pulmonary nodule, laryngeal polypoid lesion) Procedure: Bronchoscopy with washings and brushings Surgeon: Josh Colby MD Anesthesia: GLMA Was an Forming Tube Selector used for this Procedure?: No Estimated blood loss (mL): 0 Pathology: other (Cytology MOLLY) Condition: stable Disposition: same day
--- NOTE | 2024-06-20 23:18 | OP_ITS ---
DATE OF SERVICE: 06/20/2024 SURGEON: Josh Colby MD PREOPERATIVE DIAGNOSIS: Pulmonary nodule. POSTOPERATIVE DIAGNOSIS:pulmonary nodule, laryngeal polyp PROCEDURE PERFORMED:bronchoscopy with washings and brushings ESTIMATED BLOOD LOSS:0 COMPLICATIONS: ANESTHESIA: LMA. ASSISTANTS:none SPECIMENS: ASA CLASSIFICATION: III. DESCRIPTION OF PROCEDURE: After the patient was adequately sedated, LMA in place. Flexible digital bronchoscope was inserted via the LMA to the level of the larynx. The vocal cord is more symmetric into the midline. Initially, they were difficult to find due to irregularities of the larynx and the polypoid density. I did take a picture, I did not print, but we will request to see if it can be printed at a later time. After instilling lidocaine, the bronchoscope was then navigated, passed the vocal cords to level of the trachea. It was torturous, but normal in appearance. After instilling lidocaine, the bronchoscope was then passed the trachea to the level of the tracheobronchial tree up to segmental level. No endobronchial lesions or masses noted. The friable mucosa noted, right more than left. Bronchial washings were collected bilaterally, primarily in the left upper lobe area. No significant mucous secretions noted. The bronchoscope was navigated to the left upper lobe where a cytologic brush was introduced and also microscopic brushes into this into the apical posterior segment of the left upper lobe. Initially, we are going to use fluoro; however, because of time constraints and patient's difficult airway with the LMA, we have to just to have the procedure done without the fluoro. The microscopic brush was sent for proper microscopic cultures and the cytology was placed on cytorich solution for cell block and evaluation by er tech. The brushes were removed and the patient has minimal bleeding. Ice saline was used with good hemostasis. No active bleeding at the end of the procedure. The bronchoscope was then removed. The total endoscopic time approximately 10 minutes. Patient tolerated the procedure well except for the fact that the LMA was not fitting well. Again noted the laryngeal polyp that was not biopsied because of the risk of laryngeal spasms. No complications noted and no bleeding noted. MD RENALDO Hinojosa/ROE / [id number] [facility]
== END 2024-06-20 16:11 | disposition home or self-care (01) ==
PROVIDERS: PCP Internal Medicine; Visit Provider Hospitalist
PROC: 0BJ08ZZ Inspection of Tracheobronchial Tree, Via Natural or Artificial Opening Endoscopic (ICD-10-PCS; CPT 31622; principal; 2024-06-20 14:10)
DX: R91.8 Other nonspecific abnormal finding of lung field (principal); J38.1 Polyp of vocal cord and larynx; J41.0 Simple chronic bronchitis; Z87.891 Personal history of nicotine dependence; I48.0 Paroxysmal atrial fibrillation; I13.0 Hypertensive heart and chronic kidney disease with heart failure and stage 1 through stage 4 chronic kidney disease, or unspecified chronic kidney disease; N18.9 Chronic kidney disease, unspecified; I50.30 Unspecified diastolic (congestive) heart failure; E78.5 Hyperlipidemia, unspecified; E89.0 Postprocedural hypothyroidism; Z85.850 Personal history of malignant neoplasm of thyroid; Z79.51 Long term (current) use of inhaled steroids; Z79.899 Other long term (current) drug therapy; Z88.6 Allergy status to analgesic agent; Z88.8 Allergy status to other drugs, medicaments and biological substances; Z91.041 Radiographic dye allergy status; Z98.890 Other specified postprocedural states
CPT/HCPCS: 31623; 87070; 87077; 87102; 87116; 87186; 87205; 87206; 88112; J0171; J2003; J2405; J2704

== ENCOUNTER → 2024-06-20 12:02 | Outpatient (BNV) | payer MEDICARE, MEDICAID, SELFPAY | PROVIDERS: PCP Internal Medicine; Visit Provider Hospitalist | DX: R91.1 Solitary pulmonary nodule (principal); J38.1 Polyp of vocal cord and larynx | CPT/HCPCS: 31623 ==

== ENCOUNTER 2024-06-27 15:57 | Outpatient (AMB) | payer MEDICARE, MEDICAID, SELFPAY ==
--- NOTE | 2024-06-27 16:04 | MHC.PC.OV ---
Vital Signs 06/27/24 16:07 Height 5 ft Weight 119 lb 4 oz BMI 23.3 BP 90/62 Blood Pressure Location Lt brachial Position Sitting Pulse 71 Pulse Source Pulse Oximeter Temp 97.3 F Temp Source Skin Pulse Oximetry (%) 98 Oxygen Delivery Method Room Air Intake Visit Reasons: follow up Intake Note: Patient is here to follow up on PAfib. Technology Manager Required: Yes Technology Manager Language: Vegetable Loader Machine Operator Name: Dominick(Thony miranda), NATASHA Dugan Information Interpreted: non-clinical & clinical Forensic Economist: Present Accompanied by: thony hayden Allergies levofloxacin Allergy (Intermediate, Verified 06/27/24 16:31) Dizziness aspirin Allergy (Mild, Verified 06/27/24 16:31) Rash dipyridamole [From Persantine] Allergy (Mild, Verified 06/27/24 16:31) Rash Iodinated Contrast Media [IV Contrast Dye] Allergy (Unknown, Verified 06/27/24 16:31) Unknown Medication List - Last Reconciled 06/27/24 by Kailee Parks PA-C albuterol sulfate 2.5 mg (3 mL) inhalation Q8H PRN albuterol sulfate 2.5 mg (3 mL) inhalation Q6H PRN 30 days albuterol sulfate 90 mcg/actuation 2 inhalations inhalation Q6H PRN 30 days apixaban (Eliquis) 2.5 mg PO BID 90 days calcium citrate-vitamin D3 315 mg-6.25 mcg (250 unit) 2 tabs PO BID 30 days cholecalciferol (vitamin D3) 50 mcg PO DAILY 30 days denosumab 60 mg subcut [id number]-kigaudseq-aoxofuub 200-62.5-25 mcg (Trelegy Ellipta) 1 inh inhalation DAILY 30 days furosemide 20 mg PO DAILY 90 days levothyroxine 88 mcg PO DAILY metoprolol tartrate 50 mg PO BID 90 days mirtazapine 15 mg PO BEDTIME 90 days Tobacco use date assessed: 06/27/24 Fall risk assessment: No Falls in past year Last assessed Fall Risk: 06/27/24 Dental Screening Dental Screen Date: 06/27/24 Did you have a dental visit in the last 12 months?: No Did you have a dental problem in the last 6 months where you did not have access to dental care?: No Was dental information given to patient?: No PFSH Medical History (Updated 06/27/24 @ 16:56 by Kailee Parks PA-C) Bite from dog Paroxysmal atrial fibrillation (HFpEF) heart failure with preserved ejection fraction COPD (chronic obstructive pulmonary disease) CKD (chronic kidney disease) HLD (hyperlipidemia) HTN (hypertension) Afib CHF (congestive heart failure) Vitamin D deficiency Pulmonary nodules Osteoporosis Hyperparathyroidism Postoperative hypothyroidism History of thyroid cancer Surgical History History of biopsy History of parathyroidectomy History of total thyroidectomy History of bladder surgery Family History Father Hypertension Mother No problems noted. Social History Housing: Apartment Are you a primary respiratory care technician to a significant other at home: No Do you presently have visiting nurse or other home services: No Alcohol intake: never Patient Tobacco Use Status: Former Tobacco user Tobacco use type: Cigarette Years Smoked: 40 e-Cigarette/Vaping Use: Never Used Second Hand Smoke Exposure: Yes service: No Current occupational status: retired and disabled Cognitive needs: No Hearing needs: No Vision needs: Yes Questionnaire PHQ-9 Over the last 2 weeks, how often have you been bothered by any of the following problems? 1. Little interest or pleasure in doing things: not at all 2. Feeling down, depressed, or hopeless: not at all 3. Trouble falling or staying asleep, or sleeping too much: not at all 4. Feeling tired or having little energy: not at all 5. Poor appetite or overeating: not at all 6. Feeling bad about yourself - or that you are a failure or have let yourself or your family down: not at all 7. Trouble concentrating on things, such as reading the newspaper or watching television: not at all 8. Moving or speaking so slowly that other people could have noticed. Or the opposite - being so fidgety or restless that you have been moving around a lot more than usual: not at all 9. Thoughts that you would be better off or of hurting yourself in some way: not at all Total score: 0 Depression Screening Interpretation: Negative Depression Screening Done: Yes Source: Developed by Drs. Tyler Dash, Germaine Núñez, Jean Paul Lopez and colleagues, with an educational stephanie from [employer]. Thrive Questionnaire Date Thrive assessed: 06/27/24 I am a: Patient What is your living situation today?: I have a steady place to live Within the past 12 months, did the food you bought not last and you didn't have the money to get more?: Never true Within the past 12 months, did you worry whether your food would run out before you got money to buy more?: Never true Do you have trouble paying for medicines?: No Do you have trouble getting transportation to medical appointments?: No Do you have trouble paying your heating and electricity bill?: No Do you have trouble taking care of your child, family member or friend?: No Do you have trouble with day-to-day activities such as bathing, preparing meals, shopping, managing finances, etc.?: No Are you currently unemployed and looking for a job?: No Are you interested in more education?: No Please select the resources that you would like help with: None Currently or been in a relationship where the following occur: No concerns reported THRIVE Score: 0 AUDIT C Alcohol Use Questionnaire (AUDIT-C) 1. How often do you have a drink containing alcohol?: Never Total Score: 0 NIYAH-7 AMB Questionnaire NIYAH-7 Date NIYAH - 7 assessed: 06/27/24 Feeling nervous, anxious, or on edge: 0 = Not at all Not being able to stop or control worryin = Not at all Worrying too much about different things: 0 = Not at all Trouble relaxin = Not at all Being so restless that it is hard to sit still: 0 = Not at all Becoming easily annoyed or irritable: 0 = Not at all Feeling afraid as if something awful might happen: 0 = Not at all Total NIYAH-7 score (0-4 normal; 5-9 mild; 10-14 moderate; 15-21 severe): 0 Source: Developed by Drs. Tyler Dash, Jean Paul Vences and colleagues, with an educational stephanie from [employer]. Physical exam (Primary Care) Vital Signs: Last Vital Signs Temp 97.3 F 06/27/24 16:07 Pulse 71 01/27/25 16:07 BP 90/62 06/27/24 16:07 Pulse Ox 98 06/27/24 16:07 Oxygen Delivery Method Room Air 06/27/24 16:07 Care Plan Goal for BP management: <130/80 at goal BMI result Body Mass Index 23.3 Normal BMI Tobacco/Smoking Status: Tobacco use Status Tobacco use date assessed 06/27/24 06/27/24 16:14 Patient Tobacco Use Status Former Tobacco user 06/27/24 16:14 Tobacco use type Cigarette 06/27/24 16:14 e-Cigarette/Vaping Use Never Used 06/27/24 16:14 PHQ-9: PHQ-9 Score PHQ-9: Total score 0 06/27/24 16:14 Depression Screening Interpretation: Negative Thrive Assessment: Date of Thrive Assessment Date Thrive assessed 06/27/24 06/27/24 16:14 Currently or been in a relationship where the following occur: No concerns reported Coding Level of Care Code Est Pt Level 4 (95679) Complex EM visit Add On G2211 Diagnoses Paroxysmal atrial fibrillation I48.0 Simple chronic bronchitis J41.0 COPD type: chronic bronchitis Chronic bronchitis type: simple (HFpEF) heart failure with preserved ejection fraction I50.30 Hyperparathyroidism E21.3 Osteoporosis, unspecified osteoporosis type, unspecified pathological fracture presence M81.0 Osteoporosis type: unspecified Presence of current pathological fracture: unspecified Postoperative hypothyroidism E89.0 Vitamin D deficiency E55.9 Pulmonary nodules R91.8 HTN (hypertension) I10 CKD (chronic kidney disease) N18.9 HLD (hyperlipidemia) E78.5 Assessment & Plan Assessment & Plan (1) Paroxysmal atrial fibrillation: Code(s): I48.0 - Paroxysmal atrial fibrillation Category: Medical Plan: Patient is currently on Eliquis 2.5 mg p.o. b.i.d. taking as prescribed along with metoprolol 50 mg b.i.d. taking as prescribed. Condition is chronic and stable continue to monitor. (2) COPD (chronic obstructive pulmonary disease): Code(s): J44.9 - Chronic obstructive pulmonary disease, unspecified Category: Medical Qualifiers: COPD type: chronic bronchitis Chronic bronchitis type: simple Qualified Code(s): J41.0 - Simple chronic bronchitis Plan: Patient currently on albuterol and trelegy. Condition is chronic and stable continue to monitor. (3) (HFpEF) heart failure with preserved ejection fraction: Code(s): I50.30 - Unspecified diastolic (congestive) heart failure Category: Medical Plan: Patient is currently on furosemide 20 mg daily. There is no evidence of fluid overload on this exam. Condition is chronic and stable continue to monitor. (4) Hyperparathyroidism: Code(s): E21.3 - Hyperparathyroidism, unspecified Category: Medical Plan: Condition is chronic and stable will continue to monitor. (5) Osteoporosis: Code(s): M81.0 - Age-related osteoporosis without current pathological fracture Category: Medical Qualifiers: Osteoporosis type: unspecified Presence of current pathological fracture: unspecified Qualified Code(s): M81.0 - Age-related osteoporosis without current pathological fracture Plan: Condition is chronic and stable will continue to monitor. (6) Postoperative hypothyroidism: Code(s): E89.0 - Postprocedural hypothyroidism Category: Medical Plan: Condition is chronic and stable will continue to monitor. (7) Vitamin D deficiency: Code(s): E55.9 - Vitamin D deficiency, unspecified Category: Medical Plan: Condition is chronic and stable will continue to monitor. (8) Pulmonary nodules: Comment: MOLLY subsolid nodule. Irregular appearance. 1.5 spiculated nodule MOLLY Code(s): R91.8 - Other nonspecific abnormal finding of lung field Category: Medical Plan: Condition is chronic and stable will continue to monitor. (9) HTN (hypertension): Code(s): I10 - Essential (primary) hypertension Category: Medical Plan: Patient currently on metoprolol and furosemide taking as prescribed. Blood pressure at goal today. Condition is chronic and stable continue to monitor. (10) CKD (chronic kidney disease): Code(s): N18.9 - Chronic kidney disease, unspecified Category: Medical Plan: Condition is chronic and stable will continue to monitor. (11) HLD (hyperlipidemia): Code(s): E78.5 - Hyperlipidemia, unspecified Category: Medical Plan: Condition is chronic and stable will continue to monitor. Plan Plan - Continue management and monitoring of Atrial Fibrillation. - Encourage adherence to anticoagulation regimen following post-procedural guidance. - Reinforce importance of periodic cardiovascular assessments for stable atrial fibrillation control. - No further intervention warranted regarding throat polyp given the negative biopsy results. Patient Instructions: Patient Instructions - Continue taking Eliquis as prescribed. - Monitor for any new symptoms or changes in condition. - Follow up with regular cardiovascular check-ups. - No immediate need for concern regarding the throat biopsy results. Scribe Plan - Not visible on output: History of Present Illness The patient is an 84-year-old female presenting with a follow-up for Atrial Fibrillation and post-procedural evaluation for a throat polyp. Her son and son-in-law are at bedside. Her son only speaks [place] her son-in-law speaks [place]ian and Upper Sorbian. Patient only speaks [place]. The patient underwent a biopsy procedure on the of this month, and was subsequently referred for follow-up assessment. The patient had discontinued her anticoagulation medication (Eliquis) three days prior to the procedure and resumed it the same day of the procedure. Her thromboembolic risk requiring management after restarting the medication was a concern. Patient restarted her Eliquis same day after her surgery. The biopsy revealed a throat polyp which was excised and found to be negative for malignant cells. No immediate complications post-procedure have been noted, and the patient remains asymptomatic with a stable heart rate. Social History - Language: Patient speaks predominantly [place]ian. - Family: The patient?s grandson is involved in care considerations. Review of Systems - Cardiovascular: Reports management of Atrial Fibrillation. - ENT: Denies malignancy of throat polyp as confirmed by biopsy. Physical Exam Appearance: Alert. Oriented X3. No acute distress. Head: Normal external exam. Normocephalic. Atraumatic. Eyes: Pupils are equal, round, and reactive to light. Extraocular movements intact. Conjunctiva and sclera normal. Eyelids normal. Ears: External auditory canal normal. Throat: Pharynx normal. Uvula midline. Moist mucous membranes. Neck: Normal inspection. Neck supple. Full range of motion. No adenopathy. Thyroid Normal. No meningeal signs. No neck mass noted. Cardiovascular: Normal heart rate and rhythm. Heart sound normal. No murmurs noted. Pulses normal throughout. Respiratory: No respiratory distress. Painless inspiration. Breath sounds normal. No wheezes/rales/rhonchi noted. Chest nontender. No accessory muscle usage noted or decreased air movement noted. Back: Full range of motion noted. Skin: Skin warm and dry. Normal skin color. Normal skin turgor. No rashes/lesions/lacerations noted. Extremities: Extremities exhibit normal range of motion. Extremities nontender. Neuro: Oriented X 3. No motor deficit. No sensory deficit. Reflexes normal. Results - Biopsy of throat polyp: Negative for malignant cells Plan - Continue management and monitoring of Atrial Fibrillation. - Encourage adherence to anticoagulation regimen following post-procedural guidance. - Reinforce importance of periodic cardiovascular assessments for stable atrial fibrillation control. - No further intervention warranted regarding throat polyp given the negative biopsy results. Patient was informed and verbally consented to the use of an ambient scribe for clinic note documentation during this visit. Discussion Notes I discussed with the patient and her family the successful management of Atrial Fibrillation after resuming Eliquis. We reviewed the implications of her recent biopsy results, emphasizing the benign nature of the throat polyp post-excision. The necessity for continuing her prescribed anticoagulant was reiterated, alongside the importance of monitoring her cardiovascular health to prevent complications. Assurance was provided regarding the negative biopsy findings, and the patient was advised that no additional procedures were necessary at this time. We agreed to continue routine follow-ups to ensure ongoing stability in her condition. Patient Instructions - Continue taking Eliquis as prescribed. - Monitor for any new symptoms or changes in condition. - Follow up with regular cardiovascular check-ups. - No immediate need for concern regarding the throat biopsy results.
[2024-06-27 16:07] VITALS: BP 90/62; PULSE 71; TEMP 36.3; O2SAT 98; BMI 23.3
--- OUTSIDE RECORDS SUMMARY | 2024-06-27 19:41 | XMS_ITS | Clinical Summary ---
Author Organization [facility] Address [address] [place] [address] Phone Care Team Providers Care Bone Crusher Name Role Phone Pir CANDY Marks Primary Care Provider Unavailabl e Allergies Active Allergy Reactions Criticality Noted Date Comments Aspirin 03/11/2022 Other reaction(s): hives full body Bacitracin 03/11/2022 Other reaction(s): Allergic dermatitis Dipyridamole 03/11/2022 Other reaction(s): unknown Iodinated Contrast Media 03/11/2022 Other reaction(s): hives all over Medications ALBUTEROL IN Inhale 2 Active Fluticasone-Ume clidin-Vilant (TRELEGY ELLIPTA IN) Inhale 2 Active acetaminophen (Tylenol) 325 MG tablet Take 650 mg by mouth 9 Active apixaban (ELIQUIS) 2.5 MG tablet Take 2.5 mg by mouth 2 Active Calcium Citrate-Vitamin D 315-250 MG-UNIT tablet Take 2 tablets by mouth 0 Active mirtazapine (REMERON) 15 MG tablet Take 15 mg by mouth 2 Active pravastatin (PRAVACHOL) 20 MG tablet Take 20 mg by mouth 2 Active metoprolol tartrate (LOPRESSOR) 50 MG tablet Take 50 mg by mouth 2 Active methylPREDNISol one (Medrol) 4 MG tablet See Instructions, as directed on package labeling, # 1 pack/packet, 0 Refills, Maintenance, 01/20/22 9:41:00 EDT, Tablet, [facility], Partial fill upon patient request if the prescription is for a schedule II opioid drug., 147, cm, 01/20... 2 Active levothyroxine (SYNTHROID, LEVOTHROID) 75 MCG tablet Take 75 mcg by mouth 2 Active furosemide (LASIX) 20 MG tablet Take 20 mg by mouth 2 Active flecainide (TAMBOCOR) 50 MG tablet Take 50 mg by mouth 2 Active Active Problems Problem Noted Date Diagnosed Date Atrial fibrillation 03/11/2022 Chronic kidney disease stage 3 03/11/2022 Congestive heart failure 03/11/2022 H/O: infectious disease 03/11/2022 Hyperlipidemia 03/11/2022 Hypertensive disorder 03/11/2022 Overweight 03/11/2022 Osteoporosis 03/11/2022 Patient care statuses 03/11/2022 Social History Tobacco Use Types Packs/Day Years Used Date Smoking Tobacco: Former Cigarettes Smokeless Tobacco: Never Tobacco Cessation:Counseling Given: Not Answered Alcohol Use Standard Drinks/Week Comments Not Currently 0 (1 standard drink = 0.6 oz pur e alcohol) Comments Unknown Sex and Gender Information Value Date Recorded Sex Assigned at Not on file Legal Sex Female 2:06 PM EDT Gender Identity Not on file Sexual Orientation Not on file Plan of Treatment Health Maintenance Due Date Last Done Comments Influenza Vaccine (#1) 2024 Pneumococcal Vaccine: 65+ Years Completed 04/30/2017, 07/05/2015 Hepatitis B Vaccine Aged Out No longe r eligible based on patient's age to complete this topic Insurance [address] [place] [id number] [facility] ([id number]) [place] [id number] [facility] ([id number]) [place] [id number] Care Teams Bone Crusher Relationship Specialty Start Date End Date Pir Marks MD PCP - General Nephrology 03/11/22
--- OUTSIDE RECORDS SUMMARY | 2024-06-27 19:41 | XMS_ITS | Clinical Summary ---
Author Organization [address] Address [address] [place] [id number] Care Team Providers Care Production Supply Equipment Tender Name Role Phone Obtain, Unable To Primary Care Provider Unavaila ble Allergies Active Allergy Reactions Criticality Noted Date Comments Aspirin 06/20/2015 Medications No known medications Social History Tobacco Use Types Packs/Day Years Used Date Smoking Tobacco: Former Alcohol Use Standard Drinks/Week Comments No 0 (1 standard drink = 0.6 oz pur e alcohol) Comments Unknown Sex and Gender Information Value Date Recorded Sex Assigned at Not on file Legal Sex Female 8:58 PM EST Gender Identity Not on file Sexual Orientation Not on file Last Filed Vital Signs Vital Sign Reading Time Taken Comments Blood Pressure 142/93 06/20/2015 11:58 PM EST Pulse 80 06/20/2015 11:58 PM EST Temperature 36.9 ??C (98.5 ??F) 06/20/2015 11:[address] Respiratory Rate 18 06/20/2015 11:58 PM EST Oxygen Saturation 100% 06/20/2015 11:58 PM EST Inhaled Oxygen Concentration - - Weight 54.4 kg (120 lb) 06/20/2015 9:13 PM EST Height - - Body Mass Index - - Plan of Treatment Health Maintenance Due Date Last Done Comments HIV screening 1953 Tetanus adult (Td q 10,TDAP once) 1960 Lipid disorder screening 1980 Diabetes screening 1985 Shingles vaccine (Shingrix) (1 of 2 - Shingrix (RZV) 2 Dose Standard Series) 1990 Osteoporosis screening (bone density) 2005 Pneumo Vaccine 65+ (1 of 1 - PCV) 2005 RSV Discussion (1 - 1-dose 7 5+ series) 2015 Influenza vaccine 12/31/2023 Covid-19 vaccine series (2023- season) 2024 Breast cancer screening Discontinued Cervical cancer screening Discontinued Meningococcal Vaccine Aged Out No michelle tiffanie eligible based on patient's age to complete this topic Insurance MEDICARE MEDICARE MEDICARE MEDICARE Care Teams Production Supply Equipment Tender Relationship Specialty Start Date End Date Obtain, Unable To PCP - General 06/20/15
--- OUTSIDE RECORDS SUMMARY | 2024-06-27 19:41 | XMS_ITS | Clinical Summary ---
Author Organization [facility] Address [address] [place] [address] Phone Care Team Providers Care Vault Manager Name Role Phone Physician, No Pcp Primary Care Provider Unavaila ble Encounters Date Type Department Care Team Description 04/26/2024 10:01 AM EST - 04/26/2024 11:59 PM EST Hospital Encounter [facility] PET Scan [address] [place] [address] Discharge Disposition: Home or Self Care from Last 3 Months Social History Tobacco Use Types Packs/Day Years Used Date Smoking Tobacco: Never Assessed Sex and Gender Information Value Date Recorded Sex Assigned at Not on file Gender Identity Not on file Sexual Orientation Not on file Job Start Date Occupation Industry Not on file Not on file Not on file Plan of Treatment Health Maintenance Due Date Last Done Comments Zoster Vaccines (1 of 2) 1959 RSV Immunization Patients 60 + Years Old (1 - 1-dose 75+ series) 2015 COVID-19 Vaccine (3 - Modern a risk series) 11/27/2020 10/30/2020, 10/01/2020 Influenza Vaccine (#1) 2024 , 04/20/2018, 06/22/2015 Cholesterol Screening (Lipid Panel) 04/20/2024 Depression Screening 04/20/2024 Falls Risk Assessment 04/20/2024 Hypertension/CHF/CAD Annual BMP Blood Test 04/20/2024 Medicare Annual Wellness Visit 04/20/2024 Osteoporosis Screening (Bone Density Screening) 04/20/2024 Social Influencers of Health Screening 04/20/2024 DTaP,Tdap,and Td Vaccines (2 - Td or Tdap) 07/04/2025 07/04/2015 Pneumococcal Vaccine: 65+ Years Completed 07/06/2023, 04/30/2017, 07/05/2015 HIB Vaccines Aged Out No longer eligi ble based on patient's age to complete this topic HPV Vaccines Aged Out No longer eligi ble based on patient's age to complete this topic Hepatitis A Vaccines Aged Out No long er eligible based on patient's age to complete this topic Hepatitis B Vaccines Aged Out No long er eligible based on patient's age to complete this topic IPV Vaccines Aged Out No longer eligi ble based on patient's age to complete this topic MMR Vaccines Aged Out No longer eligi ble based on patient's age to complete this topic Meningococcal ACWY Vaccine Aged Out N o longer eligible based on patient's age to complete this topic RSV Immunization Patients Under 20 months Aged Out No longer eligible b ased on patient's age to complete this topic Varicella Vaccines Aged Out No longer eligible based on patient's age to complete this topic Procedures Procedure Name Priority Date/Time Associated Diagnosis Comments PET CT SKULL TO MID THIGH INITIAL Routine 04/26/2024 12:12 PM EST Solitary pulmonary nodule from Last 3 Months Results * PET CT Skull to Mid Thigh Initial (04/26/2024 12:12 PM EST) Anatomical Region Laterality Modality Body Radiographic Ginna ging 04/26/2024 1:54 PM EST Impressions 04/26/2024 2:00 PM EST Mild activity within biapical pulmonary nodules is nonspecific and neoplasia cannot be excluded. Chronic inflammatory process can have a similar appearance. Biopsy of the left apical nodule but difficult secondary to patient's kyphosis causing a high position of the superior segment of the left lower lobe. Consider bronchoscopy for further evaluation. -------- FINAL REPORT -------- Dictated By: Anil Acevedo Dictated Date: 04/26/2024 13:54 ET Assigned Physician: Anil Acevedo Reviewed and Electronically Signed By: Anil Acevedo Signed Date: 04/26/2024 14:00 ET Workstation ID: [id number] Transcribed By: Self Edit Transcribed Date: 04/26/2024 13:54 ET Narrative 04/26/2024 2:00 PM EST INDICATION: Pulmonary nodules, thyroid carcinoma Prior relevant studies: Outside chest CT dated August 18, 2023 Radiopharmaceutical: 12.8 mCi of F-18 FDG IV. Blood glucose: 99 mg/dl. PROCEDURE: Routine body FDG PET-CT imaging was performed from the skull base to the proximal/mid thighs and reconstructed in axial, coronal, and sagittal planes at the computer workstation with fused data from both the PET imaging study and attenuation correction CT. The CT portion of the examination was done strictly for attenuation correction and is not a true diagnostic CT examination. CTDI: 13.74 mGy FINDINGS: HEAD AND NECK: No abnormal FDG activity. THORAX: Mild activity associated with biapical pulmonary nodules. Irregular shaped solid nodule in left lung apex with spiculated appearance demonstrated SUV max up to 2.5. Mild activity associated with small solid nodule in the superior segment of the left lower lobe with SUV max of 1.2. Mild activity associated with groundglass nodules in the right lung apex with SUV max of 1.4. No FDG avid thoracic nodes. ABDOMEN/PELVIS: No abnormal FDG activity. MUSCULOSKELETAL: No abnormal FDG activity. Procedure Note Anil Acevedo MD - 04/26/2024 INDICATION: Pulmonary nodules, thyroid carcinoma Prior relevant studies: Outside chest CT dated August 18, 2023 Radiopharmaceutical: 12.8 mCi of F-18 FDG IV. Blood glucose: 99 mg/dl. PROCEDURE: Routine body FDG PET-CT imaging was performed from the skullbase to the proximal/mid thighs and reconstructed in axial, coronal, andsagittal planes at the computer workstation with fused data from both thePET imaging study and attenuation correction CT. The CT portion of theexamination was done strictly for attenuation correction and is not a truediagnostic CT examination. CTDI: 13.74 mGy FINDINGS: HEAD AND NECK: No abnormal FDG activity. THORAX: Mild activity associated with biapical pulmonary nodules.Irregular shaped solid nodule in left lung apex with spiculated appearancedemonstrated SUV max up to 2.5. Mild activity associated with small solidnodule in the superior segment of the left lower lobe with SUV max of 1.2.Mild activity associated with groundglass nodules in the right lung apexwith SUV max of 1.4. No FDG avid thoracic nodes. ABDOMEN/PELVIS: No abnormal FDG activity. MUSCULOSKELETAL: No abnormal FDG activity. IMPRESSION: Mild activity within biapical pulmonary nodules is nonspecific andneoplasia cannot be excluded. Chronic inflammatory process can have asimilar appearance. Biopsy of the left apical nodule but difficultsecondary to patient's kyphosis causing a high position of the superiorsegment of the left lower lobe. Consider bronchoscopy for furtherevaluation. -------- FINAL REPORT -------- Dictated By: Anil Acevedo Dictated Date: 04/26/2024 13:54 ET Assigned Physician: Anil Acevedo Reviewed and Electronically Signed By: Anil Acevedo Signed Date: 04/26/2024 14:00 ET Workstation ID: [id number] Transcribed By: Self Edit Transcribed Date: 04/26/2024 13:54 ET Josh Colby MD IMG NM PROCEDURES from Last 3 Months Care Teams Vault Manager Relationship Specialty Start Date End Date Physician, No Pcp PCP - General 04/25/24
== END 2024-06-27 16:42 | disposition home or self-care (01) ==
PROVIDERS: PCP Internal Medicine; Visit Provider Physician Assistant Medical
DX: I48.0 Paroxysmal atrial fibrillation (principal); J41.0 Simple chronic bronchitis; I50.30 Unspecified diastolic (congestive) heart failure; E21.3 Hyperparathyroidism, unspecified; M81.0 Age-related osteoporosis without current pathological fracture; E89.0 Postprocedural hypothyroidism; E55.9 Vitamin D deficiency, unspecified; R91.8 Other nonspecific abnormal finding of lung field; I12.9 Hypertensive chronic kidney disease with stage 1 through stage 4 chronic kidney disease, or unspecified chronic kidney disease; N18.9 Chronic kidney disease, unspecified; E78.5 Hyperlipidemia, unspecified

== ENCOUNTER → 2024-06-27 15:57 | Outpatient (BNVA) | payer MEDICARE, MEDICAID, SELFPAY | PROVIDERS: PCP Internal Medicine; Visit Provider Physician Assistant Medical | DX: I48.0 Paroxysmal atrial fibrillation (principal); J41.0 Simple chronic bronchitis; E21.3 Hyperparathyroidism, unspecified; I13.0 Hypertensive heart and chronic kidney disease with heart failure and stage 1 through stage 4 chronic kidney disease, or unspecified chronic kidney disease; N18.9 Chronic kidney disease, unspecified; I50.30 Unspecified diastolic (congestive) heart failure; M81.0 Age-related osteoporosis without current pathological fracture; E89.0 Postprocedural hypothyroidism; E55.9 Vitamin D deficiency, unspecified; R91.8 Other nonspecific abnormal finding of lung field; E78.5 Hyperlipidemia, unspecified | CPT/HCPCS: 99212 ==

== ENCOUNTER 2024-07-28 15:28 | Outpatient (AMB) | payer MEDICARE, MEDICAID, SELFPAY ==
--- NOTE | 2024-07-28 15:58 | AM.OFFVISMDC ---
Intake Vital Signs 07/28/24 15:59 Height 5 ft Weight 120 lb 8 oz BMI 23.5 BP 112/68 Blood Pressure Location Lt brachial Position Sitting Pulse 68 Pulse Source Pulse Oximeter Temp 97.4 F Temp Source Temporal Artery Scan Pulse Oximetry (%) 94 Oxygen Delivery Method Room Air Intake Visit Reasons: AWV G0439 Intake Note: Patient is here for an Annual Wellness Visit. Day Care Center Director Required: Yes Day Care Center Director Language: Huller Operator Services: Day Care Center Director Present Day Care Center Director Name: Dominick (Thony-jackelyn) Information Interpreted: non-clinical & clinical (pt decline microbiology lab assistant service prefer son inlaw to microbiology lab assistant) Labor Contractor: Labor Contractor Present Accompanied by: Family/Other Allergies levofloxacin Allergy (Intermediate, Verified 07/28/24 16:59) Dizziness aspirin Allergy (Mild, Verified 07/28/24 16:59) Rash dipyridamole [From Persantine] Allergy (Mild, Verified 07/28/24 16:59) Rash Iodinated Contrast Media [IV Contrast Dye] Allergy (Unknown, Verified 07/28/24 16:59) Unknown Medication List - Last Reconciled 07/28/24 by Kailee Parks PA-C albuterol sulfate 2.5 mg (3 mL) inhalation Q8H PRN albuterol sulfate 2.5 mg (3 mL) inhalation Q6H PRN 30 days albuterol sulfate 90 mcg/actuation 2 inhalations inhalation Q6H PRN 30 days apixaban (Eliquis) 2.5 mg PO BID 90 days calcium citrate-vitamin D3 315 mg-6.25 mcg (250 unit) 2 tabs PO BID 30 days cholecalciferol (vitamin D3) 50 mcg PO DAILY 30 days denosumab 60 mg subcut [id number] kencajggham-odexwjkxn-djvmwkwl 200-62.5-25 mcg (Trelegy Ellipta) 1 inh inhalation DAILY 30 days furosemide 20 mg PO DAILY 90 days levothyroxine 88 mcg PO DAILY metoprolol tartrate 50 mg PO BID 90 days mirtazapine 15 mg PO BEDTIME 90 days HPI HPI Comments History of Present Illness Details Patient is here for an Annual Wellness Visit today. List of all patient's Health Care Provider's PCP Dr. Bowman Cannon Crewmember Dr. Scales Community Support Associate Dr. Garcia Before School Dr. Josh Colby Reviewed past medical history- yes Reviewed surgical / hospitalization history- yes Reviewed family history- yes Reviewed current medications- yes Review all current providers patient is actively being followed by- yes Risk Factors Do exercise? Patient does daily walk How many days per week? Daily Minutes per episode question? 5-10 minute walk Do Pt fross regularly? No Do go to the dentist yearly? no she needs a dentist or every 6 months? no Do use a seatbelt in the vehicle? yes Sexual health: Do you use protection such as condom's? Patient is not sexually active at this time Do you use Control? No Home safety Throw rugs? No Grab bars? One shower Raised toilet seat? No; but patient has a chair in the shower to sit down while she was showering. Patient has a diaz potty although she does not use this regularly Working smoke detectors? yes Activities of daily living Do you have urinary incontinence? no Difficulty bathing or showering? Son helps shower and bathe mother ?Difficulty dressing??Son helps shower and bathe mother ?Difficulty grooming? Son helps shower and bathe mother ?Difficulty feeding myself? Self feed ?Difficulty using the toilet??No help required ?Difficulty getting in and out of bed?? Patient sleeps in a couch due to 1 bedroom apartment and has not been given a 2 bedroom apartment ?Difficulty walking? Patient uses a wheelchair ?Receives help from other person's with any of the above tasks?? Yes her son who she resides with Instrumental activities of daily living Uses telephone -?patient able to use telephone on her own ?Gets to place out of walking distance- no patient does not go out of walking distance she is always with her son and her son-in-law ?Who does the Food preparation?? Son and son-in-law ?Who goes shopping for groceries? Son and son-in-law ?Can perform minor home maintenance-?son and son-in-law ?Can perform own laundry-?son and son-in-law ?Can perform own housework-son and son-in-law ?Manages own money/Finances-?patient able to manage her own money and finances ?Transportation?? She is usually transported with her son and son-in-law ?Do you Drive?? Patient does not drive ?Do you Drive at Night?? Patient does not drive ?Can you Manage own medications? Son monitors patient while she takes her medications although patient is able to manage her own medications and take her own medication If you can not manage your own medications, who does manage your medications?? See above Fall risk assessment Fall risk? Yes Have you had any falls with injuries in the past year? Once in the past year 3 times in the past 3 year Have you had 2 or more falls in the past year? No Fall risk assessment: low fall risk Visit History Last Wellness Visit: Date? If diabetic, last diabetic eye exam: Date? Patient does not have diabetes Last hospitalization: If any? Patient has not been hospitalized Additonal Services needed/Case Management Referrals? Social? Patient needs referral for housing situation at this time she is sleeping on a couch due to 1 bedroom apartment and has been on a waiting list for approximately 2 years Financial? Patient does not need any help for finances Medical referrals? Patient does not need any medical referrals she will follow-up with a dentist and an pharmacy informaticist as needed Education? Asthma? Yes currently on albuterol and other treatments see medications chart COPD? Yes currently on albuterol and other treatments see medications chart Diabetes? No patient does not have diabetes Medication management? Patient does not need any education with medication management Cognitive Exam 1. Repeat Words- I am going to say 3 words that I want to to remember later. - The words are banana, sunrise, chair. Please say them now. carrot, peso, armadillo (Give the patient 3 tries to repeat the words. You may repeat the words to them for each try. If they are unable to repeat the words back to after 3 times, go directly to the clock drawing) 2. Ask person to draw a clock. - 2 points for a normal clock or 0 points for an abnormal clock drawing - Please draw a clock and a [place]. - Put all the numbers in the [place]. It is acceptable to provide a she of paper with the lower [place] already drawn for the person) - When #2 is completed, say, Now set the hands to show ten past eleven. 3. Ask person to recall the 3 words - 1 point for each word correctly recalled without prompt - You will be asking to person to recall the set of 3 words he gave them at the beginning of the test. - Say What were the three words I asked you to remember? Recall Score: 0-3 scoring - 1 point for each word correctly recalled without prompt Clock Drawin-2 scoring - 2 points for a normal clock or 0 points for abnormal clock drawing - a normal clock must include all numbers (1-12), each only once, in the correct order and directions (clockwise) - there must also be to hands present, 1 point into the 11 and 1 pointing to 2. Add the 3-item recall ad clock drawing score together. Total Score of 2 indicates higher likelihood of clinical important incontinence impairment referral/follow-up required Total Score of 3-5 indicates lower likelihood of dementia but does not rule out some degree of cognitive impairment Patient's Total Score Today: Patient was able to repeat all 3 words. She was able to draw a clock properly and put all numbers in the lower [place] and was able to draw 10 pass 11. She was able to recall all 3 words. Cognitive Status is Normal End of life planning Discussed advanced directives- Yes son is the patient's healthcare proxy. Patient is full code Member did not wish to discuss above? No Advanced directives on file? Patient is full code and on file Discussed wishes expressed in advanced directives? Patient would like to be full code Encouraged member to inform others about care preferences. [facility] Medical History (Updated 07/28/24 @ 17:03 by Kailee Parks PA-C) Encounter for Medicare annual wellness exam Bite from dog Paroxysmal atrial fibrillation (HFpEF) heart failure with preserved ejection fraction COPD (chronic obstructive pulmonary disease) CKD (chronic kidney disease) HLD (hyperlipidemia) HTN (hypertension) Afib CHF (congestive heart failure) Vitamin D deficiency Pulmonary nodules Osteoporosis Hyperparathyroidism Postoperative hypothyroidism History of thyroid cancer Surgical History History of biopsy History of parathyroidectomy History of total thyroidectomy History of bladder surgery Family History Father Hypertension Mother No problems noted. Social History Housing: Apartment Are you a primary long term care pharmacist to a significant other at home: No Do you presently have visiting nurse or other home services: No Alcohol intake: never Patient Tobacco Use Status: Former Tobacco user Tobacco use type: Cigarette Years Smoked: 40 e-Cigarette/Vaping Use: Never Used Second Hand Smoke Exposure: Yes service: No Current occupational status: retired and disabled Cognitive needs: No Hearing needs: No Vision needs: Yes Questionnaire Medicare Wellness Checkup What is your age?: 80 or older What gender do you identify with?: female During the past 4 weeks, how much have you been bothered by emotional problems such as feeling anxious, depressed, irritable, sad or downhearted, and blue?: not at all During the past 4 weeks, has your physical & emotional health limited your social activities with family, friends, neighbors, or groups?: not at all During the past 4 weeks, how much bodily pain have you generally had?: very mild pain During the past 4 weeks, was someone available to help you if you needed & wanted help?: no, not at all During the past 4 weeks, what was the hardest physical activity you could do for at least 2 minutes?: heavy Can you get to places out of walking distance without help? (For eg., can you travel alone on buses, taxis or drive your car?): No Can you go shopping for groceries or clothes without someone's help?: No Can you prepare your own meals?: Yes Can you do your housework without help?: No Because of any health problems, do you need the help of another person with your personal care needs such as eating, bathing, dressing or getting around the house?: No Can you handle your own money without help?: Yes During the past 4 weeks, how would you rate your health in general?: good During the past 4 weeks how have things been going for you?: pretty well Are you having difficulties driving your car?: not applicable, I don't use a car Do you always fasten your seat belt when you are in a car?: yes, usually During past 4 weeks, have you been bothered by the following: never: Sexual problems?, Teeth or denture problems? and Problems using the telephone?, seldom: Trouble eating well? and sometimes: Falling or dizzy when standing up and Tiredness or fatigue? Have you fallen 2 or more times in the past year?: Yes Are you afraid of falling?: Yes Are you a smoker?: no During the past 4 weeks, how many drinks of wine, beer, or other alcoholic beverages did you have?: no alcohol at all Do you exercise for about 20 minutes 3 or more times a week?: no, I usually do not exercise this much Have you been given information to help with the following?: yes: Keeping track of your medications? and no: Hazards in your house that might hurt you? How often do you have trouble taking medicines the way you have been told to take them?: I always take medicine as prescribed How confident are you that you can control & manage most of your health problems?: very confident What is your race?: or origin or descent Mini Mental State Exam (MMSE) Orientation What is the (year) (season) (date) (day) (month)?: year (2024), season (winter), date, day () and month (jul) Where are we (state) (county) (town or city) (hospital) (floor)?: state ([facility]) Registration Name of 3 unrelated objects clearly and slowly, then ask patient to repeat all 3 of them. (1st repeat determines score. Make sure they can repeat all three): object 1, object 2 and object 3 Attention & Calculation (CHOOSE ONE) Ask pt to begin with 100 & count backward by 7. Stop after 5 repeats. If pt cannot ask them to spell the word WORLD backward.: 93 Spell WORLD backwards (DLROW): 4 letters Recall Ask patient to repeat the 3 items from question #3.: object 1, object 2 and object 3 Language Show patient a wristwatch & ask what it is. Repeat for pencil.: watch Ask the patient to repeat the phrase 'No ifs, ands, or buts' after you.: correct Ask the patient to 'take a piece of paper with their right hand' 'fold paper in half' 'place paper on floor': take paper in right hand, fold paper in half and place paper on floor Print the sentence 'CLOSE YOUR EYES' on a piece. If patient actually closes eyes then score.: followed written direction Give patient a blank piece of paper & ask to write a sentence. Score if it contains a noun & verb.: sentence contains subject and verb Ask patient to copy figure of intersecting pentagons exactly. Score if all 10 angles & 2 intersects are included.: all 10 angles present & 2 are intersected Score Score: 25 Activity of Daily Living Bathing - sponge bath, tub bath or shower: receives help in bathing only one body part (such as back or leg) Dressing - getting clothes from closets & drawers, including inner/outer garments & fasteners.: gets clothes & gets dressed without help, except for help tying shoes Toileting - going to the 'toilet room' for urine/bowel elimination & cleaning self/arranging clothes: receives help going to toilet room, cleaning self or arranging clothes Transfer: moves in & out of bed and chair without help (may use support object) Continence: controls urination/bowel movements completely by self Feeding: feeds self without help Total Score: 0 Information obtained from: patient Using telephone: independent Traveling: needs assistance Shopping: needs assistance Preparing meals: needs assistance Housework: needs assistance Taking medicine: independent Managing money: independent PHQ-9 Over the last 2 weeks, how often have you been bothered by any of the following problems? 1. Little interest or pleasure in doing things: not at all 2. Feeling down, depressed, or hopeless: not at all 3. Trouble falling or staying asleep, or sleeping too much: nearly every day 4. Feeling tired or having little energy: not at all 5. Poor appetite or overeating: not at all 6. Feeling bad about yourself - or that you are a failure or have let yourself or your family down: not at all 7. Trouble concentrating on things, such as reading the newspaper or watching television: not at all 8. Moving or speaking so slowly that other people could have noticed. Or the opposite - being so fidgety or restless that you have been moving around a lot more than usual: not at all 9. Thoughts that you would be better off or of hurting yourself in some way: not at all Total score: 3 Depression Screening Interpretation: Positive Depression Screening Done: Yes 13364 - PHQ-9 Billing: Yes (This is only because the patient sleeps during the day. She does not feel like she needs any sleep medication at this time and son and son-in-law at bedside agree with this.) Source: Developed by Drs. Tyler Dash, Germaine Núñez, Jean Paul Lopez and colleagues, with an educational stephanie from [employer]. Thrive Questionnaire Date Thrive assessed: 06/27/24 NIYAH-7 AMB Questionnaire NIYAH-7 Date NIYAH - 7 assessed: 06/27/24 Source: Developed by Drs. Tyler Dash, Germaine Núñez, Jean Paul Lopez and colleagues, with an educational stephanie from [employer]. Review of Systems Const All systems reviewed & are unremarkable except as noted in HPI and below Physical Exam Vital Signs: Last Vital Signs Temp 97.4 F 07/28/24 15:59 Pulse 68 07/28/24 15:59 BP 112/68 07/28/24 15:59 Pulse Ox 94 07/28/24 15:59 Oxygen Delivery Method Room Air 07/28/24 15:59 BMI result Body Mass Index 23.5 HEENT Other: Hearing screening Whisper test- passed Eyes Other: vision screening- Other: urinary incontinence? No Neuro Other: balance- patient able to perform normally without any difficulty Romberg- patient able to perform normally without any difficulty tandem walk test- patient able to perform without any difficulty walk-in turned test- patient able to perform without any difficulty rise from sit to stand- patient able to perform without using the chair to stand up Assessment & Plan Assessment & Plan (1) HTN (hypertension): Code(s): I10 - Essential (primary) hypertension Plan: Patient currently on metoprolol 50 mg p.o. b.i.d. and furosemide 20 mg daily taking as prescribed. Blood pressure at goal today. Condition is chronic and stable continue to monitor. (2) CKD (chronic kidney disease): Code(s): N18.9 - Chronic kidney disease, unspecified Plan: Condition is chronic and stable will continue to monitor. (3) HLD (hyperlipidemia): Code(s): E78.5 - Hyperlipidemia, unspecified Plan: Condition is chronic and stable will continue to monitor. (4) COPD (chronic obstructive pulmonary disease): Code(s): J44.9 - Chronic obstructive pulmonary disease, unspecified Qualifiers: COPD type: chronic bronchitis Chronic bronchitis type: simple Qualified Code(s): J41.0 - Simple chronic bronchitis Plan: Patient has albuterol inhalers and Trelegy Ellipta. Condition is chronic and stable continue to monitor. (5) Paroxysmal atrial fibrillation: Code(s): I48.0 - Paroxysmal atrial fibrillation Plan: Patient currently on Eliquis 2.5 mg p.o. b.i.d.. Condition is chronic and stable continue to monitor. (6) (HFpEF) heart failure with preserved ejection fraction: Code(s): I50.30 - Unspecified diastolic (congestive) heart failure Plan: Patient currently on furosemide 20 mg daily. Condition is chronic and stable will continue to monitor. (7) Vitamin D deficiency: Code(s): E55.9 - Vitamin D deficiency, unspecified Plan: Patient currently on vitamin-D supplement daily 50 mcg. Condition is chronic and stable continue to monitor. (8) Pulmonary nodules: Comment: MOLLY subsolid nodule. Irregular appearance. 1.5 spiculated nodule MOLLY Code(s): R91.8 - Other nonspecific abnormal finding of lung field Plan: Condition is chronic and stable continue to monitor. (9) Osteoporosis: Code(s): M81.0 - Age-related osteoporosis without current pathological fracture Qualifiers: Osteoporosis type: unspecified Presence of current pathological fracture: unspecified Qualified Code(s): M81.0 - Age-related osteoporosis without current pathological fracture Plan: Patient currently on calcium citrate/vitamin D condition is chronic and stable continue to monitor. (10) Hyperparathyroidism: Code(s): E21.3 - Hyperparathyroidism, unspecified Plan: Patient currently on levothyroxine 88 mcg daily. Condition is chronic and stable continue to monitor. (11) Postoperative hypothyroidism: Code(s): E89.0 - Postprocedural hypothyroidism Plan: Patient currently on levothyroxine 88 mcg daily. Condition is chronic and stable continue to monitor. (12) History of thyroid cancer: Code(s): Z85.850 - Personal history of malignant neoplasm of thyroid Plan: Patient currently on levothyroxine 88 mcg daily. Condition is chronic and stable continue to monitor. (13) Encounter for Medicare annual wellness exam: Code(s): Z00.00 - Encounter for general adult medical examination without abnormal findings Plan: Patient has a normal annual wellness exam today. She will need social assistance in her home she is currently sleeping on a couch. She is on a waiting list for 2 bedroom apartment for the past 2 years. She is currently living with her son and her son's boyfriend. Plan Plan The assessment and planning session underscored addressing the patient?s multifactorial insomnia with environmental and lifestyle interventions. As discussed, housing support from community resources could represent a pivotal change, potentially improving her sleep quality. Engagement with director social for this purpose was agreed upon. Continuing vitamin D supplementation to remedy a clear deficiency was suggested to complement her osteoporosis and arthritis management. Assessment considered the lack of psychiatric therapy or medication for dementia-related symptoms, although no urgent changes were initiated without specialized acknowledgment. Monitoring hypertension via diagnostics and regular blood work was reasserted, maintaining the current patient-driven adherence. While no immediate medical referrals were prescribed, the potential utility of ophthalmology and dental consultations was noted. Orders: Orders Hemoglobin A1c Today Z00.00 - Encounter for general adult medical examination without abnormal findings Magnesium Today Z00.00 - Encounter for general adult medical examination without abnormal findings Vitamin B1 Today Z00.00 - Encounter for general adult medical examination without abnormal findings Vitamin B12 and Folate Today Z00.00 - Encounter for general adult medical examination without abnormal findings Vitamin D 25-OH Total Today Z00.00 - Encounter for general adult medical examination without abnormal findings Patient Instructions: Patient Instructions - Continue your current medication regimen as discussed. - Schedule routine blood work as outlined for comprehensive monitoring. - Explore housing assistance resources with community support; prioritize comfortable sleeping arrangements. - Maintain daily movement such as short walks, ensuring adequate safety measures. - Follow up on scheduling ophthalmology and dental appointments. - Engage in nonpharmacological interventions for insomnia, like creating a daytime activity schedule to regulate sleep patterns. - Monitor dietary calcium and vitamin D intake, align with the routine endocrinology visit. - Revisit in-clinic after three months, or sooner if there are acute concerns. Quality Reporting (2019) Depression/Bipolar (159/160/161/177) PHQ-9: Total score: 3 Coding Level of Care Code Medicare Subsequent (G0439) Est Pt Level 4 (23537) Diagnoses HTN (hypertension) I10 CKD (chronic kidney disease) N18.9 HLD (hyperlipidemia) E78.5 Simple chronic bronchitis J41.0 COPD type: chronic bronchitis Chronic bronchitis type: simple Paroxysmal atrial fibrillation I48.0 (HFpEF) heart failure with preserved ejection fraction I50.30 Vitamin D deficiency E55.9 Pulmonary nodules R91.8 Osteoporosis, unspecified osteoporosis type, unspecified pathological fracture presence M81.0 Osteoporosis type: unspecified Presence of current pathological fracture: unspecified Hyperparathyroidism E21.3 Postoperative hypothyroidism E89.0 History of thyroid cancer Z85.850 Encounter for Medicare annual wellness exam Z00.00 Additional Codes PHQ-9 - 31175 - PHQ-9 Billing: Yes ([id number]) Time Spent (min) 40
[2024-07-28 15:59] VITALS: BP 112/68; PULSE 68; TEMP 36.3; O2SAT 94; BMI 23.5
--- OUTSIDE RECORDS SUMMARY | 2024-07-28 18:47 | XMS_ITS | Clinical Summary ---
Author Organization [facility] Address [address] [place] [address] Phone Care Team Providers Care Mechanotherapist Name Role Phone Pir CANDY Marks Primary [...] 0 Refills, Maintenance, 01/20/22 9:41:00 EDT, Tablet, [facility], Partial fill upon patient request [...] patient's age to complete this topic Insurance [id number] [place] [id number] [facility] ([id number]) DOROTHY WOOTEN [id number] [facility] ([id number]) D[place]OTHY WOOTEN [id number] Care Teams Mechanotherapist Relationship Specialty Start Date End Date Pir Marks MD PCP - General Nephrology 03/11/22
--- OUTSIDE RECORDS SUMMARY | 2024-07-28 18:47 | XMS_ITS | Clinical Summary ---
Author Organization [facility] Address [address] [place] [address] Phone Care Team Providers Care Dye Blender Name Role Phone Physician, No Pcp Primary Care Provider Unavaila ble Social History Tobacco Use Types Packs/Day Years Used Date Smoking Tobacco: Never Assessed Comments Unknown Sex and Gender Information Value Date Recorded Sex Assigned at Not on file Legal Sex Female 3:38 PM EST Gender Identity Not on file [...] Td or Tdap) 07/04/2025 07/04/2015 Pneumococcal Vaccine: 50+ Years Completed 07/06/2023, 04/30/2017, 07/05/2015 HIB Vaccines [...] patient's age to complete this topic Meningococcal B Vacine Aged Out No lo nger eligible based on patient's age to complete this topic RSV Immunization Patients Under 20 months Aged Out No longer eligible b ased on patient's age to complete this topic Varicella Vaccines Aged Out No longer eligible based on patient's age to complete this topic Insurance MEDICARE MEDICAID - [place] Care Teams Dye Blender Relationship Specialty Start Date End Date Physician, No Pcp PCP - General 04/25/24
--- OUTSIDE RECORDS SUMMARY | 2024-07-28 18:47 | XMS_ITS | Clinical Summary ---
Author Organization [address] Address [address] [place] [id number] Care Team Providers Care Supervisor Cured Meats Name Role Phone Obtain, Unable To Primary [...] Series) 1990 Osteoporosis screening (bone density) 2005 Pneumococcal Vaccine (50+ ye ars) (1 of 1 - PCV) 2005 RSV Discussion (1 - 1-dose 7 5+ series) 2015 Influenza vaccine 12/31/2023 Covid-19 vaccine series (2023- season) 2024 Breast cancer screening Discontinued Cervical cancer screening Discontinued Meningococcal Vaccine Aged Out No michelle tiffanie eligible based on patient's age to complete this topic Insurance MEDICARE MEDICARE MEDICARE MEDICARE Care Teams Supervisor Cured Meats Relationship Specialty Start Date End Date Obtain, Unable To PCP - General 06/20/15
== END 2024-07-28 16:48 | disposition home or self-care (01) ==
PROVIDERS: PCP Internal Medicine; Visit Provider Physician Assistant Medical
DX: Z00.00 Encounter for general adult medical examination without abnormal findings (principal); I12.9 Hypertensive chronic kidney disease with stage 1 through stage 4 chronic kidney disease, or unspecified chronic kidney disease; N18.9 Chronic kidney disease, unspecified; J41.0 Simple chronic bronchitis; I48.0 Paroxysmal atrial fibrillation; I50.30 Unspecified diastolic (congestive) heart failure; E21.3 Hyperparathyroidism, unspecified; E78.5 Hyperlipidemia, unspecified; E55.9 Vitamin D deficiency, unspecified; R91.8 Other nonspecific abnormal finding of lung field; M81.0 Age-related osteoporosis without current pathological fracture; E89.0 Postprocedural hypothyroidism; Z85.850 Personal history of malignant neoplasm of thyroid

== ENCOUNTER → 2024-07-28 15:28 | Outpatient (BNVA) | payer MEDICARE, MEDICAID, SELFPAY | PROVIDERS: PCP Internal Medicine; Visit Provider Physician Assistant Medical | DX: Z00.00 Encounter for general adult medical examination without abnormal findings (principal); I13.0 Hypertensive heart and chronic kidney disease with heart failure and stage 1 through stage 4 chronic kidney disease, or unspecified chronic kidney disease; N18.9 Chronic kidney disease, unspecified; I50.30 Unspecified diastolic (congestive) heart failure; E78.5 Hyperlipidemia, unspecified; J41.0 Simple chronic bronchitis; I48.0 Paroxysmal atrial fibrillation; E55.9 Vitamin D deficiency, unspecified; R91.8 Other nonspecific abnormal finding of lung field; M81.0 Age-related osteoporosis without current pathological fracture; E21.3 Hyperparathyroidism, unspecified; E89.0 Postprocedural hypothyroidism; Z85.850 Personal history of malignant neoplasm of thyroid | CPT/HCPCS: 96127; 99212 ==

== ENCOUNTER 2024-08-01 10:22 | Outpatient (AMB) | payer MEDICARE, MEDICAID, SELFPAY ==
--- NOTE | 2024-08-01 10:24 | A.OFFVIS_ITS ---
Vital Signs 08/01/24 10:25 Height 5 ft BMI Reason not done Patient refused/unable BP 116/54 L Blood Pressure Location Lt brachial Position Sitting Pulse 111 H Pulse Source Pulse Oximeter Pulse Oximetry (%) 95 Oxygen Delivery Method Room Air Intake Visit Reasons: S/P Bronch/COPD Allergies levofloxacin Allergy (Intermediate, Verified 08/01/24 10:29) Dizziness aspirin Allergy (Mild, Verified 08/01/24 10:29) Rash dipyridamole [From Persantine] Allergy (Mild, Verified 08/01/24 10:29) Rash Iodinated Contrast Media [IV Contrast Dye] Allergy (Unknown, Verified 08/01/24 10:29) Unknown HPI Comments Details: The patient is a 84-year-old woman with a known history of COPD. She was a former smoker. She has been noticing worsening respiratory symptoms with ongoing shortness of breath and cough. She only has a short-acting beta agonist that she uses numerous times a day. Her family becomes concerned because they feel that she is over using her rescue medication. She also has a nebulizer machine although does not have any medicine for. She was admitted last time to [facility]. There she did have a CT scan of the chest demonstrating a spiculated nodular density of concern. She also had emphysematous changes. She did follow-up with thoracic surgery at some point in did have a PET scan ordered. Apparently the PET scan department has been trying to schedule them an appointment and [facility] have not been able to do so. Therefore, we given the numbers for them to call and make arrangements for the PET scan as if this is very important. She already had pulmonary function studies on August and she will be following up with thoracic surgery. She did have a PET scan demonstrating significant FDG activity in the thyroid gland in addition to cervical lymphadenopathy with avid activity. She also had multiple pulmonary nodules some smaller than the accuracy of the PET scan and others for larger with some it activity. Cannot rule out metastatic disease. The patient did have a biopsy of her thyroid gland was positive for malignancy. She will follow-up with her cloth inspector about this. She does not know the results. I did talk to her family about it. Explained to them that I am concerned that indeed the findings on the CT scan of the chest and PET scan could all be all related to the thyroid. At this point the patient will be following up with endocrinology and then subsequently Oncology. Will have to follow closely this pulmonary nodules. In the meantime the patient did not start her respiratory inhaler. Will have her start trerely. 01/06/2020 the patient has a telephone visit. Overall she is doing well from a respiratory status. She understands she also has pulmonary nodules over following. She continues use the trelegy inhaler. Has not required a short- acting beta agonist. She understands that will following the nodules but patient has not had her CT scan just yet. Initially she was not leaving the house brice use of the COVID-19 infections. At this point the patient needs to have her CT scan of the chest to make sure that the nodules are not getting any worse. Specially with a history of thyroid cancer. 04/18/2020 the patient has a telephone visit today. Overall the patient has been doing well. She denies any coughing or weight loss or night sweats. We did review her previous CT scans of the chest demonstrating multiple pulmonary nodules. Also had a PET scan demonstrating some mild FDG activity. We did discuss the imaging studies back in the spring and then again in the summer. The patient had not gotten a repeat CT scan. Partly because of the COVID-19 infections. However, she is finally scheduled to have a CT scan of the chest tomorrow. I did spe ak to her grandson. After the CT scan I will talk to them about the results. If the nodules have gotten bigger will need other concerning findings then went to talk about further interventions. Hopefully that is not the case. 06/25/2020 the patient is here for pulmonary follow-up visit. Overall she is doing better. She has been walking better and she is eating better and she is actually not using a wheelchair for the 1st time in well. She states she is feels better after her thyroid medication was changed. In the meantime will monitoring closely her pulmonary nodules. Her last CT scan of the chest was done recently and was personally by me. She does have a intermediate size pulmonary nodule in the left upper lobe which is concerning in appearance was as subsolid component. She has had a PET scan in the past. Demonstrating mild FDG activity. At this point the nodule has not significantly changed from last year. However, the appearance of it is indeed a little concerning. Therefore we had repeat a CT scan in 6 months. If they area still abnormal or any change in his appearance consider bronchoscopy to at least assess the airways and to potentially perform a diagnostic intervention. In the meantime she is going to continue with current respiratory therapy which appears to be effective for her. 08/12/2021 the patient is here for a pulmonary follow-up visit. Overall the patient has been doing better. Apparently she did get back from [place] and she left her medications there therefore she was without her respiratory medications for a week or more. Her respiratory status became significantly worse and she had to be taken to the hospital. Patient was given prednisone and ultimately she was able to get her Trelegy inhaler. He was also issues with her nebulizer. But apparently she does have a nebulizer available. I will make sure she has the medication available at home to be able to treat herself she develops any significant congestion. In the meantime the patient did have a CT scan of the chest lost over the summer of 2020 demonstrating a 1.5 cm spiculated nodule in addition to other subsolid nodular densities that need follow-up. The CT scan demonstrated stability of the nodular densities. Therefore will plan to repeat the CT scan a year from her last 1 which will be in December 2021. Will follow-up after the CT scan. If the patient develops any worsening symptoms prior to that she is to call the office because we may want to look at does density sooner rather than later if that is the case. She is following closely with Endocrinology. Seems to be doing well in remission from her thyroid cancer. Now has significant osteoporosis therefore needs to be very careful with systemic or even inhaled steroids. Currently she is taking a small dose of inhaled steroids with her Trelegy which will continue in view of her recent exacerbation. 04/30/2022 the patient is here for pulmonary follow-up visit. He has been lost to follow-up. She had a CT scan back in December that was supposed to follow-up then. She does have concerning findings including a 1.5 cm spiculated left upper lobe nodular density as well as the other changes stated previously. The patient is high risk with a history of smoking. We did review her CT scan from December 2021 demonstrating again the 1.5 cm spiculated lesion. With her history although this is not changing go ahead and presented at tumor conference. The patient has continued to use her respiratory therapy. she denies any significant shortness of breath or any worsening cough symptoms. Her appetite is good per the patient. She denies any night sweats or weight loss. 07/06/2023 the patient is here for a pulmonary follow-up visit. The patient overall has been doing well. No significant weight loss or night sweats. Her appetite continues to be well. She continues on the Trelegy inhaler that appears to be affecting beneficial. She also has a rescue inhaler that she is she does not require. She did have a CT scan of the chest back in December 2022 demonstrating a 1.5 spiculated lesion which appears to be concerning in appearance. However, has not really changed in size which is reassuring. Will go ahead and repeat the imaging study at this time based on the concerning appearance. I did talk to the family that if the nodule were to increase in size or worsening in appearance that they can consider a diagnostic intervention. I did talk to the patient as well about it. She seems to be interested in pursuing a diagnostic intervention if the nodule changes or becomes concerning. Currently she is living with her grandson. It appears that she is currently sleeping on a sofa because they only have a 1 bedroom apartment. I think it is reasonable specially if she is part of the least that she gets the room specially with her history of COPD and heart failure that she should have a bed that she can position to provide the most support.. 04/12/2024 the patient is here for a pulmonary follow-up visit. She was lost to follow-up for a period of time. The last time we spoke was back in July which she had a CT scan ordered. The CT scan was considered abnormal w ith a 1.8 cm spiculated nodule and we did go ahead and relay the information to the family in order a an urgent PET scan to better address the area. Now she is presenting after recent follow-up and has sensation at [facility]. She had a COPD exacerbation. She did not have her nebulized medication at home. I will make sure to send her nebulized medication and also will go ahead and increase her Trelegy to the higher dose of 200 mcg. In the meantime explained to them the concerns about this 1.8 cm spiculated lesion. She did not have a PET scan because apparently did not have insurance at the time. Will go ahead and reorder the PET scan urgently since this is a concern. She does have a history of thyroid cancer already. The patient will follow-up after the PET scan. If she has not issues prior to that she will call for an earlier assessment. 06/06/2024 the patient is here for a pulmonary follow-up visit. Overall she is doing okay. Denies any significant weight loss or night sweats. Denies any worsening cough. She is taking her respiratory medications as prescribed with good effect. She did have the abnormal finding of 1.8 cm spiculated lesion in the left upper lobe. She did get the PET scan and we did review it. It appeared that the larger nodular density in the left upper lobe had an FDG activity of 2.5 which is just on low threshold of abnormal. This is a nonspecific hypomanic buttock process. The patient has other densities which are with less FDG. Likely inflammatory or infectious. That is likely malignant although still in differential. We did talk about different options as far as CT-guided biopsy versus bronchoscopy. The family and the patient were agreeable to a bronchoscopy to rule out infections in addition to assess for smoldering cancer. 08/01/2024 the patient is here for a pulmonary follow-up visit. She is status post bronchoscopy. We did not see any any endobronchial disease. We did washings and brushings in both negative for malignant cells. Her cultures were positive for Pseudomonas her. I did send her quinolones but she can not tolerated because of dizziness. Therefore she stopped it. She does complaint of chest congestion. Explained to her that we can not treat the Pseudomonas with oral medications. However will go ahead and start her on azithromycin 3 times a week to treat her for chronic bronchitis. Hopefully this decreases the phlegm to some degree. I will give her liquids and she has a hard time with capsules and tablets. In addition to that she get an EKG because she did complaint of fleeting chest discomfort. She does not have it right now. She also has a rescue 30 therapy. Unfortunately she continues to smoke cigarettes making it more difficult for her respiratory symptoms. The patient will continue the medication will repeat her CT scan in 2-3 months to assess response to therapy. Indeed the patient is high risk for cancer and although she had a negative bronchoscopy there still potential concern for cancer. [facility] Medical History (Updated 07/28/24 @ 17:03 by Kailee Parks PA-C) Encounter for Medicare annual wellness exam Bite from dog Paroxysmal atrial fibrillation (HFpEF) heart failure with preserved ejection fraction COPD (chronic obstructive pulmonary disease) CKD (chronic kidney disease) HLD (hyperlipidemia) HTN (hypertension) Afib CHF (congestive heart failure) Vitamin D deficiency Pulmonary nodules Osteoporosis Hyperparathyroidism Postoperative hypothyroidism History of thyroid cancer Surgical History History of biopsy History of parathyroidectomy History of total thyroidectomy History of bladder surgery Family History Father Hypertension Mother No problems noted. Social History Housing: Apartment Are you a primary care center manager to a significant other at home: No Do you presently have visiting nurse or other home services: No Alcohol intake: never Patient Tobacco Use Status: Former Tobacco user Tobacco use type: Cigarette Years Smoked: 40 e-Cigarette/Vaping Use: Never Used Second Hand Smoke Exposure: Yes service: No Current occupational status: retired and disabled Cognitive needs: No Hearing needs: No Vision needs: Yes Review of Systems Const Denies increased appetite and Denies night sweats ENT Denies change in voice, Denies lip swelling, Denies mouth pain, Reports nasal congestion, Reports nasal discharge and Denies tongue swelling Card Denies chest pain and Reports dyspnea Resp Reports cough, Reports dyspnea and Reports wheezing GI Denies abdominal pain Reports difficulty voiding Musc Denies no additional complaints Neuro Denies Neuro-related abnormal movements Psych Denies no additional complaints Malcolm/Lymph Denies easy bleeding and Denies lymphadenopathy Aller/Immun Denies lip swelling, Denies tongue swelling and Reports wheezing Physical Exam Vital Signs: Last Vital Signs Pulse 111 H 08/01/24 10:25 BP 116/54 L 08/01/24 10:25 Pulse Ox 95 08/01/24 10:25 Oxygen Delivery Method Room Air 08/01/24 10:25 Const General: alert Neck Neck: Yes normal visual inspection, Yes full ROM and Yes no lymphadenopathy Chest Chest palpation & inspection: normal inspection of the chest Resp Auscultation: diminished lung sounds Cardio Rate: regular rate Rhythm: regular rhythm Heart sounds: S1 normal heart sound present and S2 normal heart sound present GI Palpation (GI): Soft to palpation and nontender Auscultation: normal bowel sounds Skin General skin exam: rashes and/or lesions noted Assessment & Plan Assessment & Plan (1) History of thyroid cancer: Code(s): Z85.850 - Personal history of malignant neoplasm of thyroid Category: Medical (2) Pulmonary nodules: Comment: MOLLY subsolid nodule. Irregular appearance. 1.5 spiculated nodule MOLLY Code(s): R91.8 - Other nonspecific abnormal finding of lung field Category: Medical Plan: CT scan of the chest to be completed tomorrow. We will discuss the findings after I have a chance to review them. (3) COPD (chronic obstructive pulmonary disease): Code(s): J44.9 - Chronic obstructive pulmonary disease, unspecified Category: Medical Qualifiers: COPD type: chronic bronchitis Chronic bronchitis type: simple Q ualified Code(s): J41.0 - Simple chronic bronchitis Plan Continue Trelegy increase 200 short-acting beta agonist as needed start Azithromycin MWF nebulized therapy as needed EKG Repeat CT chest 2 months follow-up in 3-4 months Orders: Orders ECG 12 lead EKG Today J44.9 - Chronic obstructive pulmonary disease, unspecified CT chest wo IV con 2 Months R91.8 - Other nonspecific abnormal finding of lung field Medications: New azithromycin 500 mg (12.5 mL) PO 3XW 162.498 mL 3RF 30 days Coding Level of Care Code Est Pt Level 4 (43341) Complex EM visit Add On G2211 Diagnoses History of thyroid cancer Z85.850 Pulmonary nodules R91.8 Simple chronic bronchitis J41.0 COPD type: chronic bronchitis Chronic bronchitis type: simple Time Spent (min) 16
[2024-08-01 10:25] VITALS: BP 116/54; PULSE 111; O2SAT 95
--- OUTSIDE RECORDS SUMMARY | 2024-08-01 11:59 | XMS_ITS | Clinical Summary ---
Author Organization [facility] Address [address] [facility] [address] [place] [address] Phone Care Team Providers Care Account Receivable Clerk Name Role Phone Pir CANDY Marks Primary [...] 0 Refills, Maintenance, 01/20/22 9:41:00 EDT, Tablet, [facility], Partial fill upon patient [...] patient's age to complete this topic Insurance [address] [place] [id number] [facility] ([id number]) [place] [id number] [facility] ([id number]) [place] [id number] Care Teams Account Receivable Clerk Relationship Specialty Start Date End Date Pir Marks MD PCP - General Nephrology 03/11/22
--- OUTSIDE RECORDS SUMMARY | 2024-08-01 11:59 | XMS_ITS | Clinical Summary ---
Author Organization [facility] Address [address] [place] [address] Phone Care Team Providers Care Alligator Trapper Name Role Phone Physician, No Pcp Primary [...] Insurance MEDICARE MEDICA[place] - [place] Care Teams Alligator Trapper Relationship Specialty Start Date End Date Physician, No Pcp PCP - General 04/25/24
--- OUTSIDE RECORDS SUMMARY | 2024-08-01 11:59 | XMS_ITS | Clinical Summary ---
Author Organization [address] Address [address] [place] [phone] Care Team Providers Care Cancer Spec Name Role Phone Obtain, Unable To Primary [...] Insurance MEDICARE MEDICARE MEDICARE MEDICARE Care Teams Cancer Spec Relationship Specialty Start Date End Date Obtain, Unable To PCP - General 06/20/15
== END 2024-08-01 10:52 | disposition home or self-care (01) ==
PROVIDERS: PCP Internal Medicine; Visit Provider Hospitalist
DX: Z85.850 Personal history of malignant neoplasm of thyroid (principal); R91.8 Other nonspecific abnormal finding of lung field; J41.0 Simple chronic bronchitis
CPT/HCPCS: 99214; G2211

== ENCOUNTER → 2024-08-01 10:22 | Outpatient (BNVA) | payer MEDICARE, MEDICAID, SELFPAY | PROVIDERS: PCP Internal Medicine; Visit Provider Hospitalist | DX: J41.0 Simple chronic bronchitis (principal); R91.8 Other nonspecific abnormal finding of lung field; Z85.850 Personal history of malignant neoplasm of thyroid | CPT/HCPCS: 99212 ==

== ENCOUNTER 2024-08-03 06:50 | Outpatient (REF) | payer MEDICARE, MEDICAID, SELFPAY ==
--- OUTSIDE RECORDS SUMMARY | 2024-08-03 06:53 | XMS_ITS | Clinical Summary ---
Author Organization [address] Address [address] [place] [id number] Care Team Providers Care Cafe Assistant Name Role Phone Obtain, Unable To Primary [...] Insurance MEDICARE MEDICARE MEDICARE MEDICARE Care Teams Cafe Assistant Relationship Specialty Start Date End Date Obtain, Unable To PCP - General 06/20/15
--- OUTSIDE RECORDS SUMMARY | 2024-08-03 06:53 | XMS_ITS | Clinical Summary ---
Author Organization [facility] Address [address] [place] [address] Phone Care Team Providers Care Morgue Librarian Name Role Phone Physician, No Pcp Primary [...] Insurance MEDICARE [place] - [place] Care Teams Morgue Librarian Relationship Specialty Start Date End Date Physician, No Pcp PCP - General 04/25/24
--- OUTSIDE RECORDS SUMMARY | 2024-08-03 06:53 | XMS_ITS | Clinical Summary ---
Author Organization [facility] Address [address] [facility] [address] [place] [address] Phone Care Team Providers Care Egg Caser Name Role Phone Pir CANDY Marks Primary [...] 0 Refills, Maintenance, 01/20/22 9:41:00 EDT, Tablet, [facility], Partial fill upon patient request [...] patient's age to complete this topic Insurance [address] [place] [id number] [facility] ([id number]) [place] [id number] [facility] ([id number]) [place] [id number] Care Teams Egg Caser Relationship Specialty Start Date End Date Pir Marks MD PCP - General Nephrology 03/11/22
[2024-08-03 08:12] LABS: Estimated Average Glucose 108 mg/dL; Hemoglobin A1C 121.8934 umol/L; Hemoglobin A1c % 5.4 % (<6.0); Total Hemoglobin (HGBA1C) 3448.8616 umol/L
[2024-08-03 08:19] LABS: Albumin Level 3.8 g/dL (3.5-5.0); Anion Gap 12 (12-20); Blood Urea Nitrogen 20 mg/dL (9-16); Calcium 9.4 mg/dL (8.4-10.2); Carbon Dioxide 24 mmol/L (22-29); Chloride 109 mmol/L (96-108); Estimated Glomerular Filt Rate 52; Glucose Random 89 mg/dL (60-115); Magnesium 2.1 mg/dL (1.6-2.6); Potassium 3.7 mmol/L (3.3-5.1); Sodium 141 mmol/L (135-145)
[2024-08-03 08:33] LABS: Vitamin D 25-OH Total 37.7 ng/mL (>30)
[2024-08-03 08:38] LABS: Free T4 (Free Thyroxine) 1.38 ng/dL (0.71-1.85); Thyroid Stimulating Hormone 0.79 uIU/mL (0.32-4.0)
[2024-08-03 08:49] LABS: Folate 12.5 ng/mL (> or = 4.0); Vitamin B12 709 pg/mL (200-900)
[2024-08-13 08:34] LABS: Vitamin B1 8 nmol/L (8-30)
== END 2024-08-03 06:51 | disposition home or self-care (01) ==
LOC: HO.LAB 06:50
PROVIDERS: Absent Provider Physician Assistant Medical; PCP Physician Assistant Medical; Visit Provider Internal Medicine Endocrinology, Diabetes & Metabolism
DX: Z00.00 Encounter for general adult medical examination without abnormal findings (principal); M81.0 Age-related osteoporosis without current pathological fracture; E89.0 Postprocedural hypothyroidism; Z13.1 Encounter for screening for diabetes mellitus
CPT/HCPCS: 36415; 80048; 82040; 82306; 82607; 82746; 83036; 83735; 84425; 84439; 84443

== ENCOUNTER 2024-08-08 14:05 | Outpatient (AMB) | payer MEDICARE, MEDICAID, SELFPAY ==
--- NOTE | 2024-08-08 14:07 | MHC.OFFVIS ---
Vital Signs 08/08/24 14:11 Height 4 ft 10.99 in Weight 110 lb 10.753 oz BMI 22.4 BP 98/58 L Blood Pressure Location Lt brachial Position Sitting Pulse 56 Pulse Source Pulse Oximeter Pulse Oximetry (%) 97 Oxygen Delivery Method Room Air Intake Visit Reasons: f/u osteoporosis/thyroid cancer/prolia injection Intake Note: Patient present today for Osteoporosis and Thyroid Cancer f/u. Solid Waste Truck Driver Required: Yes Solid Waste Truck Driver Language: Stripper Color Services: Solid Waste Truck Driver Present Solid Waste Truck Driver Name: Iveth [id number] Information Interpreted: non-clinical & clinical Accompanied by: Son In Law, Grandson Allergies levofloxacin Allergy (Intermediate, Verified 08/08/24 14:20) Dizziness aspirin Allergy (Mild, Verified 08/08/24 14:20) Rash dipyridamole [From Persantine] Allergy (Mild, Verified 08/08/24 14:20) Rash Iodinated Contrast Media [IV Contrast Dye] Allergy (Unknown, Verified 08/08/24 14:20) Unknown Medication List - Last Reconciled 08/08/24 by Tyler Garcia MD albuterol sulfate 2.5 mg (3 mL) inhalation Q8H PRN albuterol sulfate 2.5 mg (3 mL) inhalation Q6H PRN 30 days albuterol sulfate 90 mcg/actuation 2 inhalations inhalation Q6H PRN 30 days apixaban (Eliquis) 2.5 mg PO BID 90 days azithromycin 500 mg (12.5 mL) PO 3XW 30 days calcium citrate-vitamin D3 315 mg-6.25 mcg (250 unit) 2 tabs PO BID 30 days cholecalciferol (vitamin D3) 50 mcg PO DAILY 30 days denosumab 60 mg subcut [id number] 200-62.5-25 mcg (Trelegy Ellipta) 1 inh inhalation DAILY 30 days furosemide 20 mg PO DAILY 90 days levothyroxine 88 mcg PO DAILY metoprolol tartrate 50 mg PO BID 90 days mirtazapine 15 mg PO BEDTIME 90 days HPI Comments Details: 84 YO Female with an extensive PMHx who is seen in F/U for Osteoporosis.. Of note, she is a very poor historian and the majority of history is gathered from chart review and from her Son in Law. They have been consistently poorly compliant with my recommendations. She was previously followed by Dr. Marquez, but was lost to F/U after 07/13/15. 2) Osteoporosis and Hyperparathyroidism: She has a known history of severe Osteoporosis, and had been on Fosamax for many years. This was stopped at an unknown date. It does appear she was diagnosed with Primary Hyperparathyroidism years ago, but did not complete her workup and was not referred for surgery. She did have labs completed 03/15/15 with Total Calcium of 10.2, no albumin checked, Ionized Calcium of 5.9, PTH 97 with Vitamin D 40.2. She was lost to F/U and then was referred to Rheumatology for her Osteoporosis. Labs were repeated 11/10/18 with Cr of 0.93, GFR of 58, Total Calcium 10.3 with Albumin 4.0, Vitamin D 42.7. No PTH was assessed. DEXA was checked 12/10/2018 which revealed severe Osteoporosis of the spine with T score of -6.0. Hips were in Osteoporotic range with T score of -3.4. No forearm BMD was checked. She was subsequently referred to Endocrinology. We repeated labs after her initial visit with results 05/04/19 PTH 63, Total Calcium 9.9, Albumin 3.7, Vitamin D 36.3, Ionized Calcium 5.8. Her 24 hour urine calcium and creatnine were WNL, and not consistent with FHH. She was referred for Parathyroidectomy and also underwent this 11/09/2019. She had removal of a L inferior hyperplastic parathyroid gland. Labs checked 01/12/2020 reveal Calcium WNL at 9.0 but PTH remains elevated at 86 with Vitamin D of 28.4. She is taking Vitamin D 1000 IU daily. She did remain on Fosamax, which was prescribed by her PCP. She stopped this as of April 2020. It is unclear if she is using daily prednisone currently, but it does appear she has used prednisone frequently in the past. She is also on full AC with Eliquis due to pAFib. Repeat labs reveal PTH is elevated, with low normal calcium. She presents today to review. She walks throughout the day, but does no scheduled exercise. Fracture history: Denies. Height loss: Does report height loss, but is unable to quantify. INSPECTOR WREATH history: Menarche was age 15. , she did not breastfeed. She is unsure of when menopause was. History of Kidney stones: Denies. Denies family history of Osteoporosis or hip fracture. DXA dated 12/06/2020: AP SPINE L1-L4: Current: BMD 0.451 g/cm2, Z-score -3.8, T-score -6.1, osteoporosis, 2.8% decrease from previous, 0.2% increase from baseline (<5% change is not significant). Prior: BMD 0.464 g/cm2. Baseline: BMD 0.450 g/cm2. LEFT FEMUR, NECK: Current: BMD 0.586 g/cm2, Z-score -0.8, T-score -3.2, osteoporosis. Prior: BMD 0.591 g/cm2. Baseline: BMD 0.626 g/cm2. LEFT FEMUR, TOTAL: Current: BMD 0.559 g/cm2, Z-score -1.2, T-score -3.6, osteoporosis, 4.0% decrease from previous, 10.6% decrease from baseline (<5% change is not significant). Prior: BMD 0.582 g/cm2. Baseline: BMD 0.625 g/cm2 Labs: Laboratory Tests 11/11/21 11/11/21 12:00 12:00 Albumin 3.9 25-OH Vitamin D Total 28.2 TSH 2.16 Free T4 1.41 PTH Intact 80 H Calcium (PTH Intact) 9.4 Laboratory Tests 11/11/21 12:00 Creatinine 1.18 Estimated GFR 44 The patient is an 84-year-old female presenting for follow-up on osteoporosis management and Prolia injection. She has been on Prolia for two and a half years and continues without noted fractures since the last visit. A recent fall resulted in an arm injury, which was not a fracture. Her last vitamin D levels were adequate, despite cessation months ago. Her thyroid cancer history necessitates a follow-up with Dr. Trae velasquez. [facility] Medical History (Updated 07/28/24 @ 17:03 by Kailee Parks PA-C) Encounter for Medicare annual wellness exam Bite from dog Paroxysmal atrial fibrillation (HFpEF) heart failure with preserved ejection fraction COPD (chronic obstructive pulmonary disease) CKD (chronic kidney disease) HLD (hyperlipidemia) HTN (hypertension) Afib CHF (congestive heart failure) Vitamin D deficiency Pulmonary nodules Osteoporosis Hyperparathyroidism Postoperative hypothyroidism History of thyroid cancer Surgical History History of biopsy History of parathyroidectomy History of total thyroidectomy History of bladder surgery Family History Father Hypertension Mother No problems noted. Social History Housing: Apartment Are you a primary elderly caregiver to a significant other at home: No Do you presently have visiting nurse or other home services: No Alcohol intake: never Patient Tobacco Use Status: Former Tobacco user Tobacco use type: Cigarette Years Smoked: 40 e-Cigarette/Vaping Use: Never Used Second Hand Smoke Exposure: Yes service: No Current occupational status: retired and disabled Cognitive needs: No Hearing needs: No Vision needs: Yes Physical Exam Vital Signs: Last Vital Signs Pulse 56 08/08/24 14:11 BP 98/58 L 08/08/24 14:11 Pulse Ox 97 08/08/24 14:11 Oxygen Delivery Method Room Air 08/08/24 14:11 BMI result Body Mass Index 22.4 Office Meds Prolia 60 mg/mL subcutaneous syringe Performing Provider: Tyler Garcia MD Performing Location: [facility] Endocrinology Administered by: Myah Stiles RN on 08/08/24 14:36 Dose Route Admin Location Dispensed Lot Number Expiration Date [facility] Senior Electronics Engineer 60 mg subcut left upper arm 1 mL [id number] 11/28/26 90717-174-18 [employer] Comments: Consent form signed by patient. Solid Waste Truck Driver # [id number] present during visit. Pt denied any adverse reactions to previous injections. Pt tolerated injection well. Assessment & Plan Assessment & Plan (1) Osteoporosis: Code(s): M81.0 - Age-related osteoporosis without current pathological fracture Category: Medical Qualifiers: Osteoporosis type: unspecified Presence of current pathological fracture: unspecified Qualified Code(s): M81.0 - Age-related osteoporosis without current pathological fracture Plan: Secondary workup was negative except for hyperparathyroidism status post parathyroidectomy. Patient is currently on calcium, vitamin-D and Prolia q.6 months Management with Prolia continues, demonstrating stability in the patient's condition with no new fractures despite a recent fall. The Prolia injection will be administered today, and a follow-up bone density scan will be scheduled. Reassessment in six months will include Prolia administration We discussed the ongoing plan for managing osteoporosis with Prolia and the need for a bone density scan to monitor the treatment's effectiveness. I addressed the patient's recent arm injury not being a fracture and the stability shown in her osteoporosis management. There was a conversation regarding the adequacy of her current vitamin D levels post-hospitalization. The patient agreed to receive the Prolia injection today and to schedule a follow-up bone density scan. Additionally, there was an acknowledgment of the need for follow-up with a specialist for her history of thyroid cancer. (2) History of thyroid cancer: Code(s): Z85.850 - Personal history of malignant neoplasm of thyroid Category: Medical Plan: . History of Thyroid Cancer: Ongoing thyroid health needs monitoring due to past thyroid cancer. A follow-up appointment with a thyroid cancer specialist Dr. Larkin is planned for approximately six months to ensure proper surveillance. The patient had an opportunity to ask questions regarding treatment plan. The patient expressed understanding and agreement with the above treatment plan. Patient was informed and verbally consented to the use of an ambient scribe for clinic note documentation during this visit. Orders: Orders XR DEXA axial skeleton Today M81.0 - Age-related osteoporosis without current pathological fracture AMB Denosumab Injection Practice Supplied Today M81.0 - Age-related osteoporosis without current pathological fracture Coding Level of Care Code Est Pt Level 3 (87067) Diagnoses Osteoporosis, unspecified osteoporosis type, unspecified pathological fracture presence M81.0 Osteoporosis type: unspecified Presence of current pathological fracture: unspecified History of thyroid cancer Z85.850
[2024-08-08 14:11] VITALS: BP 98/58; PULSE 56; O2SAT 97; BMI 22.4
--- OUTSIDE RECORDS SUMMARY | 2024-08-08 16:03 | XMS_ITS | Clinical Summary ---
Author Organization [facility] Address [address] [place] [address] Phone Care Team Providers Care Security Checker Name Role Phone Physician, No Pcp Primary [...] Insurance MEDICARE MEDICAID - [place] Care Teams Security Checker Relationship Specialty Start Date End Date Physician, No Pcp PCP - General 04/25/24
--- OUTSIDE RECORDS SUMMARY | 2024-08-08 16:03 | XMS_ITS | Clinical Summary ---
Author Organization [facility] Address [address] [facility] [address] [place] [address] Phone Care Team Providers Care Roll Tester Name Role Phone Pir CANDY Marks Primary [...] 0 Refills, Maintenance, 01/20/22 9:41:00 EDT, Tablet, [facility], Partial fill upon patient request [...] age to complete this topic Insurance [address] [place] [id number] [facility] ([id number]) [place] [id number] [facility] ([id number]) [place] [id number] Care Teams Roll Tester Relationship Specialty Start Date End Date Pir Marks MD PCP - General Nephrology 03/11/22
== END 2024-08-08 15:01 | disposition home or self-care (01) ==
PROVIDERS: PCP Internal Medicine; Visit Provider Internal Medicine Endocrinology, Diabetes & Metabolism
DX: M81.0 Age-related osteoporosis without current pathological fracture (principal); Z85.850 Personal history of malignant neoplasm of thyroid
CPT/HCPCS: 99213

== ENCOUNTER → 2024-08-08 14:05 | Outpatient (BNVA) | payer MEDICARE, MEDICAID, SELFPAY | PROVIDERS: PCP Internal Medicine; Visit Provider Internal Medicine Endocrinology, Diabetes & Metabolism | DX: M81.0 Age-related osteoporosis without current pathological fracture (principal); Z85.850 Personal history of malignant neoplasm of thyroid | CPT/HCPCS: 96372; 99212; J0897 ==

== ENCOUNTER 2024-09-13 10:57 | Outpatient (REF) | payer MEDICARE, MEDICAID, SELFPAY ==
--- NOTE | ~2024-09-13 | MM_ITS ---
EXAMINATION: DXA BONE DENSITY AXIAL HISTORY: M81.0 - Age-related osteoporosis without current pathological fracture TECHNIQUE: [employer] Dual energy absorptiometry (DEXA) of the lumbar spine, total left hip, and femoral neck was performed. COMPARISON: Comparison is made with the prior examination dated 12/06/2020. FINDINGS: The bone mineral density of the lumbar spine is 0.422 with a T-score of -6.3, and a Z-score of -3.8. This is indicative of osteoporosis. This represents a BMD change of 4.5% compared to the prior exam. This is not statistically significant. The bone mineral density of the left total hip is 0.560 with a T-score of -3.6, and a Z-score of -0.9. This is indicative of osteoporosis. This represents a BMD change of 0.2% compared to the prior exam. This is not statistically significant. The bone mineral density of the left femoral neck is 0.574 with a T-score of -3.3, and a Z-score of -0.6. This is indicative of osteoporosis. This represents a BMD change of -2.0% compared to the prior exam. FRACTURE RISK: The FRAX index suggests a ten year probability of major osteoporotic fracture of 25.7%, and of hip fracture 10.2%. MM/XR DEXA axial skeleton IMPRESSION: Based on bone mineral density, and according to World Health Organization (WHO) criteria, the diagnosis is consistent with osteoporosis. All bone density values are in grams per centimeter squared (g/cm2). Statistically, 68% of repeat scans fall within 1 SD (+/- 0.010 g/cm2 for AP spine L1-L4) and 1 SD (+/- 0.012 g/cm2 for femur total) FRAX is a trademark of the [employer]'s [place] for Metabolic Bone Disease, a World Health Organization (WHO) Collaborating Center. Electronically signed by: Tyler Ford MD 09/13/2024 11:51 AM EDT
--- OUTSIDE RECORDS SUMMARY | 2024-09-13 13:26 | XMS_ITS | Clinical Summary ---
Author Organization [facility] Address [address] [place] [address] Phone Care Team Providers Care Phlebotomy Tech Name Role Phone Physician, No Pcp Primary [...] Vaccines (1 of 2) 1959 RSV Immunization Adult Patients (1 - 1-dose 75+ series) 2015 COVID-19 Vaccine (3 - Modern a risk series) 11/27/2020 10/30/2020, 10/01/2020 Cholesterol Screening (Lipid Panel) 04/20/2024 Depression Screening 04/20/2024 Falls Risk Assessment 04/20/2024 Hypertension/CHF/CAD Annual BMP Blood Test 04/20/2024 Medicare Annual Wellness Visit 04/20/2024 Osteoporosis Screening (Bone Density Screening) 04/20/2024 Social Influencers of Health Screening 04/20/2024 Influenza Vaccine (Season Ended) 2025 04/30/2022, 04/20/2018, 06/22/2015 DTaP,Tdap,and Td Vaccines (2 - Td or [...] age to complete this topic Meningococcal B Vaccine Aged Out No l onger eligible based on patient's age to complete this topic RSV Immunization Patients Under 20 months Aged Out No longer eligible b ased on patient's age to complete this topic Varicella Vaccines Aged Out No longer eligible based on patient's age to complete this topic Insurance MEDICARE MEDICAID - [place] Care Teams Phlebotomy Tech Relationship Specialty Start Date End Date Physician, No Pcp PCP - General 04/25/24
--- OUTSIDE RECORDS SUMMARY | 2024-09-13 13:26 | XMS_ITS | Clinical Summary ---
Author Organization [facility] Address [address] [facility] [address] [place] [address] Phone Care Team Providers Care Cardio Clinician Name Role Phone Pir CANDY Marks Primary [...] 0 Refills, Maintenance, 01/20/22 9:41:00 EDT, Tablet, [facility], Partial fill upon patient [...] Due Date Last Done Comments Influenza Vaccine (Season Ended) 2025 Pneumococcal Vaccine: 50+ Years Completed 04/30/2017, 07/05/2015 Hepatitis B Vaccine Aged Out No longe r eligible based on patient's age to complete this topic Insurance [address] [place] [id number] [facility] ([id number]) [place] [id number] [facility] ([id number]) [place] [id number] Care Teams Cardio Clinician Relationship Specialty Start Date End Date Pir Marks MD PCP - General Nephrology 03/11/22
--- OUTSIDE RECORDS SUMMARY | 2024-09-13 13:26 | XMS_ITS | Clinical Summary ---
Author Organization [address] Address [address] [place] [phone] Care Team Providers Care Drawing Hand Name Role Phone Obtain, Unable To Primary [...] Lipid disorder screening 1980 Diabetes screening 1985 Pneumococcal Vaccine (50+ ye ars) (1 of 1 - PCV) 1990 Shingles vaccine (Shingrix) (1 of 2 - Shingrix (RZV) 2 Dose Standard Series) 1990 Osteoporosis screening (bone density) 2005 RSV Immunization (1 - 1-dose 75+ series) 2015 Covid-19 vaccine series (2023- season) 2024 Influenza vaccine 01/30/2025 Breast cancer screening Discontinued Cervical cancer screening Discontinued Meningococcal Vaccine Aged Out No michelle tiffanie eligible based on patient's age to complete this topic Insurance MEDICARE MEDICARE MEDICARE MEDICARE Care Teams Drawing Hand Relationship Specialty Start Date End Date Obtain, Unable To PCP - General 06/20/15
== END 2024-09-13 10:58 | disposition home or self-care (01) ==
LOC: HO.MAMMO 10:57
PROVIDERS: Visit Provider Internal Medicine Endocrinology, Diabetes & Metabolism
DX: M81.0 Age-related osteoporosis without current pathological fracture (principal)
CPT/HCPCS: 77080

== ENCOUNTER → 2024-09-13 11:00 | Outpatient (BNV) | payer MEDICARE, MEDICAID, SELFPAY | PROVIDERS: Visit Provider Radiology Diagnostic Radiology | DX: E28.39 Other primary ovarian failure (principal) | CPT/HCPCS: 77080 ==

== ENCOUNTER 2024-09-26 10:01 | Outpatient (REF) | payer MEDICARE, MEDICAID, SELFPAY ==
--- NOTE | ~2024-09-26 | CT_ITS ---
CLINICAL HISTORY: R91.8 - Other nonspecific abnormal finding of lung field CT chest without contrast Comparison: XA/OT - FL GUIDANCE IN OR - 06/20/24 14:[address]/HI/SR - CT CHEST WO IV CON - 08/18/23 09:[address]/SR - CT CHEST WO CON - 01/07/22 13:13 EDT Findings: No mediastinal mass or lymphadenopathy. No cardiomegaly. Mild calcified coronary artery disease. Trace calcification of the aortic valve. Moderate calcification of the mitral annulus. Normal size thoracic aorta with severe calcified atherosclerotic disease. Hyperinflation with increased anterior-posterior chest dimension. There is a spiculated mass in the left upper lobe measuring 1.7 x 3.4 x 1.6 cm, unchanged in size from the prior studies, however previously with more ground-glass opacity rather than solid components. Pulmonary nodules measure up to 7 mm in the superior segment of the left lower lobe, previously measuring 7 mm on the study from 08/18/23 and not definitively visualized on the study from 01/07/22. There is nodular scarring right lung apex, unchanged. There are bilateral ground-glass opacities which measure up to 2.7 cm in the right upper lobe, previously measuring up to 2.2 cm on the study from 08/18/23 and and up to 1.9 cm on the study from 01/07/22. Mild paraseptal emphysema No pneumothorax or pleural effusion. No acute osseous or soft tissue abnormality. Kyphosis. No acute pathology in the imaged portion of the upper abdomen. Status post cholecystectomy. Impression: Left upper lobe mass measuring 3.4 cm which is stable in size, however increased in solid components. Evaluate further with PET-CT if not already performed. Correlate with pathology results. Bilateral pulmonary nodules measure up to 7 mm are stable since 08/18/23, however some of which are new since 01/07/22. Bilateral ground-glass opacity, increasing in size. Continued follow up is recommended. This document has been electronically signed by: Ndiia Lang MD on 09/27/2024 23:01:16
--- OUTSIDE RECORDS SUMMARY | 2024-09-26 11:33 | XMS_ITS | Clinical Summary ---
Author Organization [facility] Address [address] [facility] [address] [place] [address] Phone Care Team Providers Care Precision Grinder Name Role Phone Pir CANDY Marks Primary [...] 0 Refills, Maintenance, 01/20/22 9:41:00 EDT, Tablet, [facility], Partial fill upon patient [...] patient's age to complete this topic Insurance [address] [place] [id number] [facility] ([id number]) [place] [phone] [facility] ([id number]) [place] [id number] Care Teams Precision Grinder Relationship Specialty Start Date End Date Pir Marks MD PCP - General Nephrology 03/11/22
--- OUTSIDE RECORDS SUMMARY | 2024-09-26 11:34 | XMS_ITS | Clinical Summary ---
Author Organization [facility] Address [address] [place] [address] Phone Care Team Providers Care Engine Specialist Name Role Phone Physician, No Pcp Primary [...] Insurance MEDICARE MEDICAID - [place] Care Teams Engine Specialist Relationship Specialty Start Date End Date Physician, No Pcp PCP - General 04/25/24
--- OUTSIDE RECORDS SUMMARY | 2024-09-26 11:34 | XMS_ITS | Clinical Summary ---
Author Organization [address] Address [address] [place] [phone] Care Team Providers Care Timber Appraiser Name Role Phone Obtain, Unable To Primary [...] Insurance MEDICARE MEDICARE MEDICARE MEDICARE Care Teams Timber Appraiser Relationship Specialty Start Date End Date Obtain, Unable To PCP - General 06/20/15
== END 2024-09-26 10:02 | disposition home or self-care (01) ==
LOC: HO.CT 10:01
PROVIDERS: PCP Internal Medicine; Visit Provider Hospitalist
DX: R91.8 Other nonspecific abnormal finding of lung field (principal)
CPT/HCPCS: 71250

== ENCOUNTER → 2024-09-26 10:04 | Outpatient (BNV) | payer MEDICARE, MEDICAID, SELFPAY | PROVIDERS: PCP Internal Medicine; Visit Provider Radiology Diagnostic Radiology | DX: R91.8 Other nonspecific abnormal finding of lung field (principal) | CPT/HCPCS: 71250 ==

== ENCOUNTER 2024-10-27 16:00 | Outpatient (AMB) | payer MEDICARE, MEDICAID, SELFPAY ==
--- OUTSIDE RECORDS SUMMARY | 2024-10-27 16:03 | XMS_ITS | Clinical Summary ---
Author Organization [facility] Address [address] [facility] [address] [place] [address] Phone Care Team Providers Care Air Chipper Name Role Phone Pir CANDY Marks Primary [...] 0 Refills, Maintenance, 01/20/22 9:41:00 EDT, Tablet, [facility], Partial fill upon patient [...] patient's age to complete this topic Insurance [address] [place] [id number] [facility] ([id number]) [place] [id number] [facility] ([id number]) [place] [id number] Care Teams Air Chipper Relationship Specialty Start Date End Date Pir Marks MD PCP - General Nephrology 03/11/22
--- NOTE | 2024-10-27 16:10 | MHC.PC.OV ---
Vital Signs 10/27/24 16:11 Height 4 ft 10.99 in Weight 121 lb 11.123 oz BMI 24.6 BP 142/72 H Blood Pressure Location Lt brachial Position Sitting Pulse 66 Pulse Source Pulse Oximeter Temp 97.1 F Temp Source Temporal Artery Scan Pulse Oximetry (%) 97 Oxygen Delivery Method Room Air Intake Visit Reasons: 3 MONTH F/U Director Of Catering Required: No Accompanied by: Family/Other Allergies levofloxacin Allergy (Intermediate, Verified 10/27/24 16:25) Dizziness aspirin Allergy (Mild, Verified 10/27/24 16:25) Rash dipyridamole [From Persantine] Allergy (Mild, Verified 10/27/24 16:25) Rash Iodinated Contrast Media [IV Contrast Dye] Allergy (Unknown, Verified 10/27/24 16:25) Unknown Medication List - Last Reconciled 10/27/24 by Kailee Parks PA-C albuterol sulfate 2.5 mg (3 mL) inhalation Q8H PRN albuterol sulfate 90 mcg/actuation 2 inhalations inhalation Q6H PRN 30 days apixaban (Eliquis) 2.5 mg PO BID 90 days denosumab 60 mg subcut [id number] ocrlllchshy-entfkupto-bfflqzxk 200-62.5-25 mcg (Trelegy Ellipta) 1 inh inhalation DAILY 30 days furosemide 20 mg PO DAILY 90 days levothyroxine 88 mcg PO DAILY metoprolol tartrate 50 mg PO BID 90 days Tobacco use date assessed: 06/27/24 Fall risk assessment: No Falls in past year Last assessed Fall Risk: 10/27/24 Dental Screening Dental Screen Date: 06/27/24 HPI 3 MONTH F/U HPI Details The patient is an 84-year-old female presenting for routine follow-up and medication management. The primary concern is the inconvenience caused by receiving 30-day prescriptions instead of 90-day supplies, resulting in frequent pharmacy visits. The patient has a history of steroid use, although the specific condition treated was not detailed in our discussion. Her recent lab results, including Vitamin B12 and D, were normal as of July, but no recent CBC was conducted. There is a need to establish a consistent six-month follow-up schedule. Social History - Employment: The patient's grandson's significant other other/boyfriend works in a [employer]. - Functional Status: The patient reportedly gets up frequently and moves around obstacles to reach doors, indicating a level of mobility and independence. - Family Status: The patient lives with caregivers her grandson and his boyfriend who provide assistance and oversight. FORMERLY [facility], [facility] Medical History Encounter for Medicare annual wellness exam Bite from dog Paroxysmal atrial fibrillation (HFpEF) heart failure with preserved ejection fraction COPD (chronic obstructive pulmonary disease) CKD (chronic kidney disease) HLD (hyperlipidemia) HTN (hypertension) Afib CHF (congestive heart failure) Vitamin D deficiency Pulmonary nodules Osteoporosis Hyperparathyroidism Postoperative hypothyroidism History of thyroid cancer Surgical History History of biopsy History of parathyroidectomy History of total thyroidectomy History of bladder surgery Family History Father Hypertension Mother No problems noted. Social History Housing: Apartment Are you a primary animal care supervisor to a significant other at home: No Do you presently have visiting nurse or other home services: No Alcohol intake: never Patient Tobacco Use Status: Former Tobacco user Tobacco use type: Cigarette Years Smoked: 40 e-Cigarette/Vaping Use: Never Used Second Hand Smoke Exposure: Yes service: No Current occupational status: retired and disabled Cognitive needs: No Hearing needs: No Vision needs: Yes Questionnaire PHQ-9 Over the last 2 weeks, how often have you been bothered by any of the following problems? 1. Little interest or pleasure in doing things: not at all 2. Feeling down, depressed, or hopeless: not at all 3. Trouble falling or staying asleep, or sleeping too much: not at all 4. Feeling tired or having little energy: nearly every day 5. Poor appetite or overeating: not at all 6. Feeling bad about yourself - or that you are a failure or have let yourself or your family down: not at all 7. Trouble concentrating on things, such as reading the newspaper or watching television: not at all 8. Moving or speaking so slowly that other people could have noticed. Or the opposite - being so fidgety or restless that you have been moving around a lot more than usual: not at all 9. Thoughts that you would be better off or of hurting yourself in some way: not at all Total score: 3 Depression Screening Interpretation: Negative Depression Screening Done: Yes 34176 - PHQ-9 Billing: Yes Source: Developed by Drs. Tyler Dash, Germaine Núñez, Jean Paul Lopez and colleagues, with an educational stephanie from [employer]. Thrive Questionnaire Date Thrive assessed: 06/27/24 I am a: Parent/Caregiver What is your living situation today?: I have a steady place to live Within the past 12 months, did the food you bought not last and you didn't have the money to get more?: Often true Within the past 12 months, did you worry whether your food would run out before you got money to buy more?: Often true Do you have trouble paying for medicines?: No Do you have trouble getting transportation to medical appointments?: No Do you have trouble paying your heating and electricity bill?: No Do you have trouble taking care of your child, family member or friend?: No Do you have trouble with day-to-day activities such as bathing, preparing meals, shopping, managing finances, etc.?: No Are you currently unemployed and looking for a job?: No Are you interested in more education?: No Please select the resources that you would like help with: None Currently or been in a relationship where the following occur: No concerns reported THRIVE Score: 2 AUDIT C Alcohol Use Questionnaire (AUDIT-C) 1. How often do you have a drink containing alcohol?: Never Total Score: 0 Score Reviewed/Action Taken: No NIYAH-7 AMB Questionnaire NIYAH-7 Date NIYAH - 7 assessed: 06/27/24 Feeling nervous, anxious, or on edge: 0 = Not at all Not being able to stop or control worryin = Not at all Worrying too much about different things: 0 = Not at all Trouble relaxin = Not at all Being so restless that it is hard to sit still: 0 = Not at all Becoming easily annoyed or irritable: 0 = Not at all Feeling afraid as if something awful might happen: 0 = Not at all Total NIYAH-7 score (0-4 normal; 5-9 mild; 10-14 moderate; 15-21 severe): 0 Source: Developed by Drs. Tyler Dash, Germaine Núñez, Jean Paul Lopez and colleagues, with an educational stephanie from [employer]. NIYAH-7 Assessment Billing NIYAH-7 Assessment Tool: NIYAH-7 Assessment 61166 Review of Systems Const Details: - Endocrine: Denies abnormalities in thyroid function tests. - Hematologic: Denies recent Complete Blood Count (CBC) testing. Physical exam (Primary Care) Vital Signs: Last Vital Signs Temp 97.1 F 10/27/24 16:11 Pulse 66 10/27/24 16:11 BP 142/72 H 10/27/24 16:11 Pulse Ox 97 10/27/24 16:11 Oxygen Delivery Method Room Air 10/27/24 16:11 Care Plan Goal for BP management: <140/90 at Goal BMI result Body Mass Index 24.6 normal bmi Tobacco/Smoking Status: Tobacco use Status Tobacco use date assessed 06/27/24 10/27/24 16:12 Patient Tobacco Use Status Former Tobacco user 10/27/24 16:12 Tobacco use type Cigarette 10/27/24 16:12 e-Cigarette/Vaping Use Never Used 10/27/24 16:12 PHQ-9: PHQ-9 Score PHQ-9: Total score 3 10/27/24 16:12 Depression Screening Interpretation: Negative Thrive Assessment: Date of Thrive Assessment Date Thrive assessed 06/27/24 10/27/24 16:12 Currently or been in a relationship where the following occur: No concerns reported Const Other: Appearance: Alert. Oriented X3. No acute distress. Head: Normal external exam. Normocephalic. Atraumatic. Eyes: Pupils are equal, round, and reactive to light. Extraocular movements intact. Conjunctiva and sclera normal. Eyelids normal. Ears: External auditory canal normal. Tympanic membranes normal. Throat: Pharynx normal. Uvula midline. Moist mucous membranes. Neck: Normal inspection. Neck supple. Full range of motion. No adenopathy. Cardiovascular: Normal heart rate and rhythm. Heart sound normal. No murmurs noted. Pulses normal throughout. Respiratory: No respiratory distress. Painless inspiration. Breath sounds normal. No wheezes/rales/rhonchi noted. Chest nontender. No accessory muscle usage noted or decreased air movement noted. Abdomen: Soft and nontender. No distention noted. No organomegaly noted. No visible injury noted. Back: Full range of motion noted. Skin: Skin warm and dry. Normal skin color. Normal skin turgor. No rashes/lesions/lacerations noted. Extremities: No lower extremity edema. Extremities exhibit normal range of motion. Extremities nontender. Neuro: patient is sitting in wheelchair. At baseline for mentation. No confusion or focal deficits are noted. Patient moving all extremities. Results Reviewed Results Reviewed: - Labs: Chemistry tests, Vitamin B12, and Vitamin D levels were normal as of July. - Tests: Thyroid function tests were normal. Coding Level of Care Code Est Pt Level 4 (29474) Complex EM visit Add On G2211 Diagnoses HTN (hypertension) I10 CKD (chronic kidney disease) N18.9 HLD (hyperlipidemia) E78.5 Simple chronic bronchitis J41.0 COPD type: chronic bronchitis Chronic bronchitis type: simple Paroxysmal atrial fibrillation I48.0 (HFpEF) heart failure with preserved ejection fraction I50.30 Hyperparathyroidism E21.3 Postoperative hypothyroidism E89.0 Additional Codes PHQ-9 - 94215 - PHQ-9 Billing: Yes ([id number]) NIYAH-7 Assessment Billing - NIYAH-7 Assessment Tool: NIYAH-7 Assessment 15158 ([id number]) Assessment & Plan Assessment & Plan (1) HTN (hypertension): Code(s): I10 - Essential (primary) hypertension Category: Medical Plan: Patient currently on metoprolol 50 mg p.o. b.i.d. and furosemide 20 mg daily taking as prescribed. Blood pressure at goal today. Condition is chronic and stable continue to monitor. (2) CKD (chronic kidney disease): Code(s): N18.9 - Chronic kidney disease, unspecified Category: Medical Plan: Condition is chronic and stable will continue to monitor. (3) HLD (hyperlipidemia): Code(s): E78.5 - Hyperlipidemia, unspecified Category: Medical Plan: Condition is chronic and stable will continue to monitor. (4) COPD (chronic obstructive pulmonary disease): Code(s): J44.9 - Chronic obstructive pulmonary disease, unspecified Category: Medical Qualifiers: COPD type: chronic bronchitis Chronic bronchitis type: simple Qualified Code(s): J41.0 - Simple chronic bronchitis Plan: Patient has albuterol inhalers and Trelegy Ellipta. Condition is chronic and stable continue to monitor. (5) Paroxysmal atrial fibrillation: Code(s): I48.0 - Paroxysmal atrial fibrillation Category: Medical Plan: patient currently on Eliquis 2.5 mg b.i.d.. Taking as prescribed. Condition is chronic and stable continue to monitor. (6) (HFpEF) heart failure with preserved ejection fraction: Code(s): I50.30 - Unspecified diastolic (congestive) heart failure Category: Medical Plan: Patient currently on furosemide 20 mg daily. Condition is chronic and stable will continue to monitor. (7) Hyperparathyroidism: Code(s): E21.3 - Hyperparathyroidism, unspecified Category: Medical Plan: Patient currently on levothyroxine 88 mcg daily. Condition is chronic and stable continue to monitor. Patient being followed by endocrinology. Condition is chronic and stable will continue to monitor. (8) Postoperative hypothyroidism: Code(s): E89.0 - Postprocedural hypothyroidism Category: Medical Plan: Patient currently on levothyroxine 88 mcg daily. Condition is chronic and stable continue to monitor. Patient being followed by endocrinology. Condition is chronic and stable will continue to monitor. Plan Plan Patient was informed and verbally consented to the use of an ambient scribe for clinic note documentation during this visit. 1. Medication Management Prescriptions will be adjusted to 90-day supplies to minimize pharmacy visits. 2. Routine Follow-Up Establish a six-month follow-up schedule to ensure consistent monitoring of health and medications. During our visit, I discussed the patient's medication management issues, specifically the inconvenience of 30-day prescriptions. I have adjusted the prescriptions to 90-day supplies for convenience. We also reviewed her recent lab results, which were normal, indicating stable health. We agreed on the importance of establishing a routine six-month follow-up for ongoing health monitoring and medication management. The patient and her caregivers understand the plan and agree with the proposed schedule. Medications: Changed From vevmmxjmkmd-mekydxols-hhimtvfi 200-62.5-25 mcg (Trelegy Ellipta) 1 inh inhalation DAILY 30 days 60 ea 12RF To sirolsjhffk-wlrmtshhu-kympxakn 200-62.5-25 mcg (Trelegy Ellipta) 1 inh inhalation DAILY 60 ea 2RF Refilled albuterol sulfate 2.5 mg (3 mL) inhalation Q8H PRN 180 mL 0RF for wheezing J41.0 - Simple chronic bronchitis albuterol sulfate 90 mcg/actuation 2 inhalations inhalation Q6H 30 days PRN 18 grams 12RF shortness of breath or wheezing J44.9 - Chronic obstructive pulmonary disease, unspecified apixaban (Eliquis) 2.5 mg PO BID 90 days 180 tabs 3RF denosumab 60 mg subcut [id number] 1 mL 2RF albuterol sulfate 2.5 mg (3 mL) inhalation Q8H PRN 180 mL 1RF for wheezing J41.0 - Simple chronic bronchitis furosemide 20 mg PO DAILY 90 days 90 tabs 1RF metoprolol tartrate 50 mg PO BID 90 days 180 tabs 1RF levothyroxine 88 mcg PO DAILY 90 tabs 2RF Patient Instructions: - Your prescriptions are now for 90 days. This means fewer trips to the pharmacy. - Follow-up with us every six months to keep track of your health. - If you have any new symptoms or concerns, let us know right away. - Keep taking your medications as prescribed. - Make sure to stay active and eat healthy foods.
[2024-10-27 16:11] VITALS: BP 142/72; PULSE 66; TEMP 36.2; O2SAT 97; BMI 24.6
== END 2024-10-27 16:37 | disposition home or self-care (01) ==
LOC: HO.HMCH 16:01
PROVIDERS: PCP Internal Medicine; Visit Provider Physician Assistant Medical
DX: I12.9 Hypertensive chronic kidney disease with stage 1 through stage 4 chronic kidney disease, or unspecified chronic kidney disease (principal); N18.9 Chronic kidney disease, unspecified; J41.0 Simple chronic bronchitis; I48.0 Paroxysmal atrial fibrillation; I50.30 Unspecified diastolic (congestive) heart failure; E78.5 Hyperlipidemia, unspecified; E21.3 Hyperparathyroidism, unspecified; E89.0 Postprocedural hypothyroidism

== ENCOUNTER → 2024-10-27 16:00 | Outpatient (BNVA) | payer MEDICARE, MEDICAID, SELFPAY | PROVIDERS: PCP Internal Medicine; Visit Provider Physician Assistant Medical | DX: I13.0 Hypertensive heart and chronic kidney disease with heart failure and stage 1 through stage 4 chronic kidney disease, or unspecified chronic kidney disease (principal); N18.9 Chronic kidney disease, unspecified; I50.30 Unspecified diastolic (congestive) heart failure; E78.5 Hyperlipidemia, unspecified; J41.0 Simple chronic bronchitis; I48.0 Paroxysmal atrial fibrillation; E21.3 Hyperparathyroidism, unspecified; E89.0 Postprocedural hypothyroidism | CPT/HCPCS: 96127; 99212 ==

== ENCOUNTER 2024-11-07 10:01 | Outpatient (AMB) | payer MEDICARE, MEDICAID, SELFPAY ==
[2024-11-07 10:03] VITALS: BP 114/68; PULSE 61; O2SAT 98; BMI 24.0
--- NOTE | 2024-11-07 10:03 | A.OFFVIS_ITS ---
Vital Signs 11/07/24 10:03 Height 4 ft 11 in Weight 119 lb 0.794 oz BMI 24.0 BP 114/68 Blood Pressure Location Rt brachial Position Sitting Pulse 61 Pulse Source Pulse Oximeter Pulse Oximetry (%) 98 Oxygen Delivery Method Room Air Intake Visit Reasons: COPD Allergies levofloxacin Allergy (Intermediate, Verified 11/07/24 10:09) Dizziness aspirin Allergy (Mild, Verified 11/07/24 10:09) Rash dipyridamole [From Persantine] Allergy (Mild, Verified 11/07/24 10:09) Rash Iodinated Contrast Media [IV Contrast Dye] Allergy (Unknown, Verified 11/07/24 10:09) Unknown HPI Comments Details: The patient is a 84-year-old woman with a known history of COPD. She was a former smoker. She has been noticing worsening respiratory symptoms with ongoing shortness of breath and cough. She only has a short-acting beta agonist that she uses numerous times a day. Her family becomes concerned because they feel that she is over using her rescue medication. She also has a nebulizer machine although does not have any medicine for. She was admitted last time to [facility]. There she did have a CT scan of the chest demonstrating a spiculated nodular density of concern. She also had emphysematous changes. She did follow-up with thoracic surgery at some point in did have a PET scan ordered. Apparently the PET scan department has been trying to schedule them an appointment and [facility] have not been able to do so. Therefore, we given the numbers for them to call and make arrangements for the PET scan as if this is very impo rtant. She already had pulmonary function studies on August and she will be following up with thoracic surgery. She did have a PET scan demonstrating significant FDG activity in the thyroid gland in addition to cervical lymphadenopathy with avid activity. She also had multiple pulmonary nodules some smaller than the accuracy of the PET scan and others for larger with some it activity. Cannot rule out metastatic disease. The patient did have a biopsy of her thyroid gland was positive for malignancy. She will follow-up with her alberene stone setter about this. She does not know the results. I did talk to her family about it. Explained to them that I am concerned that indeed the findings on the CT scan of the chest and PET scan could all be all related to the thyroid. At this point the patient will be following up with endocrinology and then subsequently Oncology. Will have to follow closely this pulmonary nodules. In the meantime the patient did not start her respiratory inhaler. Will have her start trerely. 01/06/2020 the patient has a telephone visit. Overall she is doing well from a respiratory status. She understands she also has pulmonary nodules over following. She continues use the trelegy inhaler. Has not required a short- acting beta agonist. She understands that will following the nodules but patient has not had her CT scan just yet. Initially she was not leaving the house because of the COVID-19 infections. At this point the patient needs to have her CT scan of the chest to make sure that the nodules are not getting any worse. Specially with a history of thyroid cancer. 04/18/2020 the patient has a telephone visit today. Overall the patient has been doing well. She denies any coughing or weight loss or night sweats. We did review her previous CT scans of the chest demonstrating multiple pulmonary nodules. Also had a PET scan demonstrating some mild FDG activity. We did discuss the imaging studies back in the spring and then again in the summer. The patient had not gotten a repeat CT scan. Partly because of the COVID-19 infections. However, she is finally scheduled to have a CT scan of the chest tomorrow. I did spe ak to her grandson. After the CT scan I will talk to them about the results. If the nodules have gotten bigger will need other concerning findings then went to talk about further interventions. Hopefully that is not the case. 06/25/2020 the patient is here for pulmonary follow-up visit. Overall she is doing better. She has been walking better and she is eating better and she is actually not using a wheelchair for the 1st time in well. She states she is feels better after her thyroid medication was changed. In the meantime will monitoring closely her pulmonary nodules. Her last CT scan of the chest was do ne recently and was personally by me. She does have a intermediate size pulmonary nodule in the left upper lobe which is concerning in appearance was as subsolid component. She has had a PET scan in the past. Demonstrating mild FDG activity. At this point the nodule has not significantly changed from last year. However, the appearance of it is indeed a little concerning. Therefore we had repeat a CT scan in 6 months. If they area still abnormal or any change in his appearance consider bronchoscopy to at least assess the airways and to potentially perform a diagnostic intervention. In the meantime she is going to continue with current respiratory therapy which appears to be effective for her. 08/12/2021 the patient is here for a pulmonary follow-up visit. Overall the patient has been doing better. Apparently she did get back from [place] and she left her medications there therefore she was without her respiratory medications for a week or more. Her respiratory status became significantly worse and she had to be taken to the hospital. Patient was given prednisone and ultimately she was able to get her Trelegy inhaler. He was also issues with her nebulizer. But apparently she does have a nebulizer available. I will make sure she has the medication available at home to be able to treat herself she develops any significant congestion. In the meantime the patient did have a CT scan of the chest lost over the summer of 2020 demonstrating a 1.5 cm spiculated nodule in addition to other subsolid nodular densities that need follow-up. The CT scan demonstrated stability of the nodular densities. Therefore will plan to repeat the CT scan a year from her last 1 which will be in December 2021. Will follow-up after the CT scan. If the patient develops any w orsening symptoms prior to that she is to call the office because we may want to look at does density sooner rather than later if that is the case. She is following closely with Endocrinology. Seems to be doing well in remission from her thyroid cancer. Now has significant osteoporosis therefore needs to be very careful with systemic or even inhaled steroids. Currently she is taking a small dose of inhaled steroids with her Trelegy which will continue in view of her recent exacerbation. 04/30/2022 the patient is here for pulmonary follow-up visit. He has been lost to follow-up. She had a CT scan back in December that was supposed to follow-up then. She does have concerning findings including a 1.5 cm spiculated left upper lobe nodular density as well as the other changes stated previously. The patient is high risk with a history of smoking. We did review her CT scan from December 2021 demonstrating again the 1.5 cm spiculated lesion. With her history although this is not changing go ahead and presented at tumor conference. The patient has continued to use her respiratory therapy. she denies any significant shortness of breath or any worsening cough symptoms. Her appetite is good per the patient. She denies any night sweats or weight loss. 07/06/2023 the patient is here for a pulmonary follow-up visit. The patient overall has been doing well. No significant weight loss or night sweats. Her appetite continues to be well. She continues on the Trelegy inhaler that appears to be affecting beneficial. She also has a rescue inhaler that she is she does not require. She did have a CT scan of the chest back in December 2022 demonstrating a 1.5 spiculated lesion which appears to be concerning in appearance. However, has not really changed in size which is reassuring. Will go ahead and repeat the imaging study at this time based on the concerning appearance. I did talk to the family that if the nodule were to increase in size or worsening in appearance that they can consider a diagnostic intervention. I did talk to the patient as well about it. She seems to be interested in pursuing a diagnostic intervention if the nodule changes or becomes concerning. Currently she is living with her grandson. It appears that she is currently sleeping on a sofa because they only have a 1 bedroom apartment. I think it is reasonable specially if she is part of the least that she gets the room specially with her history of COPD and heart failure that she should have a bed that she can position to provide the most support.. 04/12/2024 the patient is here for a pulmonary follow-up visit. She was lost to follow-up for a period of time. The last time we spoke was back in July which she had a CT scan ordered. The CT scan was considered abnormal with a 1.8 cm spiculated nodule and we did go ahead and relay the information to the family in order a an urgent PET scan to better address the area. Now she is presenting after recent follow-up and has sensation at [facility]. She had a COPD exacerbation. She did not have her nebulized medication at home. I will make sure to send her nebulized medication and also will go ahead and increase her Trelegy to the higher dose of 200 mcg. In the meantime explained to them the concerns about this 1.8 cm spiculated lesion. She did not have a PET scan because apparently did not have insurance at the time. Will go ahead and reorder the PET scan urgently since this is a concern. She does have a history of thyroid cancer already. The patient will follow-up after the PET sca n. If she has not issues prior to that she will call for an earlier assessment. 06/06/2024 the patient is here for a pulmonary follow-up visit. Overall she is doing okay. Denies any significant weight loss or night sweats. Denies any worsening cough. She is taking her respiratory medications as prescribed with good effect. She did have the abnormal finding of 1.8 cm spiculated lesion in t he left upper lobe. She did get the PET scan and we did review it. It appeared that the larger nodular density in the left upper lobe had an FDG activity of 2.5 which is just on low threshold of abnormal. This is a nonspecific hypomanic buttock process. The patient has other densities which are with less FDG. Likely inflammatory or infectious. That is likely malignant although still in differential. We did talk about different options as far as CT-guided biopsy versus bronchoscopy. The family and the patient were agreeable to a bronchoscopy to rule out infections in addition to assess for smoldering cancer. 08/01/2024 the patient is here for a pulmonary follow-up visit. She is status post bronchoscopy. We did not see any any endobronchial disease. We did washings and brushings in both negative for malignant cells. Her cultures were positive for Pseudomonas her. I did send her quinolones but she can not tolerated because of dizziness. Therefore she stopped it. She does complaint of chest congestion. Explained to her that we can not treat the Pseudomonas with oral medications. However will go ahead and start her on azithromycin 3 times a week to treat her for chronic bronchitis. Hopefully this decreases the phlegm to some degree. I will give her liquids and she has a hard time with capsules and tablets. In addition to that she get an EKG because she did com plaint of fleeting chest discomfort. She does not have it right now. She also has a rescue 30 therapy. Unfortunately she continues to smoke cigarettes making it more difficult for her respiratory symptoms. The patient will continue the medication will repeat her CT scan in 2-3 months to assess response to therapy. Indeed the patient is high risk for cancer and although she had a negative bron choscopy there still potential concern for cancer. 11/07/2024 the patient is here for pulmonary follow-up visit. Overall she is feeling well. Denies any significant cough. Her azithromycin seems to be helping her some. She still coughs up some clear phlegm. Had grown Pseudomonas in the past. Patient did have a CT scan of the chest I personally reviewed. It was compared to a CAT scan from July 2023. The masslike density has not changed in size although looks a little more solid. In addition to that she also has other new ground-glass densities bilaterally. We did talk about consid ering repeat bronchoscopy specially with robotic bronchoscopy done at [place]. But the patient right now rather wait and get another CAT scan. I will keep her on the azithromycin will plan to repeat the CAT scan in 3 months and see if there is any significant changes. If she decides to have the referral to Interventional Pulmonary sooner than that she can always call at any point before that next appointment. [facility] Medical History (Updated 11/07/24 @ 10:25 by Josh Colby MD) Lung mass Encounter for Medicare annual wellness exam Bite from dog Paroxysmal atrial fibrillation (HFpEF) heart failure with preserved ejection fraction COPD (chronic obstructive pulmonary disease) CKD (chronic kidney disease) HLD (hyperlipidemia) HTN (hypertension) Afib CHF (congestive heart failure) Vitamin D deficiency Pulmonary nodules Osteoporosis Hyperparathyroidism Postoperative hypothyroidism History of thyroid cancer Surgical History History of biopsy History of parathyroidectomy History of total thyroidectomy History of bladder surgery Family History Father Hypertension Mother No problems noted. Social History Housing: Apartment Are you a primary residential child care counselor to a significant other at home: No Do you presently have visiting nurse or other home services: No Alcohol intake: never Patient Tobacco Use Status: Former Tobacco user Tobacco use type: Cigarette Years Smoked: 40 e-Cigarette/Vaping Use: Never Used Second Hand Smoke Exposure: Yes service: No Current occupational status: retired and disabled Cognitive needs: No Hearing needs: No Vision needs: Yes Review of Systems Const Denies increased appetite and Denies night sweats ENT Denies change in voice, Denies lip swelling, Denies mouth pain, Reports nasal congestion, Reports nasal discharge and Denies tongue swelling Card Denies chest pain and Reports dyspnea Resp Reports cough, Reports dyspnea and Reports wheezing GI Denies abdominal pain Reports difficulty voiding Musc Denies no additional complaints Neuro Denies Neuro-related abnormal movements Psych Denies no additional complaints Malcolm/Lymph Denies easy bleeding and Denies lymphadenopathy Aller/Immun Denies lip swelling, Denies tongue swelling and Reports wheezing Physical Exam Vital Signs: Last Vital Signs Pulse 61 11/07/24 10:03 BP 114/68 11/07/24 10:03 Pulse Ox 98 11/07/24 10:03 Oxygen Delivery Method Room Air 11/07/24 10:03 BMI result Body Mass Index 24.0 Const General: alert Neck Neck: Yes normal visual inspection, Yes full ROM and Yes no lymphadenopathy Chest Chest palpation & inspection: normal inspection of the chest Resp Auscultation: diminished lung sounds Cardio Rate: regular rate Rhythm: regular rhythm Heart sounds: S1 normal heart sound present and S2 normal heart sound present GI Palpation (GI): Soft to palpation and nontender Auscultation: normal bowel sounds Skin General skin exam: rashes and/or lesions noted Assessment & Plan Assessment & Plan (1) History of thyroid cancer: Code(s): Z85.850 - Personal history of malignant neoplasm of thyroid Category: Medical (2) Pulmonary nodules: Comment: MOLLY subsolid nodule. Irregular appearance. 1.5 spiculated nodule MOLLY Code(s): R91.8 - Other nonspecific abnormal finding of lung field Category: Medical Plan: CT scan of the chest to be completed tomorrow. We will discuss the findings after I have a chance to review them. (3) COPD (chronic obstructive pulmonary disease): Code(s): J44.9 - Chronic obstructive pulmonary disease, unspecified Category: Medical Qualifiers: COPD type: chronic bronchitis Chronic bronchitis type: simple Qualified Code(s): J41.0 - Simple chronic bronchitis (4) Lung mass: Code(s): R91.8 - Other nonspecific abnormal finding of lung field Category: Medical Plan Continue Trelegy increase 200 short-acting beta agonist as needed Azithromycin MWF nebulized therapy as needed EKG Repeat CT chest 3 months consider IP referral for Robotic bronchoscopy, family would like to wait till the next CT chest follow-up in 3-4 months Orders: Orders CT chest wo IV con 01/30/25 R91.8 - Other nonspecific abnormal finding of lung field Medications: Refilled azithromycin 500 mg (12.5 mL) PO 3XW 162.498 mL 6RF 30 days Coding Level of Care Code Est Pt Level 4 (80961) Complex EM visit Add On G2211 Diagnoses History of thyroid cancer Z85.850 Pulmonary nodules R91.8 Simple chronic bronchitis J41.0 COPD type: chronic bronchitis Chronic bronchitis type: simple Lung mass R91.8 Time Spent (min) 17
--- OUTSIDE RECORDS SUMMARY | 2024-11-07 11:00 | XMS_ITS | Clinical Summary ---
Author Organization [facility] Address [address] [place] [address] Phone Care Team Providers Care Aerodynamics Professor Name Role Phone Pir CANDY Marks Primary [...] 0 Refills, Maintenance, 01/20/22 9:41:00 EDT, Tablet, [facility], Partial fill upon patient [...] patient's age to complete this topic Insurance [address] [place] [id number] [facility] ([id number]) D[place]OTHY WOOTEN [id number] [facility] ([id number]) [place] [id number] Care Teams Aerodynamics Professor Relationship Specialty Start Date End Date Pir Marks MD PCP - General Nephrology 03/11/22
== END 2024-11-07 10:26 | disposition home or self-care (01) ==
LOC: HO.HPS 10:02
PROVIDERS: PCP Internal Medicine; Visit Provider Hospitalist
DX: Z85.850 Personal history of malignant neoplasm of thyroid (principal); R91.8 Other nonspecific abnormal finding of lung field; J41.0 Simple chronic bronchitis
CPT/HCPCS: 99214; G2211

== ENCOUNTER → 2024-11-07 10:01 | Outpatient (BNVA) | payer MEDICARE, MEDICAID, SELFPAY | PROVIDERS: PCP Internal Medicine; Visit Provider Hospitalist | DX: J41.0 Simple chronic bronchitis (principal); R91.8 Other nonspecific abnormal finding of lung field; Z85.850 Personal history of malignant neoplasm of thyroid | CPT/HCPCS: 99212 ==

== ENCOUNTER 2025-01-31 09:37 | Outpatient (REF) | payer MEDICARE, MEDICAID, SELFPAY ==
--- OUTSIDE RECORDS SUMMARY | 2025-01-31 10:42 | XMS_ITS | Clinical Summary ---
Author Organization [facility] Address [address] [place] [address] Phone Care Team Providers Care Geothermal Powerplant Supervisor Name Role Phone Physician, No Pcp Primary [...] 10/30/2020, 10/01/2020 Cholesterol Screening (Lipid Panel) 04/20/2024 Falls Risk Assessment 04/20/2024 Hypertension/CHF/CAD Annual BMP Blood Test 04/20/2024 Medicare Annual Wellness Visit 04/20/2024 Osteoporosis Screening (Bone Density Screening) 04/20/2024 Social Influencers of Health Screening 04/20/2024 Depression Screening 06/01/2024 Influenza Vaccine (#1) 2025 2, 04/20/2018, 06/22/2015 DTaP,Tdap,and Td Vaccines (2 - [...] Insurance MEDICARE MEDICAID - [place] Care Teams Geothermal Powerplant Supervisor Relationship Specialty Start Date End Date Physician, No Pcp PCP - General 04/25/24
--- OUTSIDE RECORDS SUMMARY | 2025-01-31 10:42 | XMS_ITS | Clinical Summary ---
Author Organization [facility] Address [address] [place] [address] Phone Care Team Providers Care Admissions Evaluator Name Role Phone Pir CANDY Marks Primary [...] 0 Refills, Maintenance, 01/20/22 9:41:00 EDT, Tablet, [facility], Partial fill upon patient request [...] Date Last Done Comments Influenza Vaccine (#1) 2025 Pneumococcal Vaccine: 50+ Years Completed 04/30/2017, 07/05/2015 Hepatitis B Vaccine Aged Out No longe r eligible based on patient's age to complete this topic Insurance [address] [place] [id number] [facility] ([id number]) D[place]OTHY WOOTEN [id number] [facility] ([id number]) [place] WO[place] [phone] Care Teams Admissions Evaluator Relationship Specialty Start Date End Date Pir Marks MD PCP - General Nephrology 03/11/22
--- OUTSIDE RECORDS SUMMARY | 2025-01-31 10:42 | XMS_ITS | Clinical Summary ---
Author Organization [address] Address [address] [place] [id number] Care Team Providers Care Senior Linux Unix Engineer Name Role Phone Obtain, Unable To Primary [...] 80 06/20/2015 11:58 PM EST Temperature 36.9 C (98.5 F) 06/20/2015 11:58 PM EST Respiratory Rate 18 06/20/2015 11:58 PM EST [...] cancer screening Discontinued Cervical cancer screening Discontinued Colon cancer screening, Colonoscopy Discontinued Meningococcal Vaccine Aged Out No michelle tiffanie eligible based on patient's age to complete this topic Insurance MEDICARE MEDICARE MEDICARE MEDICARE Care Teams Senior Linux Unix Engineer Relationship Specialty Start Date End Date Obtain, Unable To PCP - General 06/20/15
[2025-01-31 10:58] LABS: Albumin Level 3.7 g/dL (3.5-5.0); Calcium 8.7 mg/dL (8.4-10.2); Estimated Glomerular Filt Rate 47
== END 2025-01-31 09:38 | disposition home or self-care (01) ==
LOC: HO.LAB 09:37
PROVIDERS: PCP Internal Medicine; Visit Provider Student in an Organized Health Care Education/Training Program
DX: M81.0 Age-related osteoporosis without current pathological fracture (principal)
CPT/HCPCS: 36415; 82040; 82306; 82310; 82565

== ENCOUNTER 2025-02-06 11:11 | Outpatient (AMB) | payer MEDICARE, MEDICAID, SELFPAY ==
--- NOTE | 2025-02-06 11:20 | MHC.OFFVIS ---
Vital Signs 02/06/25 11:21 Height 4 ft 11 in BP 112/64 Blood Pressure Location Lt brachial Position Sitting Pulse 60 Pulse Source Pulse Oximeter Pulse Oximetry (%) 98 Oxygen Delivery Method Room Air Intake Visit Reasons: osteoporosis/thyroid/ Prolia Intake Note: Patient present today for osteoporosis/thyroid and Prolia. Broom Worker Required: Yes Broom Worker Language: Hand Wrapper Operator Services: Broom Worker Offered & Declined Accompanied by: Grand Child Allergies levofloxacin Allergy (Intermediate, Verified 02/06/25 11:24) Dizziness aspirin Allergy (Mild, Verified 02/06/25 11:24) Rash dipyridamole (From Persantine) Allergy (Mild, Verified 02/06/25 11:24) Rash Iodinated Contrast Media (IV Contrast Dye) Allergy (Unknown, Verified 02/06/25 11:24) Unknown Medication List - Last Reconciled 02/06/25 by Alise Larkin MD albuterol sulfate 90 mcg/actuation 2 inhalations inhalation Q6H PRN 30 days albuterol sulfate 2.5 mg (3 mL) inhalation Q8H PRN apixaban (Eliquis) 2.5 mg PO BID 90 days azithromycin 500 mg (12.5 mL) PO 3XW 30 days denosumab 60 mg subcut [id number] 200-62.5-25 mcg (Trelegy Ellipta) 1 inh inhalation DAILY furosemide 20 mg PO DAILY 90 days levothyroxine 88 mcg PO DAILY metoprolol tartrate 50 mg PO BID 90 days HPI Comments Details: 84-year-old female coming in today for follow up of osteoporosis and history of thyroid cancer status post total thyroidectomy with Dr. 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 JONATHAN initial risk? Currently JONATHAN excellent response to therapy. Here today with grandson and son in law. who is doing the interpretation Thyroid cancer 2019: Initially presented due to severe osteoporosis and hyperparathyroidism, and ultrasound of the neck was checked to evaluate for parathyroid adenoma which revealed a large 3.5 cm right-sided thyroid nodule as well as multiple enlarged right cervical lymph nodes. Status post PET-CT of the pulmonary nodule which also revealed a right-sided thyroid nodule with the intense FDG uptake with max SUV 11.6. She was also found to have multiple FDG avid cervical lymph nodes most notably 1.6 cm left cervical level 2 lymph node. Multiple bilateral pulmonary nodules that were FDG avid as well as bladder lesion. 06/27/2019: Status post FNA biopsy of a right-sided 3.5 cm thyroid nodule which came back as suspicious for follicular neoplasm, Hurthle cell type, Cascade category 4. Also status post FNA of a left cervical level 2 lymph node that is cytology revealing just lymphocytes. Flow cytometry revealed normal-appearing lymphocytes. 11/09/2019: Status post total thyroidectomy along with removal of hyperplastic left inferior parathyroid gland as well. With pathology showing 0.1 cm micro PTC, the remainder of the gland was read as nodular follicular hyperplasia with Hurthle cell changes. No lymph nodes were excised. AJCC stage I pT1a NX, JONATHAN initial risk? 01/12/2020: TSH 16.38, TG 0.6, TG antibody negative 02/24/2020: Thyrogen stimulated I 131 whole-body scan revealed faint uptake within the neck as well as intense focus of uptake within the face to the right of the midline corresponding to likely the ethmoid our nurse for annoyed sinus. CT head revealed this to be a mucous retention cyst. 02/22/2020: TSH 377, negative TG antibodies, TG 0.3 07/24/2023: TSH 1.22, free T4 1.21, TG less than 0.1, TG antibody less than 1 She also has a spiculated lesion in her lung, following with pulmonology, last follow up 11/07/2024, where it was advised to have robotic bronchoscopy but patient preferred to have follow up CT scan. Osteoporosis History of hyperparathyroidism Diagnosed with severe osteoporosis? Unknown year apparently was on Fosamax for many years Then diagnosed with primary hyperparathyroidism unknown year, and then supposedly was lost to follow up 12/10/2018: DEXA scan showed severe osteoporosis of the spine with T-score of -6, hips were osteoporotic with T-score of-3.4, no forearm bone density was checked. 11/09/2019: Status post left inferior hyperplastic parathyroid gland resection Fosamax stopped April 2020? Risk factors: Prior prednisone use, anticoagulated with Eliquis due to AFib, history of hyperparathyroidism, past smoker No history of kidney stones No family history of osteoporosis or hip fracture Menarche: Age 15, , did not breast wheat, unclear reach of menopause Fracture history: None Dental:not uptodate, hasnt seen in 1-2 years , all dentures Vitamin-D: stopped in the past 6 months? PCP ? vitamin D 25 January 2025 Calcium: milk 6 to 7 cups a day , cheese : yes often , yogurt: here and there Treatment history: Unclear, was on Fosamax for many years? Prolia: Started January 2023, due for injection 5 today? 02/06/25 Last DEXA scan 09/13/2024 with T-score of -6.3 at the lumbar spine indicative of osteoporosis, with a 4.5% increase compared to previous exam from 2020, left total hip T-score-3.6 also indicative of osteoporosis with stable bone density compared to 2020 with a only 0.2% increase, left femoral neck T-score-3.3 also indicative of osteoporosis with a decrease of-2% compared to 2020 also consistent with stability. Physical exam General: sitting comfortably in no acute distress HEENT: normocephalic/atraumatic, Neck: supple, symmetrical, Cardiac: normal heart sounds Pulm: normal breath sounds B/L, no added breath sounds Abd: not distended, no tenderness Extremities: no edema, no signs of myxedema Neuro: AAO x3, Speech: normal, no facial droop, moving all 4 extremities Laboratory Tests 05/04/19 01/12/20 04/18/20 10:48 15:30 15:05 Creatinine Estimated GFR Calcium Phosphorus Magnesium Albumin N-Telopeptide X-linked 25-OH Vitamin D Total TSH 25.01 H Free T4 1.07 1.05 0.92 Thyroglobulin 0.6 L PTH Intact Thyroglobulin Antibody <1 09/07/20 11/06/20 08/05/21 14:09 12:05 12:53 Creatinine Estimated GFR Calcium Phosphorus Magnesium Albumin N-Telopeptide X-linked 25-OH Vitamin D Total TSH 0.09 L 0.25 L 10.25 H Free T4 1.51 1.48 0.92 Thyroglobulin PTH Intact Thyroglobulin Antibody 11/11/21 03/21/22 04/08/22 12:00 17:30 16:00 Creatinine Estimated GFR Calcium Phosphorus Magnesium Albumin N-Telopeptide X-linked 52 25-OH Vitamin D Total TSH 2.16 2.05 Free T4 1.41 1.28 Thyroglobulin <0.1 L <0.1 L PTH Intact Thyroglobulin Antibody <1 <1 01/08/23 01/30/23 07/24/23 08:43 07:00 10:29 Creatinine Estimated GFR Calcium 9.4 Phosphorus 3.9 Magnesium Albumin 3.5 N-Telopeptide X-linked 45 25-OH Vitamin D Total 41.1 TSH 2.45 1.22 Free T4 1.20 1.21 Thyroglobulin <0.1 PTH Intact 48 Thyroglobulin Antibody <1 06/14/24 08/03/24 01/31/25 12:18 07:08 10:00 Creatinine 1.10 Estimated GFR 47 Calcium 9.4 8.7 D Phosphorus Magnesium 2.1 Albumin 3.7 N-Telopeptide X-linked 25-OH Vitamin D Total 37.7 27.2 L TSH 4.31 H 0.79 Free T4 1.33 1.38 Thyroglobulin PTH Intact Thyroglobulin Antibody I-131 whole body scan 02/24/2020: Imaging shows a focus of increased metabolic activity in the midline of the lower neck just slightly to the left of midline. This could represent some residual thyroid tissue or disease. Also there is a fairly intense focus of increased metabolic activity in the face just to the right of the midline anteriorly. This could be within the maxillary sinus or ethmoid sinus. There is activity demonstrated in the region of the stomach, bowel and bladder which is certainly within normal limits for by a distribution. Impression: Activity in the neck which is likely the result of residual thyroid tissue/disease. Activity in the face which is suspicious for metastatic disease. Correlation with CT with IV contrast would be helpful. PET CT 05/12/19: There is intensely increased FDG activity bilaterally in the palatine tonsils, but these appear symmetrically enlarged bilaterally on the CT images. The FDG activity is very homogeneous bilaterally, showing SUV Max 13.8 and a focus in the left side, slice 20/223. Bilateral FDG avid cervical level IIa and IIb lymph nodes are present, and most of these are not enlarged, but the most prominent is a lymph node in the left to a level showing SUV Max 6.2, slice 23/223 corresponding to a lymph node on the CT images that measures 1.6 x 0.9 cm in largest transverse dimensions. There are additional bilateral FDG avid cervical level 3 and 4 lymph nodes present, and all of these appear normal in size. There is almost complete opacification of the right maxillary sinus and a mucosal retention cyst replaces approximately one half the volume of the left maxillary sinus. There is no abnormal FDG activity on the left, the diffuse FDG activity is present of mild intensity in the right maxillary sinus, predominantly peripherally. There is an intensely FDG avid right thyroid nodule, showing SUV Max 11.6, slice 37/223. This corresponds to a hypodense nodule on the CT images that measures 3.3 x 2.9 cm in largest transverse dimensions, and approximately 2.7 cm cephalocaudad. This contains some punctate central calcifications. No other foci of abnormal FDG activity are present in the neck or visualized head. All the other activity in this region appears physiological. THORAX: Multiple pulmonary nodules are present. Most of these are small subcentimeter nodules, there is a dominant nodule which abuts the interlobar fissure in the left upper lobe which is mild FDG activity, SUV Max 2.3, slice 55/292, corresponding to a nodule on the CT images that measures 1.5 x 1.1 cm in largest transverse dimensions. Child Protective Services Social Worker of additional small nodules visualized include: A 0.3 cm nodule laterally in the left upper lobe, slice 80/292; a pleural-based 0.5 cm lateral right lower lobe nodule, slice 86/292; a 0.3 cm nodule posteriorly in the left upper lobe abutting the major interlobar fissure, slice 60/292; a 0.3 cm nodule abutting the major interlobar fissure in the right upper lobe, slice 56/292; and to adjacent nodules posteriorly in the right upper lobe measuring 0.8 cm and 0.3 cm in slice 53/292 and an additional 0.3 cm nodule posteriorly in the right upper lobe, slice 51/292. All of these additional nodules are too small to be characterized on the FDG PET images. There is by lateral apical scarring with no associated abnormal FDG activity. There is no pleural or pericardial fluid, or pneumothorax. There is no mediastinal, supraclavicular, or axillary lymphadenopathy. ABDOMEN AND PELVIS: No foci of abnormal FDG activity are present in the abdomen or pelvis. There is mild diffuse FDG activity throughout the gastrointestinal tract without a suspicious focal component. There is diverticulosis without evidence of diverticulitis. The hollow viscera are otherwise unremarkable. The liver and spleen are unremarkable. The gallbladder has been resected and there are metallic surgical clips in the gallbladder bed. There is a hypodense cyst laterally in the mid left kidney, and this is markedly FDG photopenic. The kidneys are otherwise unremarkable. The adrenal glands and pancreas are unremarkable. There is no retroperitoneal, mesenteric, pelvic or inguinal lymphadenopathy. There is some calcified uterine fibroids. There is a possible soft tissue mass measuring 2.0 x 1.8 cm in the posterior bladder wall that is not well delineated on these nondiagnostic CT images and is difficult to evaluate for FDG accumulation because of the intense activity within the bladder due to physiological excreted FDG activity. The pelvic organs are otherwise unremarkable. MUSCULOSKELETAL: No foci of abnormal FDG activity are present in the osseous structures. There is a severe thoracic kyphosis and some degenerative changes are present in the spine but no suspicious sclerotic or lytic lesions are visualized. VASCULAR: Diffuse vascular calcifications including coronary are noted. EXAMINATION: DXA BONE DENSITY AXIAL 09/13/24 HISTORY: M81.0 - Age-related osteoporosis without current pathological fracture TECHNIQUE: Novatek Dual energy absorptiometry (DEXA) of the lumbar spine, total left hip, and femoral neck was performed. COMPARISON: Comparison is made with the prior examination dated 12/06/2020. FINDINGS: The bone mineral density of the lumbar spine is 0.422 with a T-score of -6.3, and a Z-score of -3.8. This is indicative of osteoporosis. This represents a BMD change of 4.5% compared to the prior exam. This is not statistically significant. The bone mineral density of the left total hip is 0.560 with a T-score of -3.6, and a Z-score of -0.9. This is indicative of osteoporosis. This represents a BMD change of 0.2% compared to the prior exam. This is not statistically significant. The bone mineral density of the left femoral neck is 0.574 with a T-score of -3.3, and a Z-score of -0.6. This is indicative of osteoporosis. This represents a BMD change of -2.0% compared to the prior exam. FRACTURE RISK: The FRAX index suggests a ten year probability of major osteoporotic fracture of 25.7%, and of hip fracture 10.2%. MM/XR DEXA axial skeleton IMPRESSION: Based on bone mineral density, and according to World Health Organization (WHO) criteria, the diagnosis is consistent with osteoporosis. All bone density values are in grams per centimeter squared (g/cm2). Statistically, 68% of repeat scans fall within 1 SD (+/- 0.010 g/cm2 for AP spine L1-L4) and 1 SD (+/- 0.012 g/cm2 for femur total) FRAX is a trademark of the [employer] [place] for Metabolic Bone Disease, a World Health Organization (WHO) Collaborating Center. Electronically signed by: Tyler Ford MD 09/13/2024 11:51 AM EDT RP [facility] Medical History (Updated 11/07/24 @ 10:25 by Josh Colby MD) Lung mass Encounter for Medicare annual wellness exam Bite from dog Paroxysmal atrial fibrillation (HFpEF) heart failure with preserved ejection fraction COPD (chronic obstructive pulmonary disease) CKD (chronic kidney disease) HLD (hyperlipidemia) HTN (hypertension) Afib CHF (congestive heart failure) Vitamin D deficiency Pulmonary nodules Osteoporosis Hyperparathyroidism Postoperative hypothyroidism History of thyroid cancer Surgical History History of biopsy History of parathyroidectomy History of total thyroidectomy History of bladder surgery Family History Father Hypertension Mother No problems noted. Social History Housing: Apartment Are you a primary nurse behavioral health care to a significant other at home: No Do you presently have visiting nurse or other home services: No Alcohol intake: never Patient Tobacco Use Status: Former Tobacco user Tobacco use type: Cigarette Years Smoked: 40 e-Cigarette/Vaping Use: Never Used Second Hand Smoke Exposure: Yes service: No Current occupational status: retired and disabled Cognitive needs: No Hearing needs: No Vision needs: Yes Physical Exam Vital Signs: Last Vital Signs Pulse 60 02/06/25 11:21 BP 112/64 02/06/25 11:21 Pulse Ox 98 02/06/25 11:21 Oxygen Delivery Method Room Air 02/06/25 11:21 Office Meds Prolia 60 mg/mL subcutaneous syringe Performing Provider: Alise Larkin MD Performing Location: [facility] [place] Endocrinology Administered by: Myah Pak RN on 02/06/25 11:53 Dose Route Admin Location Dispensed Lot Number Expiration Date [employer] 60 mg subcut left upper arm 1 mL [id number] 07/30/27 86131-482-82 [employer] Total Dispensed Waste 1 mL 0 % Comments: Patient tolerated injection well, grandson denied any problems with previous injections. Patient scheduled for OV and prolia injection in x6 months. Labs reviewed by MD prior to injection. Assessment & Plan Assessment & Plan (1) History of thyroid cancer: Code(s): Z85.850 - Personal history of malignant neoplasm of thyroid Category: Medical Plan: 84-year-old female coming in today for follow up of history of thyroid cancer status post total thyroidectomy 11/09/[address] 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 , currently JONATHAN excellent response to therapy. She has recently had undetectable TG and TG antibody levels with last set of labs done in July 2023. No recent ultrasound of the neck done. At this time we will plan to see her back in July 2025 with tumor markers as well as ultrasound of the neck. She does have a suspicious pulmonary spiculated lesion for which she is following with pulmonology, last seen October 2024. Given JONATHAN excellent response to therapy, TSH goal 0.5-2. Last TSH July 2024 within goal at 0.79. Plan: -continue levothyroxine 88 mcg daily -ordered TSH, free T4, TG, TG antibody levels to be done 2 weeks prior to follow up in July 2025 -ordered ultrasound of the neck to be done in July 2025 prior to follow up in July 2025 -follow up in July 2025 (2) Postoperative hypothyroidism: Code(s): E89.0 - Postprocedural hypothyroidism Category: Medical Plan: Given JONATHAN excellent response to therapy, TSH goal 0.5-2. Last TSH July 2024 within goal at 0.79. Plan: -continue levothyroxine 88 mcg daily -ordered TSH, free T4, TG, TG antibody levels to be done 2 weeks prior to follow up in July 2025 (3) Osteoporosis: Code(s): M81.0 - Age-related osteoporosis without current pathological fracture Category: Medical Qualifiers: Osteoporosis type: unspecified Presence of current pathological fracture: unspecified Qualified Code(s): M81.0 - Age-related osteoporosis without current pathological fracture Plan: 84-year-old female with a history of osteoporosis, unclear your of diagnosis, with multiple risk factors including age, being postmenopausal, prior steroid use, anticoagulation use, history of hyperparathyroidism status post left inferior hyperplastic parathyroid gland resection 11/09/2019, past smoker who was on pump Fosamax supposedly for many years stopped April 2020, then subsequently started on Prolia January 2023, due for injection 5 today? 02/06/2025. Last DEXA scan 09/13/2024 with T-score of -6.3 at the lumbar spine indicative of osteoporosis, with a 4.5% increase compared to previous exam from 2020, left total hip T-score-3.6 also indicative of osteoporosis with stable bone density compared to 2020 with a only 0.2% increase, left femoral neck T-score-3.3 also indicative of osteoporosis with a decrease of-2% compared to 202 also consistent with stability. At this time we will continue the Prolia, she has not had any fractures. She is not up-to-date with dental care but she has all dentures. Her vitamin-D level was low at 27 from December 2024, she has stopped taking vitamin-D supplements recently. We will restart. Plan: -continue Prolia injection every 6 months -restart vitamin-D 1000 units daily -continue to maintain good nutritional intake of calcium -next bone density would be due August 2026 -plan to repeat bone resorption markers with the next set of labs prior to follow up in July 2025 (4) Vitamin D deficiency: Code(s): E55.9 - Vitamin D deficiency, unspecified Category: Medical Plan: See above Plan I spent 30 minutes in reviewing the record, seeing the patient and documenting in the medical record. Orders: Orders Phosphorus 07/10/25 E21.3 - Hyperparathyroidism, unspecified, E55.9 - Vitamin D deficiency, unspecified, E89.0 - Postprocedural hypothyroidism, M81.0 - Age-related osteoporosis without current pathological fracture, Z85.850 - Personal history of malignant neoplasm of thyroid Vitamin D 25-OH Total 07/10/25 E21.3 - Hyperparathyroidism, unspecified, E55.9 - Vitamin D deficiency, unspecified, E89.0 - Postprocedural hypothyroidism, M81.0 - Age-related osteoporosis without current pathological fracture, Z85.850 - Personal history of malignant neoplasm of thyroid Thyroglobulin Tumor Marker 07/10/25 E21.3 - Hyperparathyroidism, unspecified, E55.9 - Vitamin D deficiency, unspecified, E89.0 - Postprocedural hypothyroidism, M81.0 - Age-related osteoporosis without current pathological fracture, Z85.850 - Personal history of malignant neoplasm of thyroid Collagen Crosslinks NTX 07/10/25 E21.3 - Hyperparathyroidism, unspecified, E55.9 - Vitamin D deficiency, unspecified, E89.0 - Postprocedural hypothyroidism, M81.0 - Age-related osteoporosis without current pathological fracture, Z85.850 - Personal history of malignant neoplasm of thyroid AMB Denosumab Injection Practice Supplied Today M81.0 - Age-related osteoporosis without current pathological fracture Albumin Level 07/10/25 E21.3 - Hyperparathyroidism, unspecified, E55.9 - Vitamin D deficiency, unspecified, E89.0 - Postprocedural hypothyroidism, M81.0 - Age-related osteoporosis without current pathological fracture, Z85.850 - Personal history of malignant neoplasm of thyroid Alkaline Phosphatase Bone 07/10/25 E21.3 - Hyperparathyroidism, unspecified, E55.9 - Vitamin D deficiency, unspecified, E89.0 - Postprocedural hypothyroidism, M81.0 - Age-related osteoporosis without current pathological fracture, Z85.850 - Personal history of malignant neoplasm of thyroid Collagen Type I C-Telopeptide 07/10/25 E21.3 - Hyperparathyroidism, unspecified, E55.9 - Vitamin D deficiency, unspecified, E89.0 - Postprocedural hypothyroidism, M81.0 - Age-related osteoporosis without current pathological fracture, Z85.850 - Personal history of malignant neoplasm of thyroid Calcium 07/10/25 E21.3 - Hyperparathyroidism, unspecified, E55.9 - Vitamin D deficiency, unspecified, E89.0 - Postprocedural hypothyroidism, M81.0 - Age-related osteoporosis without current pathological fracture, Z85.850 - Personal history of malignant neoplasm of thyroid Creatinine 07/10/25 E21.3 - Hyperparathyroidism, unspecified, E55.9 - Vitamin D deficiency, unspecified, E89.0 - Postprocedural hypothyroidism, M81.0 - Age-related osteoporosis without current pathological fracture, Z85.850 - Personal history of malignant neoplasm of thyroid Thyroid Stimulating Hormone 07/10/25 E21.3 - Hyperparathyroidism, unspecified, E55.9 - Vitamin D deficiency, unspecified, E89.0 - Postprocedural hypothyroidism, M81.0 - Age-related osteoporosis without current pathological fracture, Z85.850 - Personal history of malignant neoplasm of thyroid Free T4 (Free Thyroxine) 07/10/25 E21.3 - Hyperparathyroidism, unspecified, E55.9 - Vitamin D deficiency, unspecified, E89.0 - Postprocedural hypothyroidism, M81.0 - Age-related osteoporosis without current pathological fracture, Z85.850 - Personal history of malignant neoplasm of thyroid Thyroglobulin 07/10/25 E21.3 - Hyperparathyroidism, unspecified, E55.9 - Vitamin D deficiency, unspecified, E89.0 - Postprocedural hypothyroidism, M81.0 - Age-related osteoporosis without current pathological fracture, Z85.850 - Personal history of malignant neoplasm of thyroid Thyroglobulin Antibodies 07/10/25 E21.3 - Hyperparathyroidism, unspecified, E55.9 - Vitamin D deficiency, unspecified, E89.0 - Postprocedural hypothyroidism, M81.0 - Age-related osteoporosis without current pathological fracture, Z85.850 - Personal history of malignant neoplasm of thyroid US soft tiss head and/or neck 07/10/25 Z85.850 - Personal history of malignant neoplasm of thyroid Medications: New cholecalciferol (vitamin D3) 25 mcg PO DAILY 90 caps 3RF 3 months Refilled levothyroxine 88 mcg PO DAILY 90 tabs 3RF Patient Instructions: Continue Prolia injections every 6 months Start vitamin D 1000 units daily Continue good dairy intake Continue levothyroxine 88 mcg daily Do fasting blood work and second urine of the day 2 weeks prior to next appointment in July 2025 Do ultrasound neck sometime in Jul 2025 , someone will call you to schedule this, please make sure it is done a few weeks before next follow up in July 2025 Continuar con las inyecciones de Prolia cada 6 meses. Iniciar con 1000 unidades diarias de vitamina D. Continuar con un consumo adecuado de l?cteos. Continuar con 88 mcg diarios de levotiroxina. Realizar an?lisis de car en ayunas y la segunda orina del d?a 2 semanas antes de la pr?xima giuliano en 2025. Realizar alok ecograf?a de joana en 2025. Se le llamar? para programarla. Por favor, aseg?rese de que se realice unas semanas antes de la pr?xima giuliano de seguimiento en 2025. Coding Level of Care Code Est Pt Level 4 (26584) Complex EM visit Add On G2211 Diagnoses History of thyroid cancer Z85.850 Postoperative hypothyroidism E89.0 Osteoporosis, unspecified osteoporosis type, unspecified pathological fracture presence M81.0 Osteoporosis type: unspecified Presence of current pathological fracture: unspecified Vitamin D deficiency E55.9 Time Spent (min) 30
[2025-02-06 11:21] VITALS: BP 112/64; PULSE 60; O2SAT 98
--- OUTSIDE RECORDS SUMMARY | 2025-02-06 13:54 | XMS_ITS | Clinical Summary ---
Author Organization [address] Address [address] [place] [id number] Care Team Providers Care Ball Ender Name Role Phone Obtain, Unable To Primary [...] 1-dose 75+ series) 2015 Covid-19 vaccine series ( season) 2025 Influenza vaccine 01/30/2025 Breast cancer screening Discontinued Cervical cancer screening Discontinued Colon cancer screening, Colonoscopy Discontinued Meningococcal B Vaccine Aged Out No l onger eligible based on patient's age to complete this topic Meningococcal Vaccine Aged Out No michelle tiffanie eligible based on patient's age to complete this topic Insurance MEDICARE MEDICARE MEDICARE MEDICARE Care Teams Ball Ender Relationship Specialty Start Date End Date Obtain, Unable To PCP - General 06/20/15
--- OUTSIDE RECORDS SUMMARY | 2025-02-06 13:54 | XMS_ITS | Clinical Summary ---
Author Organization [facility] Address [address] [facility] [address] [place] [address] Phone Care Team Providers Care Postal Sorting Officer Name Role Phone Pir CANDY Marks Primary [...] 0 Refills, Maintenance, 01/20/22 9:41:00 EDT, Tablet, [facility], Partial fill upon patient [...] patient's age to complete this topic Insurance [address] [place] [id number] [facility] ([id number]) D[place]OT[place] WOOTEN [id number] [facility] ([id number]) [place] [id number] Care Teams Postal Sorting Officer Relationship Specialty Start Date End Date Pir Marks MD PCP - General Nephrology 03/11/22
--- OUTSIDE RECORDS SUMMARY | 2025-02-06 13:54 | XMS_ITS | Clinical Summary ---
Author Organization [facility] Address [address] [place] [address] Phone Care Team Providers Care Retail Project Merchandiser Name Role Phone Physician, No Pcp Primary [...] Insurance MEDICARE MEDICAID - [place] Care Teams Retail Project Merchandiser Relationship Specialty Start Date End Date Physician, No Pcp PCP - General 04/25/24
== END 2025-02-06 11:52 | disposition home or self-care (01) ==
LOC: HO.ENCR 11:12
PROVIDERS: PCP Internal Medicine; Visit Provider Student in an Organized Health Care Education/Training Program
DX: Z85.850 Personal history of malignant neoplasm of thyroid (principal); E89.0 Postprocedural hypothyroidism; M81.0 Age-related osteoporosis without current pathological fracture; E55.9 Vitamin D deficiency, unspecified
CPT/HCPCS: 99214; G2211

== ENCOUNTER → 2025-02-06 11:11 | Outpatient (BNVA) | payer MEDICARE, MEDICAID, SELFPAY | PROVIDERS: PCP Internal Medicine; Visit Provider Student in an Organized Health Care Education/Training Program | DX: M81.0 Age-related osteoporosis without current pathological fracture (principal); E89.0 Postprocedural hypothyroidism; E55.9 Vitamin D deficiency, unspecified; Z85.850 Personal history of malignant neoplasm of thyroid | CPT/HCPCS: 96372; 99212; J0897 ==

== ENCOUNTER 2025-05-01 16:45 | Outpatient (REF) | payer MEDICARE, MEDICAID, SELFPAY ==
--- NOTE | ~2025-05-01 | CT_ITS ---
EXAMINATION: CT CHEST WITHOUT CONTRAST CLINICAL INFORMATION: R91.8 - Other nonspecific abnormal finding of lung field COMPARISON: September 18, 2024 TECHNIQUE: Multidetector volumetric CT imaging of the chest was done. Axial MIP volume rendering provided. Sagittal and coronal reformatted images were obtained. This CT examination was performed using dose optimization techniques as appropriate, variously including the following: *Automated exposure control *Adjustment of mA and/or kV according to patient size (this includes techniques or standardized protocols for targeted exams where dose is matched to indication/reason for exam; i.e. extremities or head) *Use of iterative reconstruction technique FINDINGS: LUNGS: Sagittal image 33/166: Again seen is a mass with spiculated margins in the left apex measuring 2.0 x 4.5 cm, previously 2.0 x 4.4 cm. There is retraction of the adjacent major fissure. Axial CT 5 Image 32: Groundglass density in the posterior right upper lobe measures 11 x 17 mm, previously 10 x 16 cm. Image 32: Superior left lower lobe nodule measures 6 x 6 mm, previously 7 x 7 mm. There are patchy ground glass densities in the right upper lobe appears similar. Numerous peripheral pulmonary nodules are again identified. There is mild bronchiectasis in the lung bases. MEDIASTINUM: Moderate vascular opacifications are present. CORONARY ARTERY CALCIFICATION: Present PLEURA: There is no pleural effusion. No pleural mass or thickening. AXILLA: No lymphadenopathy. UPPER ABDOMEN: There are clips in the gallbladder fossa. There are nonobstructing stones in the right kidney. There are simple renal cysts involving the left kidney. OSSEOUS STRUCTURES: Hyperkyphosis and dextroscoliosis is again noted. CT/CT chest wo IV con IMPRESSION: Stable pulmonary changes. Recommend continued monitoring of stable but suspicious appearing spiculated mass in the left upper lobe, multiple subpleural pulmonary nodules, and groundglass densities primarily in the right upper lobe. CT had a similar appearance on August 18, 2023. Consider next CT in 8-12 months. PET/CT has been recommended in the past and remains a good option. Biopsy could also be considered. Nonobstructing kidney stones are present on the right. Electronically signed by: Mor Rodas MD 05/01/2025 05:40 PM [facility]
--- OUTSIDE RECORDS SUMMARY | 2025-05-01 18:50 | XMS_ITS | Clinical Summary ---
Author Organization [facility] Address [address] [place] [address] Phone Care Team Providers Care Fraud Prevention Analyst Name Role Phone Physician, No Pcp Primary [...] Done Comments Zoster Vaccines (1 of 2) 1990 RSV Immunization Adult Patients (1 - 1-dose 75+ series) 2015 Cholesterol Screening (Lipid Panel) 04/20/2024 Falls Risk Assessment 04/20/2024 Hypertension/CHF/CAD Annual BMP Blood Test 04/20/2024 Medicare Annual Wellness Visit 04/20/2024 Osteoporosis Screening (Bone Density Screening) 04/20/2024 Social Influencers of Health Screening 04/20/2024 Depression Screening 06/01/2024 COVID-19 Vaccine (3 - 2024-2 6 season) 2025 10/30/2020, 10/01/2020 Influenza Vaccine (#1) 2025 , 04/20/2018, 06/22/2015 DTaP,Tdap,and Td Vaccines (2 - [...] Insurance MEDICARE MEDICA[place] - [place] Care Teams Fraud Prevention Analyst Relationship Specialty Start Date End Date Physician, No Pcp PCP - General 04/25/24
--- OUTSIDE RECORDS SUMMARY | 2025-05-01 18:50 | XMS_ITS | Clinical Summary ---
Author Organization [facility] Address [address] [facility] [address] [place] [address] Phone Care Team Providers Care Woodworker Name Role Phone Pir CANDY Marks Primary [...] 0 Refills, Maintenance, 01/20/22 9:41:00 EDT, Tablet, [facility], Partial fill upon patient request [...] patient's age to complete this topic Insurance [address] [place] [phone] [facility] ([id number]) [place]OT[place] WOOTEN [phone] [facility] ([id number]) [place] [id number] Care Teams Woodworker Relationship Specialty Start Date End Date Pir Marks MD PCP - General Nephrology 03/11/22
--- OUTSIDE RECORDS SUMMARY | 2025-05-01 18:50 | XMS_ITS | Clinical Summary ---
Author Organization [address] Address [address] [place] [phone] Care Team Providers Care Homoeopath Name Role Phone Obtain, Unable To Primary [...] Immunization (1 - 1-dose 75+ series) 2015 Influenza vaccine 12/30/2024 Covid-19 vaccine series ( season) 2025 Breast cancer screening Discontinued Cervical cancer screening Discontinued Colon cancer screening, Colonoscopy Discontinued Meningococcal B Vaccine Aged Out No l onger eligible based on patient's age to complete this topic Meningococcal Vaccine Aged Out No michelle tiffanie eligible based on patient's age to complete this topic Insurance MEDICARE MEDICARE MEDICARE MEDICARE Care Teams Homoeopath Relationship Specialty Start Date End Date Obtain, Unable To PCP - General 06/20/15
== END 2025-05-01 16:46 | disposition home or self-care (01) ==
LOC: HO.CT 16:45
PROVIDERS: PCP Internal Medicine; Visit Provider Hospitalist
DX: R91.8 Other nonspecific abnormal finding of lung field (principal)
CPT/HCPCS: 71250

== ENCOUNTER → 2025-05-01 16:48 | Outpatient (BNV) | payer MEDICARE, MEDICAID, SELFPAY | PROVIDERS: PCP Internal Medicine; Visit Provider Radiology Diagnostic Radiology | DX: R91.8 Other nonspecific abnormal finding of lung field (principal); N20.0 Calculus of kidney | CPT/HCPCS: 71250 ==

== ENCOUNTER 2025-05-04 15:48 | Outpatient (AMB) | payer MEDICARE, MEDICAID, SELFPAY ==
--- NOTE | 2025-05-04 15:52 | A.OFFPC_ITS ---
Vital Signs 05/04/25 15:53 Height 4 ft 11 in Weight 115 lb 8 oz BMI 23.3 BP 120/62 Blood Pressure Location Lt brachial Position Sitting Pulse 58 Pulse Source Pulse Oximeter Temp 97.1 F Temp Source Temporal Artery Scan Pulse Oximetry (%) 96 Oxygen Delivery Method Room Air Intake Visit Reasons: 6 MNTH F/U Intake Note: Patient is here to follow up on HTN, CKD, HLD, COPD. Fisher Diving Required: Yes Fisher Diving Language: Automatic Casting Machine Operator Name: Dominick (miesha) Information Interpreted: non-clinical & clinical (Pt decline decorator street and building service prefer miesha to translate) Coal Briquette Machine Operator: Present (son and son-law) Accompanied by: Son Allergies levofloxacin Allergy (Intermediate, Verified 05/04/25 15:53) Dizziness aspirin Allergy (Mild, Verified 05/04/25 15:53) Rash dipyridamole (From Persantine) Allergy (Mild, Verified 05/04/25 15:53) Rash Iodinated Contrast Media (IV Contrast Dye) Allergy (Unknown, Verified 05/04/25 15:53) Unknown Tobacco use date assessed: 05/04/25 Fall risk assessment: No Falls in past year Last assessed Fall Risk: 05/04/25 Dental Screening Dental Screen Date: 06/27/24 HPI HPI Comments History of Present Illness Details History of Present Illness - The patient is an 85-year-old female w ho presents for a 6-month regular examination and follow-up after a recent hospitalization for shortness of breath. - Her medications were changed during he r hospital stay, including metoprolol 100 mg. - She received her flu shot while in the hospital. - She currently reports sleeping well. Social History - The patient lives at home with her christopher christy and son-in-law. - Functional Status: She is independent with all activities of daily living, including bathing, dressing, and toileting. - Activity: She walks short distances an d moves around the house without a cane, but uses a wheelchair when she leaves the home. - Nutrition: She does not cook; her fami ly prepares her meals. Results [facility] Medical History (Updated 11/07/24 @ 10:25 by Josh Colby MD) Lung mass Encounter for Medicare annual wellness exam Bite from dog Paroxysmal atrial fibrillation (HFpEF) heart failure with preserved ejection fraction COPD (chronic obstructive pulmonary disease) CKD (chronic kidney disease) HLD (hyperlipidemia) HTN (hypertension) Afib CHF (congestive heart failure) Vitamin D deficiency Pulmonary nodules Osteoporosis Hyperparathyroidism Postoperative hypothyroidism History of thyroid cancer Surgical History History of biopsy History of parathyroidectomy History of total thyroidectomy History of bladder surgery Family History Father Hypertension Mother No problems noted. Social History Housing: Apartment Are you a primary direct care specialist to a significant other at home: No Do you presently have visiting nurse or other home services: No Alcohol intake: never Patient Tobacco Use Status: Former Tobacco user Tobacco use type: Cigarette Years Smoked: 40 e-Cigarette/Vaping Use: Never Used Second Hand Smoke Exposure: Yes service: No Current occupational status: retired and disabled Cognitive needs: Yes (Wheelchair) Hearing needs: No Vision needs: Yes Questionnaire Thrive Questionnaire Date Thrive assessed: 10/27/24 I am a: Parent/Caregiver What is your living situation today?: I have a steady place to live Within the past 12 months, did the food you bought not last and you didn't have the money to get more?: Often true Within the past 12 months, did you worry whether your food would run out before you got money to buy more?: Often true Do you have trouble paying for medicines?: No Do you have trouble getting transportation to medical appointments?: No Do you have trouble paying your heating and electricity bill?: No Do you have trouble taking care of your child, family member or friend?: No Do you have trouble with day-to-day activities such as bathing, preparing meals, shopping, managing finances, etc.?: No Are you currently unemployed and looking for a job?: No Are you interested in more education?: No Please select the resources that you would like help with: None Currently or been in a relationship where the following occur: No concerns reported THRIVE Score: 2 NIYAH-7 AMB Questionnaire NIYAH-7 Date NIYAH - 7 assessed: 06/27/24 Source: Developed by Drs. Tyler Dash, Germaine B.Jean Paul Keith and colleagues, with an educational stephanie from [employer]. Review of Systems Narrative Review of Systems - Constitutional: Denies pain. - Respiratory: Reports a history of shortness of breath that resulted in a recent hospitalization. Physical exam (Primary Care) Vital Signs: Last Vital Signs Temp 97.1 F 05/04/25 15:53 Pulse 58 05/04/25 15:53 BP 120/62 05/04/25 15:53 Pulse Ox 96 05/04/25 15:53 Oxygen Delivery Method Room Air 05/04/25 15:53 BMI result Body Mass Index 23.3 Tobacco/Smoking Status: Tobacco use Status Tobacco use date assessed 05/04/25 05/04/25 16:03 Patient Tobacco Use Status Former Tobacco user 05/04/25 16:03 Tobacco use type Cigarette 05/04/25 16:03 e-Cigarette/Vaping Use Never Used 05/04/25 16:03 Thrive Assessment: Date of Thrive Assessment Date Thrive assessed 10/27/24 05/04/25 16:03 Currently or been in a relationship where the following occur: No concerns reported Narrative Physical Exam General: Appearance normal, both eyes and all related structures Nutritional Appearance: Well nourished Orientation/consciousness: Patient oriented x3 Limitations: Uses wheelchair when outside the house, walks short distances inside the house Head: Normal to inspection Neck: Normal visual inspection Chest: Normal palpation of entire chest wall Respiratory: Normal respiratory effort Neurology: Patient oriented x3 Coding Level of Care Code Est Pt Level 3 (91681) Add On Problem Visit Only Diagnoses HTN (hypertension) I10 Assessment & Plan Assessment & Plan (1) HTN (hypertension): Code(s): I10 - Essential (primary) hypertension Category: Medical Plan Plan - Advised the patient to increase ambulation around the house to build more strength in her legs. - All current prescriptions will be refilled and sent to the pharmacy. Discussion Notes I discussed with the patient and her family the importance of increasing her ambulation around the house to regain strength in her legs. I confirmed that all her medications would be refilled and sent to the pharmacy. All questions were answered. Patient Instructions - Walk around the house more to get more strength in your legs. - All of your prescriptions will be refilled and sent to your pharmacy.
[2025-05-04 15:53] VITALS: BP 120/62; PULSE 58; TEMP 36.2; O2SAT 96; BMI 23.3
--- OUTSIDE RECORDS SUMMARY | 2025-05-04 21:57 | XMS_ITS | Clinical Summary ---
Author Organization [address] Address [address] [place] [phone] Care Team Providers Care Director Of Family Service Center Name Role Phone Obtain, Unable To Primary [...] Insurance MEDICARE MEDICARE MEDICARE MEDICARE Care Teams Director Of Family Service Center Relationship Specialty Start Date End Date Obtain, Unable To PCP - General 06/20/15
--- OUTSIDE RECORDS SUMMARY | 2025-05-04 21:57 | XMS_ITS | Clinical Summary ---
Author Organization [facility] Address [address] [place] [address] Phone Care Team Providers Care Press Worker Helper Name Role Phone Physician, No Pcp Primary [...] Insurance MEDICARE MEDICAID - [place] Care Teams Press Worker Helper Relationship Specialty Start Date End Date Physician, No Pcp PCP - General 04/25/24
--- OUTSIDE RECORDS SUMMARY | 2025-05-04 21:57 | XMS_ITS | Clinical Summary ---
Author Organization [facility] Address [address] [facility] [address] [place] [address] Phone Care Team Providers Care Lead Business Systems Analyst Name Role Phone Pir CANDY Marks Primary [...] 0 Refills, Maintenance, 01/20/22 9:41:00 EDT, Tablet, [facility], Partial fill upon patient [...] patient's age to complete this topic Insurance [address] [place] [id number] [facility] ([id number]) [place]OT[place] [id number] [facility] ([id number]) [place] [id number] Care Teams Lead Business Systems Analyst Relationship Specialty Start Date End Date Pir Marks MD PCP - General Nephrology 03/11/22
== END 2025-05-04 16:19 | disposition home or self-care (01) ==
LOC: HO.HMCH 15:50
PROVIDERS: PCP Internal Medicine; Visit Provider Internal Medicine
DX: I10 Essential (primary) hypertension (principal)

== ENCOUNTER → 2025-05-04 15:48 | Outpatient (BNVA) | payer MEDICARE, MEDICAID, SELFPAY | PROVIDERS: PCP Internal Medicine; Visit Provider Internal Medicine | DX: I10 Essential (primary) hypertension (principal) | CPT/HCPCS: 99212 ==